=== PATIENT | female | born 1945 | race Caucasian/White ===

== ENCOUNTER 2019-04-14 16:36 | Outpatient (CLI) | payer MEDICARE, BC, SELFPAY ==
[2019-04-14 17:54] LABS: Hepatitis B Surface Antigen Negative (Negative)
[2019-04-14 18:00] LABS: HAV RESULT Negative (Negative); Hepatitis B Core IgM Result Negative (Negative)
[2019-04-14 18:12] LABS: HIV 1/2 Ab P24 Ag Result Negative (Negative); Hepatitis C Virus Antibody Negative (Negative)
[2019-04-16 22:19] LABS: NIL 0.01 IU/mL; Quantiferon TB Plus, 1T NEGATIVE (NEGATIVE)
== END 2019-04-14 16:37 | disposition home or self-care (01) ==
PROVIDERS: PCP Internal Medicine
DX: K75.9 Inflammatory liver disease, unspecified (principal); L40.0 Psoriasis vulgaris; Z79.899 Other long term (current) drug therapy; Z11.4 Encounter for screening for human immunodeficiency virus [HIV]
CPT/HCPCS: 36415; 86480; 86703; G0432

== ENCOUNTER 2019-06-02 00:29 | Day surgery (SDC) | payer MEDICARE, BC, SELFPAY ==
[2019-05-27 13:03] VITALS: BMI 25.2
[2019-06-02] MEDS: LACTATED RINGERS 1,000 ML 150 ML IV CONT ×2 (09:22→10:35)
[2019-06-02 09:24] VITALS: BP 135/63; PULSE 72; RESP 16; TEMP 36.5; O2SAT 99
--- NOTE | 2019-06-02 10:03 | WPDGICN ---
Assessment and Plan Additional Plan This is a 73-year-old white female patient seen in evaluation at the request Dr. Juvencio Ortiz. Patient presents for colonoscopy. Patient complains of episode of diarrhea alternating with constipation. She has noticed some blood in her stools. And also notes abdominal pain. She states symptoms began in November 2018. In February she was treated for sinusitis with antibiotics. She has had episodes of incontinence associated with blood in his stools episodically since that time. She now complains of a vague right-sided abdominal and back pain. She has been treated empirically with antibiotics apparently stool cultures have been negative. She denies a fever. Symptoms have improved upon starting Colace 100 mg p.o. daily. Past medical history significant for anxiety. Current medications include Atacand, Nexium, folic acid, Xanax, Colace, allergies include amoxicillin, codeine and erythromycin. Physical exam reveals patient to be alert. Vital signs stable. HEENT exam unremarkable. Lungs are clear to auscultation and percussion. Heart is without murmur or extra sounds. Abdominal exam bowel sounds present soft nontender with no hepatosplenomegaly. Digital external rectal exam normal. Impression 1. Neoplasia screening. It has been 10 years since last exam plan is for colonoscopy. 2. Rectal bleeding. Etiology unclear given her other complaints cannot be certain there is a lesion in the colon plan is for colonoscopy. 3. Constipation. Appears to alternate with diarrhea. This is a change in her usual bowel habits. Plan is to continue Colace. This will be evaluated at time of colonoscopy. High-fiber diet may also be of some benefit. GI Consult Note Consult date/time: 06/02/19 10:03 HPI: Yoana White is a 73 year old female [facility] Social History Social History Smoking status: Never smoker Second hand tobacco smoke exposure: No Alcohol intake: current Gender identity (if verbalized by the patient): Female Meds Home Medications and Allergies Home Medications Medication Instructions Recorded Confirmed Type alprazolam 0.25 mg tablet 0.25 mg PO TID PRN 02/08/19 05/27/19 History candesartan 8 mg tablet 8 mg PO DAILY 02/08/19 05/27/19 History cyanocobalamin (vitamin B-12) 1,000 mcg PO DAILY 02/08/19 05/27/19 History 1,000 mcg tablet esomeprazole magnesium 40 mg 40 mg PO BID cap 02/08/19 05/27/19 History capsule,delayed release ssbqurqr-wab-DV 200 mcg-vit K 15 1 tablet PO DAILY tablet 02/08/19 05/27/19 History mcg-lycope 150 eqj-gpglyk-vedf tablet ergocalciferol (vitamin D2) 1,250 50,000 unit PO MONTHLY #12 cap 03/04/19 05/27/19 Rx mcg (50,000 unit) capsule folic acid 1 mg tablet 1 mg PO DAILY #90 tablet 04/12/19 05/27/19 Rx calcium citrate 250 mg PO DAILY 05/27/19 05/27/19 History Allergies Allergy/AdvReac Type Severity Reaction Status Date / Time amoxicillin Allergy Unknown Gastrointestinal Verified 06/02/19 09:10 Upset clavulanic acid Allergy Unknown Gastrointestinal Verified 06/02/19 09:10 Upset codeine Allergy Unknown Fainting Verified 06/02/19 09:10 erythromycin base Allergy Unknown Gastrointestinal Verified 06/02/19 09:10 Upset Gthldfr-Sbc-Vve Reductase Allergy Unknown Gastrointestinal Verified 06/02/19 09:10 Inhibitor Upset Vital Signs Vital Signs - 24 hr 06/02/19 09:24 Temperature 36.5 C Pulse Rate 72 Respiratory Rate 16 Blood Pressure 135/63 Pulse Oximetry 99
--- NOTE | 2019-06-02 10:11 | WPDANESEPPF ---
Anes - Initial Pre Proc Eval Procedure: Operation Date: 06/02/19 10:00 Proposed Procedures p Colonoscopy - Manan Hill MD Date/Time: 06/02/19 10:11 Surgeon: Manan Hill MD Pre Op Diagnosis: Lower GI Bleeding/ Change In Bowel Habits Patient Data Age: 73 Gender: F Height: 5 ft Weight: 58.3 kg Last Vital Signs Temp 97.7 F 06/02/19 09:24 Pulse 72 06/02/19 09:24 Resp 16 06/02/19 09:24 BP 135/63 06/02/19 09:24 Pulse Ox 99 06/02/19 09:24 Allergies Allergy/AdvReac Type Severity Reaction Status Date / Time amoxicillin Allergy Unknown Gastrointestinal Verified 06/02/19 09:10 Upset clavulanic acid Allergy Unknown Gastrointestinal Verified 06/02/19 09:10 Upset codeine Allergy Unknown Fainting Verified 06/02/19 09:10 erythromycin base Allergy Unknown Gastrointestinal Verified 06/02/19 09:10 Upset Ldtgbic-Ilb-Zlt Reductase Allergy Unknown Gastrointestinal Verified 06/02/19 09:10 Inhibitor Upset Home Medications Medication Instructions Recorded Confirmed Type alprazolam 0.25 mg tablet 0.25 mg PO TID PRN 02/08/19 05/27/19 History candesartan 8 mg tablet 8 mg PO DAILY 02/08/19 05/27/19 History cyanocobalamin (vitamin B-12) 1,000 mcg PO DAILY 02/08/19 05/27/19 History 1,000 mcg tablet esomeprazole magnesium 40 mg 40 mg PO BID cap 02/08/19 05/27/19 History capsule,delayed release baycoduw-swo-MK 200 mcg-vit K 15 1 tablet PO DAILY tablet 02/08/19 05/27/19 History mcg-lycope 150 mqj-vhjbzs-jkmt tablet ergocalciferol (vitamin D2) 1,250 50,000 unit PO MONTHLY #12 cap 03/04/19 05/27/19 Rx mcg (50,000 unit) capsule folic acid 1 mg tablet 1 mg PO DAILY #90 tablet 04/12/19 05/27/19 Rx calcium citrate 250 mg PO DAILY 05/27/19 05/27/19 History Patient hx anesthesia problems: post op nausea/vomiting Family hx anesthesia problems: none PMFSH Past Medical History Medical History (Updated 06/02/19 @ 10:11 by Constantine Monroy MD) Essential (primary) hypertension Hyperthyroidism Mixed hyperlipidemia Social History Social History Smoking status: Never smoker Second hand tobacco smoke exposure: No Alcohol intake: current Gender identity (if verbalized by the patient): Female Anes - Eval Final PreProcedure Day of Procedure 06/02/19 10:11 Patient weight: normal Heart: regular rate and rhythm Lungs: clear to auscultation Airway: Mallampati scale class III Neurological: alert and oriented Last oral intake: >/= 8 hours ASA classification: II Emergent: no Anesthetic plan: proceed Anesthesia type and monitoring: general GIVS and standard monitoring Informed Consent: The patient's anesthetic plan and its attendant risks and benefits were discussed with the patient/family/POA. Questions were solicited and answers provided to the satisfaction of the patient/family/POA.
[2019-06-02 10:57] VITALS: BP 114/63; PULSE 79; RESP 20; O2SAT 94
[2019-06-02 11:07] VITALS: BP 118/68; PULSE 65; RESP 15; O2SAT 98
[2019-06-02 11:17] VITALS: BP 121/66; PULSE 61; RESP 20; O2SAT 97
== END 2019-06-02 11:32 | disposition home or self-care (01) ==
PROVIDERS: PCP Internal Medicine; Visit Provider Internal Medicine Gastroenterology
PROC: 0DJD8ZZ Inspection of Lower Intestinal Tract, Via Natural or Artificial Opening Endoscopic (ICD-10-PCS; CPT 45378; principal; 2019-06-02 10:00)
DX: Z12.11 Encounter for screening for malignant neoplasm of colon (principal); K64.8 Other hemorrhoids; R19.4 Change in bowel habit; I10 Essential (primary) hypertension; E78.2 Mixed hyperlipidemia; E05.90 Thyrotoxicosis, unspecified without thyrotoxic crisis or storm
CPT/HCPCS: G0121; J2704; J7120

== ENCOUNTER 2019-09-03 09:24 | Outpatient (CLI) | payer MEDICARE, BC, SELFPAY ==
[2019-09-03 10:12] LABS: Alanine Aminotransferase 14 U/L (4-35); Albumin Level 4.1 g/dL (3.5-5.1); Alkaline Phosphatase 71 U/L (38-126); Aspartate Amino Transferase 25 U/L (14-36); Bilirubin,Total 0.4 mg/dL (0.2-1.3); Blood Urea Nitrogen 8 mg/dL (7-17); Calcium 9.1 mg/dL (8.4-10.2); Carbon Dioxide 28 mmol/L (22-30); Chloride 104 mmol/L (98-107); Cholesterol 245 mg/dL (0-200); Estimated Glomerular Filt Rate > 60; Glucose 91 mg/dL (65-105); HDL Direct 78 mg/dL; Potassium 4.2 mmol/L (3.4-5.0); Sodium 136 mmol/L (137-145); Triglycerides 202 mg/dL (<150)
[2019-09-03 10:23] LABS: LDL Cholesterol Direct 138 mg/dL
[2019-09-03 10:48] LABS: Vitamin D 25 Hydroxy 27.1 ng/mL
== END 2019-09-03 09:25 | disposition home or self-care (01) ==
PROVIDERS: PCP Internal Medicine; Visit Provider Internal Medicine
DX: E78.5 Hyperlipidemia, unspecified (principal); I10 Essential (primary) hypertension; Z79.899 Other long term (current) drug therapy; E55.9 Vitamin D deficiency, unspecified
CPT/HCPCS: 36415; 80053; 80061; 82306

== ENCOUNTER 2020-01-21 13:07 | Outpatient (CLI) | payer MEDICARE, BC, SELFPAY ==
[2020-01-21 13:45] LABS: Alanine Aminotransferase 16 U/L (4-35); Albumin Level 4.2 g/dL (3.5-5.1); Alkaline Phosphatase 69 U/L (38-126); Anion Gap 7 mmol/L (8-16); Aspartate Amino Transferase 28 U/L (14-36); Bilirubin,Total 0.4 mg/dL (0.2-1.3); Blood Urea Nitrogen 7 mg/dL (7-17); Calcium 9.8 mg/dL (8.4-10.2); Carbon Dioxide 31 mmol/L (22-30); Chloride 101 mmol/L (98-107); Estimated Glomerular Filt Rate > 60; Glucose 119 mg/dL (65-105); Potassium 4.3 mmol/L (3.4-5.0); Sodium 139 mmol/L (137-145)
== END 2020-01-21 13:08 | disposition home or self-care (01) ==
PROVIDERS: PCP Internal Medicine; Visit Provider Internal Medicine
DX: R19.7 Diarrhea, unspecified (principal)
CPT/HCPCS: 36415; 80053

== ENCOUNTER 2020-01-22 11:20 | Outpatient (CLI) | payer MEDICARE, BC, SELFPAY | END 2020-01-22 11:21 | disposition home or self-care (01) | PROVIDERS: PCP Internal Medicine; Visit Provider Internal Medicine | DX: R19.7 Diarrhea, unspecified (principal) | CPT/HCPCS: 87045; 87046; 87427 ==

== ENCOUNTER 2020-03-11 08:47 | Outpatient (CLI) | payer MEDICARE, BC, SELFPAY ==
[2020-03-11 09:17] LABS: Alanine Aminotransferase 14 U/L (4-35); Alkaline Phosphatase 53 U/L (38-126); Anion Gap 5 mmol/L (8-16); Aspartate Amino Transferase 23 U/L (14-36); Bilirubin,Total 0.5 mg/dL (0.2-1.3); Blood Urea Nitrogen 13 mg/dL (7-17); Calcium 9.3 mg/dL (8.4-10.2); Carbon Dioxide 31 mmol/L (22-30); Chloride 101 mmol/L (98-107); Cholesterol 248 mg/dL (0-200); Estimated Glomerular Filt Rate > 60; Glucose 91 mg/dL (65-105); HDL Direct 89 mg/dL; Potassium 4.3 mmol/L (3.4-5.0); Sodium 137 mmol/L (137-145); Triglycerides 178 mg/dL (<150)
[2020-03-11 09:28] LABS: LDL Cholesterol Direct 132 mg/dL
[2020-03-11 10:57] LABS: Vitamin D 25 Hydroxy 33.6 ng/mL
== END 2020-03-11 08:48 | disposition home or self-care (01) ==
PROVIDERS: PCP Internal Medicine; Visit Provider Nurse Practitioner
DX: E78.2 Mixed hyperlipidemia (principal); E55.9 Vitamin D deficiency, unspecified
CPT/HCPCS: 36415; 80053; 80061; 82306

== ENCOUNTER 2020-04-26 11:33 | Outpatient (NON) | payer MEDICARE, BC, SELFPAY ==
[2020-04-26 22:27] LABS: SARS-CoV-2 RNA PCR Negative
== END 2020-04-26 11:34 ==
LOC: ANHCOVIDDT 11:35
PROVIDERS: Family Provider Internal Medicine; PCP Internal Medicine; Visit Provider Internal Medicine
DX: Z20.822 Contact with and (suspected) exposure to COVID-19 (principal); R09.89 Other specified symptoms and signs involving the circulatory and respiratory systems
CPT/HCPCS: C9803; U0003; U0005

== ENCOUNTER 2020-09-11 12:13 | Outpatient (CLI) | payer MEDICARE, BC, SELFPAY ==
[2020-09-11 12:44] LABS: Anion Gap 9 mmol/L (8-16); Blood Urea Nitrogen 10 mg/dL (7-17); Calcium 9.4 mg/dL (8.4-10.2); Carbon Dioxide 29 mmol/L (22-30); Chloride 102 mmol/L (98-107); Estimated Glomerular Filt Rate > 60; Glucose 102 mg/dL (65-105); Potassium 4.4 mmol/L (3.4-5.0); Sodium 140 mmol/L (137-145)
[2020-09-11 13:14] LABS: Vitamin D 25 Hydroxy 39.7 ng/mL
== END 2020-09-11 12:14 | disposition home or self-care (01) ==
PROVIDERS: PCP Internal Medicine; Visit Provider Internal Medicine
DX: E55.9 Vitamin D deficiency, unspecified (principal); I10 Essential (primary) hypertension
CPT/HCPCS: 36415; 80048; 82306

== ENCOUNTER 2021-03-03 14:23 | Emergency (ER) | payer MEDICARE, BC, SELFPAY ==
--- NOTE | ~2021-03-03 | XR_ITS ---
EXAMINATION: XR hand LT min 3V DATE: 03/03/2021 14:57 INDICATION: Left hand pain. Fall. TECHNIQUE: 3 views of left hand were obtained. COMPARISON: None. FINDINGS: Bone alignment is normal. No fracture. There is severe osteoarthritis of first carpometacar pal joint and mild osteoarthrosis of first and second metacarpophalangeal joints and second and third distal interphalangeal joints. IMPRESSION: 1. Polyarticular osteoarthritis. Reviewed, dictated and finalized at location A. WAY SIGNAL TECHNICIAN
[2021-03-03 14:35] VITALS: BP 128/74; PULSE 78; RESP 16; TEMP 37.1; O2SAT 100
--- NOTE | 2021-03-03 15:20 | ED.UPPEXIN ---
HPI - Extremity Injury (Upper) General Chief Complaint: Extremity Injury, Upper Stated Complaint: left hand swelling/pain Time Seen by Provider: 03/03/21 15:20 Source: patient Mode of arrival: ambulatory Limitations: no limitations History of Present Illness HPI narrative: Bladimir White is a 75 yo female with a PMH of anxiety, HTN, GERD, [facility] after a fall on Friday onto her left hand, has been taking Tylenol, can move but has pain and also has been wearing brace. Related Data Home Medications Medication Instructions Recorded Confirmed cyanocobalamin (vitamin B-12) 1,000 mcg PO DAILY 02/08/19 03/03/21 1,000 mcg tablet kqkwxvcs-xex-HF 200 mcg-vit K 15 1 tablet PO DAILY tablet 02/08/19 03/03/21 mcg-lycope 150 fap-otprfx-hjbi tablet calcium citrate 250 mg PO DAILY 05/27/19 03/03/21 clobetasol 0.05 % topical ointment 1 applic TOPICAL DAILY 09/08/19 03/03/21 betamethasone dipropionate TOPICAL 03/03/21 calcipotriene TOPICAL 03/03/21 triamcinolone acetonide TOPICAL 03/03/21 Allergies Allergy/AdvReac Type Severity Reaction Status Date / Time amoxicillin Allergy Mild Gastrointestinal Verified 03/03/21 14:49 Upset clavulanic acid Allergy Mild Gastrointestinal Verified 03/03/21 14:49 Upset codeine Allergy Mild Fainting Verified 03/03/21 14:49 erythromycin base Allergy Mild Gastrointestinal Verified 03/03/21 14:49 Upset Hfrnuir-NZP-LdL Reductase Allergy Mild Gastrointestinal Verified 03/03/21 14:49 Inhibitor Upset [Zvrgtce-Upx-Vhx Reductase Inhibitor] Review of Systems Review of Systems: CONSTITUTIONAL: Denies fever, chills, sweats. EYES: Denies visual changes, redness, discharge. ENT: Denies rhinorrhea, congestion, sore throat, otalgia. CARDIOVASCULAR: Denies chest pain, palpitations, edema. RESPIRATORY: Denies dyspnea, wheezing, cough GASTROINTESTINAL: Denies abdominal pain, nausea, vomiting, diarrhea. GENITOURINARY: Denies dysuria, hematuria, abnormal discharge SKIN: Denies rash or itching. NEUROLOGIC: Denies numbness, or focal weakness. PSYCHIATRIC: Denies anxiety or depression. Left hand pain after fall PMFSH Past Medical History Medical History Essential (primary) hypertension Hyperthyroidism Mixed hyperlipidemia Social History Social History Smoking status: Never smoker Second hand tobacco smoke exposure: Yes Alcohol intake: current Drinks per week: 10 Gender identity (if verbalized by the patient): Female Comments At time of signature, I agree with nursing past medical, surgical, social and family history. There is no relevant family history pertinent to the presenting complaint. Exam Narrative: GENERAL: This is a well-nourished, well-developed patient, in mild distress. HEAD: normocephalic, atraumatic. EYES: Sclera clear/white. Vision is grossly intact. EARS: External ears normal. Hearing grossly intact. NOSE: External nose normal without nasal discharge, THROAT: Mucous membranes moist, NECK: Neck supple, non-tender CARDIOVASCULAR: Regular rate and rhythm without murmurs, gallops, or rubs. RESPIRATORY: Clear to auscultation. Breath sounds equal bilaterally. No wheezes, rales, or rhonchi. GASTROINTESTINAL: Abdomen soft, SKIN: warm, intact with no suspicious lesions or rash, good texture and turgor. NEURO: awake, alert, and oriented to person, place and time. There were no obvious focal neurologic abnormalities. Steady gait EXTREMITIES: Normal range of motion. Left hand is puffy on dorsum side although patient states is less than it has been, is able to move all fingers and move wrist but has some pain BACK: Nontender without deformity Course Course Emergency Course: Patient fell while putting up [employer] decorations on Friday and hurt left hand X-ray left hand: Polyarticular osteoarthritis, no acute fracture bones were n
== END 2021-03-03 15:40 | disposition home or self-care (01) ==
PROVIDERS: Emergency Provider Nurse Practitioner; PCP Internal Medicine
DX: S63.502A Unspecified sprain of left wrist, initial encounter (principal); S66.912A Strain of unspecified muscle, fascia and tendon at wrist and hand level, left hand, initial encounter; I10 Essential (primary) hypertension; E78.2 Mixed hyperlipidemia; X58.XXXA Exposure to other specified factors, initial encounter
CPT/HCPCS: 73130; 99213; G0463

== ENCOUNTER 2021-03-14 09:46 | Outpatient (CLI) | payer MEDICARE, BC, SELFPAY ==
[2021-03-14 10:59] LABS: Alanine Aminotransferase 15 U/L (4-35); Albumin Level 4.3 g/dL (3.5-5.1); Alkaline Phosphatase 65 U/L (38-126); Anion Gap 11 mmol/L (8-16); Aspartate Amino Transferase 28 U/L (14-36); Bilirubin,Total 0.5 mg/dL (0.2-1.3); Blood Urea Nitrogen 8 mg/dL (7-17); Calcium 9.3 mg/dL (8.4-10.2); Carbon Dioxide 26 mmol/L (22-30); Chloride 102 mmol/L (98-107); Cholesterol 242 mg/dL (0-200); Estimated Glomerular Filt Rate > 60; Glucose 106 mg/dL (65-110); HDL Direct 106 mg/dL; Potassium 4.3 mmol/L (3.4-5.0); Sodium 139 mmol/L (137-145); Triglycerides 120 mg/dL (<150)
[2021-03-14 11:10] LABS: LDL Cholesterol Direct 115 mg/dL
[2021-03-14 11:24] LABS: Vitamin D 25 Hydroxy 61.1 ng/mL
== END 2021-03-14 09:47 | disposition home or self-care (01) ==
LOC: ANHLAB 09:50
PROVIDERS: PCP Internal Medicine; Visit Provider Nurse Practitioner
DX: E78.2 Mixed hyperlipidemia (principal); E55.9 Vitamin D deficiency, unspecified
CPT/HCPCS: 36415; 80053; 80061; 82306

== ENCOUNTER 2021-11-01 08:22 | Outpatient (CLI) | payer MEDICARE, BC, SELFPAY ==
[2021-11-01 09:01] LABS: Alanine Aminotransferase 16 U/L (6-35); Albumin Level 4.1 g/dL (3.5-5.1); Alkaline Phosphatase 59 U/L (38-126); Anion Gap 8 mmol/L (8-16); Aspartate Amino Transferase 28 U/L (14-36); Bilirubin,Total 0.6 mg/dL (0.2-1.3); Blood Urea Nitrogen 9 mg/dL (7-17); Calcium 8.6 mg/dL (8.4-10.2); Carbon Dioxide 27 mmol/L (22-30); Chloride 103 mmol/L (98-107); Estimated Glomerular Filt Rate > 60; Glucose 101 mg/dL (65-110); Potassium 4.5 mmol/L (3.4-5.0); Sodium 138 mmol/L (137-145)
[2021-11-01 09:14] LABS: Vitamin D 25 Hydroxy 69.4 ng/mL
== END 2021-11-01 08:23 | disposition home or self-care (01) ==
LOC: ANHLAB 08:24
PROVIDERS: PCP Internal Medicine; Visit Provider Internal Medicine
DX: E55.9 Vitamin D deficiency, unspecified (principal); Z79.899 Other long term (current) drug therapy; I10 Essential (primary) hypertension
CPT/HCPCS: 36415; 80053; 82306

== ENCOUNTER 2022-05-25 10:06 | Outpatient (CLI) | payer MEDICARE, BC, SELFPAY ==
[2022-05-25 11:16] LABS: Hematocrit 41.4 % (37.0-47.0); Hemoglobin 13.8 g/dL (12.0-15.0); Mean Corpuscular HGB Conc 33.3 g/dl (32-36); Mean Corpuscular Hemoglobin 32.5 pg (26-34); Mean Corpuscular Volume 97.4 fl (80-100); Mean Platelet Volume 11.6 fl (7.4-10.4); Platelet Count Result 226 k/mm3 (150-375); Red Blood Count 4.25 M/mm3 (4.2-5.4); Red Cell Distribution Width 12.6 % (11.5-14.5); White Blood Count 4.9 K/mm3 (4.5-10.0)
[2022-05-25 11:33] LABS: Alanine Aminotransferase 16 U/L (6-35); Albumin Level 4.2 g/dL (3.5-5.1); Alkaline Phosphatase 54 U/L (38-126); Anion Gap 5 mmol/L (8-16); Aspartate Amino Transferase 26 U/L (14-36); Bilirubin,Total 0.5 mg/dL (0.2-1.3); Blood Urea Nitrogen 8 mg/dL (7-17); Calcium 8.9 mg/dL (8.4-10.2); Carbon Dioxide 27 mmol/L (22-30); Chloride 102 mmol/L (98-107); Estimated Glomerular Filt Rate > 60; Glucose 96 mg/dL (65-110); Potassium 4.2 mmol/L (3.4-5.0); Sodium 134 mmol/L (137-145)
[2022-05-25 11:57] LABS: Vitamin D 25 Hydroxy 47.8 ng/mL
== END 2022-05-25 10:07 | disposition home or self-care (01) ==
LOC: ANHLAB 10:10
PROVIDERS: PCP Internal Medicine; Referring Provider Nurse Practitioner; Visit Provider Internal Medicine
DX: K21.9 Gastro-esophageal reflux disease without esophagitis (principal); I10 Essential (primary) hypertension; E55.9 Vitamin D deficiency, unspecified
CPT/HCPCS: 36415; 80053; 82306; 85027

== ENCOUNTER 2022-08-13 16:04 | Emergency (ER) | payer MEDICARE, BC, SELFPAY ==
[2022-08-13 16:11] VITALS: BP 146/80; PULSE 75; RESP 16; TEMP 36.6; O2SAT 99
[2022-08-13 16:15] VITALS: BP 146/80; PULSE 75; RESP 16; TEMP 36.6; O2SAT 99
--- NOTE | 2022-08-13 16:33 | ED.GENADULT ---
HPI - General Adult General Chief complaint: Dental/Oral Stated complaint: Tongue Pain Time Seen by Provider: 08/13/22 16:33 Source: patient, RN notes reviewed and old records reviewed Mode of arrival: ambulatory Limitations: no limitations History of Present Illness HPI narrative: 76-year-old female presents to the [facility] with tongue pain for 6 weeks Patient states that 6 weeks ago she burn to the left lateral tongue with some tomato soup. Went on vacation for couple weeks, tried eating some teriyaki and states the pain or burning sensation flared up. Has history of GERD and anxiety Has appointment with Dr. Alston on September 03 Related Data Home Medications Medication Instructions Recorded Confirmed cyanocobalamin (vitamin B-12) 1,000 mcg PO DAILY 02/08/19 08/13/22 1,000 mcg tablet (Vitamin B-12) calcium citrate 250 mg PO DAILY 05/27/19 08/13/22 Allergies Allergy/AdvReac Type Severity Reaction Status Date / Time amoxicillin Allergy Mild Gastrointestinal Verified 05/28/22 13:15 Upset clavulanic acid Allergy Mild Gastrointestinal Verified 05/28/22 13:15 Upset codeine Allergy Mild Fainting Verified 05/28/22 13:15 erythromycin base Allergy Mild Gastrointestinal Verified 05/28/22 13:15 Upset Aqwuybm-GGS-XlA Reductase Allergy Mild Gastrointestinal Verified 05/28/22 13:15 Inhibitor Upset [Gkbiqwc-Ngi-Vng Reductase Inhibitor] Review of Systems Review of Systems: All systems reviewed & are unremarkable except as noted in HPI and below Constitutional: Constitutional: Reports no additional constitutional complaints Eyes: Eyes: Reports no additional eye complaints ENT: Reports as per HPI Cardiovascular: Cardiovascular: Reports no additional cardiovascular complaints, Denies chest pain and Denies dyspnea Respiratory: Respiratory: Reports no additional respiratory complaints, Denies chest congestion, Denies cough and Denies dyspnea Gastrointestinal: Gastrointestinal: Reports no additional gastrointestinal complaints, Denies abdominal pain, Denies nausea and Denies vomiting Musculoskeletal: Musculoskeletal: Reports no additional musculoskeletal complaints Integumentary/Breasts: Skin/Breast: Reports system reviewed and no additional complaints, except as docu Neurologic: Reports system reviewed and no additional complaints, except as documented Psychiatric: Psychiatric: Reports no additional psychiatric complaints Allergic/Immunologic: Allergic/Immunologic: Reports no additional allergic/immunologic complaints PMFSH Past Medical History Medical History Anxiety Chronic GERD COVID-19 Essential (primary) hypertension Hyperthyroidism Mixed hyperlipidemia Seasonal allergic rhinitis Vitamin D deficiency Social History Social History Smoking status: Never smoker Second hand tobacco smoke exposure: Yes Alcohol intake: current Drinks per week: 7 Substance use: never Substance use type: does not use Gender identity (if verbalized by the patient): Female Comments At the time of my signature, I reviewed and agree with the nursing past medical, surgical, social, and family history. There is no relevant family history pertinent to the patient complaint. Exam Const: General: cooperative, healthy appearing, comfortable, no acute distress, well developed, alert and well nourished Nutritional Appearance: well nourished Orientation/consciousness: patient oriented x3 Limitations: no limitations HENMT: Head: normal to inspection Ears: hearing grossly normal bilaterally and external ears normal Face/Nose/Sinus: Normal external nose present, Normal nares present, Normal nasal mucous membranes and turbinates present and normal facial exam Face and sinus: normal facial exam Mouth: Yes Normal oral and palatal mucosa present, Yes lip normal and Yes moist mucous membranes Brittnee
== END 2022-08-13 16:59 | disposition home or self-care (01) ==
PROVIDERS: Emergency Provider Nurse Practitioner; PCP Family Medicine
DX: K14.8 Other diseases of tongue (principal); I10 Essential (primary) hypertension; E05.90 Thyrotoxicosis, unspecified without thyrotoxic crisis or storm; E78.2 Mixed hyperlipidemia; K21.9 Gastro-esophageal reflux disease without esophagitis; F41.9 Anxiety disorder, unspecified; Z86.16 Personal history of COVID-19
CPT/HCPCS: 99212; G0463

== ENCOUNTER 2022-10-03 10:00 | Outpatient (CLI) | payer MEDICARE, BC, SELFPAY | END 2022-10-03 10:01 | disposition home or self-care (01) | PROVIDERS: PCP Family Medicine; Visit Provider Family Medicine | DX: I10 Essential (primary) hypertension (principal) | CPT/HCPCS: 36415; 84443 ==

== ENCOUNTER 2022-12-06 09:53 | Outpatient (CLI) | payer MEDICARE, BC, SELFPAY ==
--- NOTE | ~2022-12-06 | DEXA_ITS ---
Bone Density Report Name: KEYLA WILKINSON Age: 77 Sex: Female Ethnicity: White Date of : 1945 Indication: postmenopausal; screening for osteoporosis; height loss; Referring Provider: TITUS BEGUM Study: Bone densitometry was performed. Exam Date: December 06, 2022 Accession number: [id number] Bone Density: Region BMD T-score Z-score Classification AP Spine(L1-L4) 0.971 -0.7 1.8 Normal Femoral Neck (Left) 0.772 -0.7 1.5 Normal Total Hip (Left) 0.849 -0.8 1.1 Normal Femoral Neck (Right) 0.769 -0.7 1.5 Normal Total Hip (Right) 0.835 -0.9 1.0 Normal Total Hip Mean 0.842 -0.9 1.1 Normal World Health Organization criteria for BMD impression classify patients as: Normal (T-score at or above -1.0), Osteopenia (T-score between -1.0 and -2.5), or Osteoporosis (T-score at or below -2.5). 10-year Fracture Risk: FRAX not reported because: All T-scores for Spine Total, Hip Total, Femoral Neck at or above -1.0 Clinical Information Provided by Patient: Has used the following medications: Vitamin D, Calcium Patient maximum height was 61 Menopause Age: 48 No regular weight bearing exercise Does not regularly consume dairy products Drinks caffeinated beverages Onset of menses at age 10 Number of children 0 Impression: The patient has normal bone mass. Discussion: BONE DENSITY IS ABOVE THE MINIMUM DESIRABLE LEVEL AT ALL SKELETAL SITES TESTED. This patient?s bone mineral density is above the minimum desirable level (T-score -1.0 or better) at all sites measured. The patient should follow a healthful lifestyle (good nutrition with adequate calcium and vitamin D, and appropriate weight-bearing exercise). Follow-Up: Consider repeating this study in 5 years or sooner if there is some new clinical indication. Reported by: MARITO on 12/06/2022 10:35:00 AM. Reviewed, dictated and finalized at location AJennifer IQBAL
== END 2022-12-06 09:54 | disposition home or self-care (01) ==
PROVIDERS: PCP Family Medicine; Visit Provider Family Medicine
DX: Z78.0 Asymptomatic menopausal state (principal)
CPT/HCPCS: 77080

== ENCOUNTER 2023-03-10 09:14 | Outpatient (CLI) | payer MEDICARE, BC, SELFPAY ==
[2023-03-10 10:29] LABS: Basophils Absolute Auto 0.1 K/mm3 (0.0-0.1); Basophils Percent Auto 1.2 % (0.2-1.2); Eosinophils Absolute Auto 0.1 K/mm3 (0-0.3); Hematocrit 42.5 % (37.0-47.0); Hemoglobin 13.5 g/dL (12.0-15.0); Immature Granulocyte Absolute 0.02 K/mm3 (0.00-0.031); Immature Granulocyte Percent A 0.4 % (0-0.5); Lymphocytes Absolute Auto 1.15 K/mm3 (0.9-3.2); Lymphocytes Percent Auto 22.5 % (18.3-44.2); Mean Corpuscular HGB Conc 31.8 g/dl (32-36); Mean Corpuscular Hemoglobin 32.5 pg (26-34); Mean Corpuscular Volume 102.2 fl (80-100); Mean Platelet Volume 11.3 fl (7.4-10.4); Monocytes Absolute Auto 0.4 K/mm3 (0.1-0.6); Monocytes Percent Auto 8.6 % (2.6-8.5); Neutrophils Absolute Auto 3.3 K/mm3 (1.3-6.7); Neutrophils Percent Auto 65.3 % (45.5-73.1); Platelet Count Result 228 k/mm3 (150-375); Red Blood Count 4.16 M/mm3 (4.2-5.4); Red Cell Distribution Width 12.8 % (11.5-14.5); White Blood Count 5.1 K/mm3 (4.5-10.0)
[2023-03-10 10:40] LABS: Alanine Aminotransferase 13 U/L (6-35); Albumin Level 4.1 g/dL (3.5-5.1); Alkaline Phosphatase 62 U/L (38-126); Anion Gap 3 mmol/L (8-16); Aspartate Amino Transferase 24 U/L (14-36); Bilirubin,Total 0.7 mg/dL (0.2-1.3); Blood Urea Nitrogen 7 mg/dL (7-17); Carbon Dioxide 29 mmol/L (22-30); Chloride 105 mmol/L (98-107); Cholesterol 245 mg/dL (0-200); Estimated Glomerular Filt Rate > 60; Glucose 95 mg/dL (65-110); HDL Direct 107 mg/dL; Sodium 137 mmol/L (137-145); Triglycerides 164 mg/dL (<150)
[2023-03-10 10:50] LABS: LDL Cholesterol Direct 106 mg/dL
[2023-03-10 12:15] LABS: Vitamin D 25 Hydroxy 43.4 ng/mL
== END 2023-03-10 09:15 | disposition home or self-care (01) ==
PROVIDERS: PCP Family Medicine; Visit Provider Family Medicine
DX: I10 Essential (primary) hypertension (principal); F32.A Depression, unspecified; E55.9 Vitamin D deficiency, unspecified; J30.2 Other seasonal allergic rhinitis; F41.9 Anxiety disorder, unspecified; K21.9 Gastro-esophageal reflux disease without esophagitis; E78.2 Mixed hyperlipidemia; M54.50 Low back pain, unspecified; G89.29 Other chronic pain; Z79.890 Hormone replacement therapy; R92.8 Other abnormal and inconclusive findings on diagnostic imaging of breast; E05.90 Thyrotoxicosis, unspecified without thyrotoxic crisis or storm
CPT/HCPCS: 36415; 80053; 80061; 82306; 85025

== ENCOUNTER 2023-07-29 15:12 | Emergency (ER) | payer MEDICARE, BC, SELFPAY ==
[2023-07-29 15:20] VITALS: BP 137/64; PULSE 94; RESP 18; TEMP 36.6; O2SAT 98
--- NOTE | 2023-07-29 15:20 | ED.URI ---
HPI - URI/Sore Throat General Chief Complaint: Upper Respiratory Infection Stated Complaint: Sinus/Sore Throat Time Seen by Provider: 07/29/23 15:38 Source: patient and RN notes reviewed Mode of arrival: ambulatory Limitations: no limitations History of Present Illness HPI Narrative: 77-year-old female presents with concern for 6 day history of sinus drainage, sore throat, painful uvula. Reports she has been taking Claritin-D, Aleve and Tylenol, Flonase without much relief. Reports she was exposed to strep about 10 days ago. MD elicited complaint: sore throat Related Data Home Medications Medication Instructions Recorded Confirmed cyanocobalamin (vitamin B-12) 1,000 mcg PO DAILY 02/08/19 07/29/23 1,000 mcg tablet (Vitamin B-12) calcium citrate 250 mg PO DAILY 05/27/19 07/29/23 Allergies Allergy/AdvReac Type Severity Reaction Status Date / Time amoxicillin Allergy Mild Gastrointestinal Verified 07/29/23 15:17 Upset clavulanic acid Allergy Mild Gastrointestinal Verified 07/29/23 15:17 Upset codeine Allergy Mild Fainting Verified 07/29/23 15:17 erythromycin base Allergy Mild Gastrointestinal Verified 07/29/23 15:17 Upset Fmfvkvp-ELV-UsK Reductase Allergy Mild Gastrointestinal Verified 07/29/23 15:17 Inhibitor Upset [Rknofxw-Kvp-Wvd Reductase Inhibitor] Review of Systems Review of Systems: CONSTITUTIONAL: Denies malaise, chills, sweats, or fever. EYES: Denies visual changes, redness, or discharge. ENT: Reports rhinorrhea, congestion, and sore throat. CARDIOVASCULAR: Denies chest pain, palpitations, or edema. RESPIRATORY: Denies cough. Denies dyspnea. GASTROINTESTINAL: Denies abdominal pain, nausea, vomiting, diarrhea SKIN: Denies rash or itching. MUSCULOSKELETAL: Denies myalgia. NEUROLOGIC: Denies headache. All systems reviewed & are unremarkable except as noted in HPI and below PMFSH Past Medical History Medical History (Updated 07/29/23 @ 15:45 by Estefany Jernigan NP) Anxiety Chronic GERD COVID-19 Essential (primary) hypertension Hyperthyroidism Internal hemorrhoid Mixed hyperlipidemia Seasonal allergic rhinitis Vitamin D deficiency Social History Social History Smoking status: Never smoker Second hand tobacco smoke exposure: Yes Alcohol intake: current Drinks per week: 7 Alcohol use details: a glass of wine at dinner Substance use: never Substance use type: does not use Lack of Transportation: No Lack of Food: Never True Current Housing: I Have Housing Concerned About Future Housing: No Difficulty Paying Gas/Electric Bills: No Difficulty Paying for Meds: No Currently Unemployed: No Education: High School Diploma/GED Difficulty w/ Childcare or Family Care: No Gender identity (if verbalized by the patient): Female Comments At time of signature, agree with nursing past medical, surgical, social and family history. There is no relevant family history pertinent to the presenting complaint Exam Narrative: GENERAL: Well-appearing, well-nourished, and in no acute distress. HEAD: Normocephalic EYES: PERRLA, conjunctivae clear ENT: Nares clear, clear discharge. Mucous membranes moist. TM pearly morris with dull light reflex bilaterally; no tragal tenderness. Oropharynx not erythematous blister noted on the roof of the mouth near the uvula. Tonsils not enlarged and without exudate, no drooling, no hoarseness, no trismus, uvula midline. NECK: Supple. No lymphadenopathy CHEST: Clear to auscultation, breath sounds equal. No wheezing, rhonchi, rales, or stridor. No respiratory distress, speaks in full sentences. HEART: Regular rate and rhythm. No murmur heard. SKIN: Warm, dry, no rash. NEURO: Alert and oriented x3. PSYCH: Normal mood and affect Course Course Emergency Course: Patient is aware of diagnosis, understands and agrees to treatment plan. Anticipatory guidance given. Vaibhav
== END 2023-07-29 15:51 | disposition home or self-care (01) ==
PROVIDERS: Emergency Provider Nurse Practitioner; PCP Family Medicine
DX: J06.9 Acute upper respiratory infection, unspecified (principal); K21.9 Gastro-esophageal reflux disease without esophagitis; I10 Essential (primary) hypertension; E05.90 Thyrotoxicosis, unspecified without thyrotoxic crisis or storm; E78.2 Mixed hyperlipidemia; Z86.16 Personal history of COVID-19
CPT/HCPCS: 87081; 87880; 99213; G0463

== ENCOUNTER 2023-09-22 09:58 | Outpatient (CLI) | payer MEDICARE, BC, SELFPAY ==
[2023-09-22 11:15] LABS: Alanine Aminotransferase 15 U/L (6-35); Albumin Level 3.9 g/dL (3.5-5.1); Alkaline Phosphatase 61 U/L (38-126); Anion Gap 5 mmol/L (4-12); Aspartate Amino Transferase 25 U/L (14-36); Bilirubin,Total 0.7 mg/dL (0.2-1.3); Blood Urea Nitrogen 10 mg/dL (7-17); Carbon Dioxide 28 mmol/L (22-30); Chloride 105 mmol/L (98-107); Estimated Glomerular Filt Rate > 60; Glucose 98 mg/dL (65-110); Potassium 4.1 mmol/L (3.4-5.0); Sodium 138 mmol/L (137-145)
== END 2023-09-22 09:59 | disposition home or self-care (01) ==
PROVIDERS: PCP Family Medicine; Visit Provider Nurse Practitioner Family
DX: E05.90 Thyrotoxicosis, unspecified without thyrotoxic crisis or storm (principal); I10 Essential (primary) hypertension
CPT/HCPCS: 36415; 80053

== ENCOUNTER 2023-10-08 08:48 | Outpatient (CLI) | payer MEDICARE, BC, SELFPAY ==
--- NOTE | 2023-10-08 08:50 | ECHO_ITS ---
Patient Info Name: Yoana White Age: 77 years : 1945 Gender: Female Ht: 60 in Wt: 127 lbs BSA: 1.57 m2 HR: 69 bpm BP: 153 / 88 mmHg Technical Quality: Good Exam Date: 10/08/2023 9:17 AM Exam Location: Echo Lab Patient Status: Outpatient Admit Date: 10/08/2023 Staff Ordering Physician: Keon Alston MD Traveling Missionary: Taz Parks RDCS Attending Provider: Keon Alston MD Referring Physician: Gamaliel HAIRSTON; Exam Type: CA echo doppler color flow Study Info Indications - Aortic valve murmur Complete two-dimensional, color flow and Doppler transthoracic echocardiogram is performed. Summary 1. Complete two-dimensional, color flow and Doppler transthoracic echocardiogram is performed. 2. Left ventricular chamber dimension is normal. 3. Left ventricular systolic function is normal, estimated at 60-65%. 4. The left ventricular diastolic function is abnormal. 5. E/e' 10 is mildly elevated. 6. There is trace mitral valve regurgitation. 7. There is trace tricuspid valve regurgitation. 8. No pulmonary hypertension, estimated pulmonary arterial systolic pressure is 27 mmHg. Left Ventricle E/e' 10 is mildly elevated. Left ventricular chamber dimension is normal. Left ventricular systolic function is normal, estimated at 60-65%. The left ventricular diastolic function is abnormal. Right Ventricle Right ventricular systolic function is normal and with normal TAPSE 1.9 cm. Right ventricular chamber dimension is normal. Left Atria Left atrial chamber dimension is normal. Right Atria Right atrial chamber dimension is normal. Aortic Valve The aortic valve is trileaflet. There is no aortic valve stenosis. There is no aortic valve regurgitation. Pulmonic Valve There is no pulmonic regurgitation. Mitral Valve There is no mitral valve stenosis. There is trace mitral valve regurgitation. Tricuspid Valve There is trace tricuspid valve regurgitation. No pulmonary hypertension, estimated pulmonary arterial systolic pressure is 27 mmHg. Pericardium/Pleural There is no pericardial effusion. Inferior Vena Cava Normal inferior vena cava with >50% collapse upon inspiration consistent with normal right atrial pressure, 5 mmHg. Aorta The aortic root size at the sinus of Valsalva is normal. Left Ventricular Outflow Tract Name Value Normal LVOT 2D LVOT Diameter 1.9 cm LVOT Doppler LVOT Peak Gradient 5 mmHg LVOT Mean Gradient 2 mmHg LVOT VTI 24 cm LVOT VTI/AV VTI Ratio 0.8 LVOT Stroke Volume 65 ml LVOT CO 4.2 l/min LVOT CI 2.7 l/min/m2 Pulmonic Valve Name Value Normal PV Doppler PV Peak Gradient 3 mmHg Mitral Valve Name
== END 2023-10-08 08:49 | disposition home or self-care (01) ==
LOC: ANHCARD 08:49
PROVIDERS: PCP Family Medicine; Visit Provider Family Medicine
DX: I35.8 Other nonrheumatic aortic valve disorders (principal); I51.89 Other ill-defined heart diseases; Z79.899 Other long term (current) drug therapy
CPT/HCPCS: 93306

== ENCOUNTER 2023-12-12 10:10 | Emergency (ER) | payer MEDICARE, BC, SELFPAY ==
--- NOTE | ~2023-12-12 | XR_ITS ---
EXAMINATION: XR chest 2V DATE: 12/12/2023 10:44 INDICATION: Cough and shortness of breath TECHNIQUE: frontal and lateral views of the chest were obtained. COMPARISON: Chest radiograph dated 12/23/2014 FINDINGS: Again seen is mild elevation of left hemidiaphragm. No focal airspace opacities, pulmonary edema, ple ural effusion or pneumothorax. The cardiomediastinal silhouette is normal. Mild thoracic kyphosis wit h moderate spondylosis. IMPRESSION: 1. Unchanged mild elevation the left hemidiaphragm. No acute cardiopulmonary disease. Reviewed, dictated and finalized at location B. IMPRESSION: 1. Unchanged mild elevation the left hemidiaphragm. No acute cardiopulmonary di sease.
[2023-12-12 10:11] VITALS: BP 144/72; PULSE 74; RESP 18; TEMP 37.3; O2SAT 99
--- NOTE | 2023-12-12 10:22 | ED.URI ---
HPI - URI/Sore Throat General Chief Complaint: Upper Respiratory Infection Stated Complaint: Sinus/SOB Time Seen by Provider: 12/12/23 10:23 Source: patient, RN notes reviewed and old records reviewed Mode of arrival: ambulatory Limitations: no limitations History of Present Illness HPI Narrative: 78-year-old female presents to the [facility] with complaints of chest congestion, intermittent shortness of breath, scratchy throat. Symptoms started 8 days ago and progressed 7 days ago. Has been taking Claritin D and NyQuil. Onset (ago): day(s) (7-8) Treatments prior to arrival: cold medicine Related Data Home Medications Medication Instructions Recorded Confirmed cyanocobalamin (vitamin B-12) 1,000 mcg PO DAILY 02/08/19 12/12/23 1,000 mcg tablet (Vitamin B-12) calcium citrate 250 mg PO DAILY 05/27/19 12/12/23 lutein 20 mg tablet 20 mg PO DAILY 09/23/23 12/12/23 Allergies Allergy/AdvReac Type Severity Reaction Status Date / Time amoxicillin Allergy Mild Gastrointestinal Verified 12/12/23 10:12 Upset clavulanic acid Allergy Mild Gastrointestinal Verified 12/12/23 10:12 Upset codeine Allergy Mild Fainting Verified 12/12/23 10:12 erythromycin base Allergy Mild Gastrointestinal Verified 12/12/23 10:12 Upset Ujobqho-NMT-ZtB Reductase Allergy Mild Gastrointestinal Verified 12/12/23 10:12 Inhibitor Upset [Qurnamh-Eyt-Ysl Reductase Inhibitor] Review of Systems Review of Systems: All systems reviewed & are unremarkable except as noted in HPI and below Constitutional: Constitutional: Reports no additional constitutional complaints Eyes: Eyes: Reports no additional eye complaints ENT: Reports as per HPI Cardiovascular: Cardiovascular: Reports no additional cardiovascular complaints, Denies chest pain and Denies dyspnea Respiratory: Respiratory: Reports as per HPI, Reports chest congestion, Reports cough and Denies dyspnea Gastrointestinal: Gastrointestinal: Reports no additional gastrointestinal complaints, Denies abdominal pain, Denies nausea and Denies vomiting Musculoskeletal: Musculoskeletal: Reports no additional musculoskeletal complaints Integumentary/Breasts: Skin/Breast: Reports system reviewed and no additional complaints, except as docu Neurologic: Reports system reviewed and no additional complaints, except as documented Psychiatric: Psychiatric: Reports no additional psychiatric complaints Allergic/Immunologic: Allergic/Immunologic: Reports no additional allergic/immunologic complaints PMFSH Past Medical History Medical History Anxiety Chronic GERD COVID-19 Essential (primary) hypertension Hyperthyroidism Internal hemorrhoid Mixed hyperlipidemia Seasonal allergic rhinitis Vitamin D deficiency Social History Social History Smoking status: Never smoker Second hand tobacco smoke exposure: Yes Alcohol intake: current Drinks per week: 7 Alcohol use details: a glass of wine at dinner Substance use: never Substance use type: does not use Lack of Transportation: No Lack of Food: Never True Current Housing: I Have Housing Concerned About Future Housing: No Difficulty Paying Gas/Electric Bills: No Difficulty Paying for Meds: No Currently Unemployed: No Education: High School Diploma/GED Difficulty w/ Childcare or Family Care: No Gender identity (if verbalized by the patient): Female Comments At the time of my signature, I reviewed and agree with the nursing past medical, surgical, social, and family history. There is no relevant family history pertinent to the patient complaint. Exam Const: General: cooperative, healthy appearing, comfortable, no acute distress, well developed, alert and well nourished Nutritional Appearance: well nourished Orientation/consciousness: patient oriented x3 Limitations: no limitations HENMT: H
== END 2023-12-12 11:06 | disposition home or self-care (01) ==
PROVIDERS: Emergency Provider Nurse Practitioner; PCP Family Medicine
DX: J40 Bronchitis, not specified as acute or chronic (principal); K21.9 Gastro-esophageal reflux disease without esophagitis; I10 Essential (primary) hypertension; E05.90 Thyrotoxicosis, unspecified without thyrotoxic crisis or storm; E78.2 Mixed hyperlipidemia; Z86.16 Personal history of COVID-19
CPT/HCPCS: 71046; 99213; G0463

== ENCOUNTER 2024-01-08 17:44 | Emergency (ER) | payer MEDICARE, BC, SELFPAY ==
[2024-01-08 17:57] VITALS: BP 143/92; PULSE 72; RESP 16; TEMP 36.4; O2SAT 99
--- NOTE | 2024-01-08 18:09 | ED.GENADULT ---
HPI - General Adult General Chief complaint: Upper Respiratory Infection Stated complaint: cough since last visit Time Seen by Provider: 01/08/24 18:10 Source: patient, RN notes reviewed and old records reviewed Mode of arrival: ambulatory Limitations: no limitations History of Present Illness HPI narrative: 78-year-old female returns to the Urgent Care with a continue cough. Was seen on December 11. Was prescribed a Medrol Dosepak as well as doxycycline, patient states it did not help her symptoms at all, continues to cough. Denies chest pain, shortness of breath. Patient medical record states symptoms have been going on 7-8 days prior to being seen. Per medical record has an appointment with her primary care provider coming up. Related Data Home Medications Medication Instructions Recorded Confirmed cyanocobalamin (vitamin B-12) 1,000 mcg PO DAILY 02/08/19 01/08/24 1,000 mcg tablet (Vitamin B-12) calcium citrate 250 mg PO DAILY 05/27/19 01/08/24 lutein 20 mg tablet 20 mg PO DAILY 09/23/23 01/08/24 Allergies Allergy/AdvReac Type Severity Reaction Status Date / Time amoxicillin Allergy Mild Gastrointestinal Verified 01/08/24 17:47 Upset clavulanic acid Allergy Mild Gastrointestinal Verified 01/08/24 17:47 Upset codeine Allergy Mild Fainting Verified 01/08/24 17:47 erythromycin base Allergy Mild Gastrointestinal Verified 01/08/24 17:47 Upset Pnkjdxd-RHM-FfL Reductase Allergy Mild Gastrointestinal Verified 01/08/24 17:47 Inhibitor Upset [Mjudafy-Opl-Snw Reductase Inhibitor] Review of Systems Review of Systems: All systems reviewed & are unremarkable except as noted in HPI and below Constitutional: Constitutional: Reports no additional constitutional complaints Eyes: Eyes: Reports no additional eye complaints ENT: Reports system reviewed and no additional complaints, except as documented Cardiovascular: Cardiovascular: Reports no additional cardiovascular complaints, Denies chest pain and Denies dyspnea Respiratory: Respiratory: Reports as per HPI, Denies chest congestion, Reports cough and Denies dyspnea Gastrointestinal: Gastrointestinal: Reports no additional gastrointestinal complaints, Denies abdominal pain, Denies nausea and Denies vomiting Musculoskeletal: Musculoskeletal: Reports no additional musculoskeletal complaints Integumentary/Breasts: Skin/Breast: Reports system reviewed and no additional complaints, except as docu Neurologic: Reports system reviewed and no additional complaints, except as documented Psychiatric: Psychiatric: Reports no additional psychiatric complaints Allergic/Immunologic: Allergic/Immunologic: Reports no additional allergic/immunologic complaints [facility] Past Medical History Medical History Anxiety Chronic GERD COVID-19 Essential (primary) hypertension Hyperthyroidism Internal hemorrhoid Mixed hyperlipidemia Seasonal allergic rhinitis Vitamin D deficiency Social History Social History Smoking status: Never smoker Second hand tobacco smoke exposure: Yes Alcohol intake: current Drinks per week: 7 Alcohol use details: a glass of wine at dinner Substance use: never Substance use type: does not use Lack of Transportation: No Lack of Food: Never True Current Housing: I Have Housing Concerned About Future Housing: No Difficulty Paying Gas/Electric Bills: No Difficulty Paying for Meds: No Currently Unemployed: No Education: High School Diploma/GED Difficulty w/ Childcare or Family Care: No Gender identity (if verbalized by the patient): Female Comments At the time of my signature, I reviewed and agree with the nursing past medical, surgical, social, and family history. There is no relevant family history pertinent to the patient complaint. Exam Const: General: cooperative, no acute distres
== END 2024-01-08 18:30 | disposition home or self-care (01) ==
PROVIDERS: Emergency Provider Nurse Practitioner; PCP Family Medicine
DX: R05.9 Cough, unspecified (principal); R09.82 Postnasal drip; K21.9 Gastro-esophageal reflux disease without esophagitis; I10 Essential (primary) hypertension; E05.90 Thyrotoxicosis, unspecified without thyrotoxic crisis or storm; E78.2 Mixed hyperlipidemia
CPT/HCPCS: 99211; G0463

== ENCOUNTER 2024-04-26 02:27 | Emergency (ER) | payer MEDICARE, BC, SELFPAY ==
[2024-04-26] VITALS (62 sets, daily range): BP systolic 64–141; BP diastolic 43–103; PULSE 76–98; RESP 9–27; TEMP 36.6–36.7; O2SAT 88–100
--- NOTE | ~2024-04-26 | XR_ITS ---
Right Shoulder Technique: AP and scapular Y views were obtained. Clinical History: Post reduction COMPARISON: 04/26/2024 Findings: No fracture or dislocation is seen. Osseous alignment is anatomic. The glenohumeral and acr omioclavicular joint spaces are preserved. Soft tissues are unremarkable. Impression: Successful reduction of previously noted humeral head dislocation. No fracture or dislocation seen cu rrently. Reviewed, dictated and finalized at location M. MATIC SPINNING LATHE OPERATOR Impression: Successful reduction of previously noted humeral head dislocation. No fracture or dislocation seen currently.
--- NOTE | ~2024-04-26 | XR_ITS ---
Right Shoulder Technique: AP and scapular Y views were obtained. Clinical History: Injury Findings: There is inferior to anteroinferior dislocation of the right humeral head. No fracture evid ent. AC joint intact. Soft tissues are unremarkable. Impression: Inferior to anteroinferior dislocation of the right humeral head. No fracture seen. Reviewed, dictated and finalized at location . DRAW OPERATOR Impression: Inferior to anteroinferior dislocation of the right humeral head. No fracture s een.
--- OUTSIDE RECORDS SUMMARY | 2024-04-26 03:47 | XMS_ITS | Clinical Summary ---
Author Organization [facility] Address [address] [place] [address] Care Team Providers Care Advertising Account Executive Name Role Phone Keon Alston MD Primary Care Provider [phone] Source Comments [facility],non-owned Affiliates and Associated Physician Practices is amultiple site organization consisting of ambulatory clinics and hospital sitesin [place], [place], [place] and [place]. This disclosure is being madepursuant to the Care Everywhere program and may not contain all information available regarding this patient. Last updated 17.[facility] Allergies Active Allergy Reactions Criticality Noted Date Comments Acitretin GI Discomfort 05/31/2020 Codeine Diarrhea Low 03/21/2017 Enalapril Diarrhea High 03/21/2017 Erythromycin Nausea and/or Vomiting High 03/21/2017 Ezetimibe Diarrhea Low 05/31/2020 Hmg-Coa-R Inhibitors Other Medium 03/21/2017 Muscle pain Muscle weakness Levofloxacin Diarrhea High 03/21/2017 Apremilast Other 05/31/2020 respiritory Tramadol Diarrhea Low 03/21/2017 Guselkumab Other 05/31/2020 respiratory Medications * Be aware that medications may not be up to date on this document. Alwaysverify current medications with the patient. Medication Sig Dispensed Refills Start Date End Date Status folic acid (FOLVITE) 1 MG tablet Take 1 (one) tablet by mouth 02/24/2017 Active Cyanocobalamin (B-12) 1000 MCG Take 1 tablet by mouth Active candesartan (ATACAND) 8 MG tablet Take 1 (one) tablet by mouth Active CALCIUM CITRATE-VITAMIN D PO Take 600 mg by mouth Acti ve esomeprazole (NEXIUM) 40 MG capsule Take 1 (one) capsule by mouth once daily 09/06/2020 Active ALPRAZolam (XANAX) 0.25 MG tablet TAKE 1 TABLET BY MOUTH THREE TIMES A DAY NEEDED FOR ANXIETY 09/12/2020 Active vitamin D, ergocalciferol, (DRISDOL) 1.25 MG (21071 UT) capsule JUAN ANTONIO 1 CAPSULE BY MOUTH ONCE MONTHLY FOR LOW VITAMIN D 09/22/2020 Active Multiple Vitamins-Minerals (OCUVITE ADULT 50+ PO) Take by mouth once daily Active betamethasone dipropionate (DIPROSONE) 0.05 % ointmentIndications :Other psoriasis Apply to thick plaques areas daily PRN 60 g 1 02/02/2021 Active triamcinolone acetonide (KENALOG) 0.1 % ointmentIndications :Other psoriasis Apply to affected areas on trunk and extremities up to twice daily. 30 days supply. 80 g 4 05/25/2021 Active estradiol (ESTRACE) 0.1 MG/GM vaginal cream APPLY 1/2 GRAM INTRAVAGINALLY THREE TIMES WEEKLY 04/17/2021 Active ketoconazole (Nizoral) 2 % cream Apply to feet twice daily. 30 days supply. 60 g 11 03/20/2022 Active ALPRAZolam (Xanax) 0.25 MG tablet Take 1 (one) tablet by mouth 3 times daily as needed Active betamethasone valerate (Valisone) 0.1 % cream Apply to affected area 3 times daily as needed 01/01/2023 Active calcipotriene (Dovonex) 0.005 % ointment Apply to affected area two times daily at 4am and 4pm Active ciprofloxacin 0.3% (Ciloxan) 0.3 % ophthalmic solution INSTILL 1-2 DROPS IN LEFT EYE EVERY 2HR UP TO 8 TIMES A DAY FOR 2 DAYS THEN 4 TIMES A DAY FOR 5DAYS. 03/12/2023 Active clotrimazole (Lotrimin AF) 1 % cream APPLY TOPICALLY TO THE AFFECTED AREA 3 TIMES DAILY NEEDED 12/31/2022 Active fluconazole (Diflucan) 150 MG tablet TAKE 1 TABLET BY MOUTH ON DAYS 1, 3, AND 7 12/05/2022 Active Proctofoam HC 1-1 % foam APPLY RECTALLY TWICE A DAY 12/29/2022 Active hydrocortisone, rectal, (Anusol-HC) 2.5 % cream Apply to affected area 2 times daily 01/31/2023 Active fluorometholone (FML) 0.1 % ophthalmic suspension 05/05/2023 Active sertraline (Zoloft) 25 MG tablet Take 1 (one) tablet by mouth once daily 05/15/2022 Active triamcinolone acetonide (Kenalog) 0.025 % lotion APPLY TOPICALLY TWICE A DAY 03/13/2023 Active Active Problems Problem Noted Date Diagnosed Date Other psoriasis 10/11/2020 Pseudophakia 10/06/2017 Immunizations Name Administration Dates Next Due INFLUENZA VACCINE, TRIV. (AF LURIA, FLUZONE TRIVALENT; 6MO+) (IIV3) 01/26/2019 netomat primary monoval ent 12+ yr 0.3mL Purple cap 05/22/2020,04/27/2020 INFLUENZA VACCINE 01/30/2022,,02/13/2020,2017,12/10/2017,01/22/2015 INFLUENZA VACCINE, ADJUVANTE D, TRIV. (FLUAD TRIVALENT; 65Y+) (AIIV3) 01/26/2019 INFLUENZA VACCINE, HIGH-DOSE , QUADR. (FLUZONE HIGH-DOSE QUADRIVALENT; 65Y+), 0.7 ML (HD-IIV4) 02/04/2020 PNEUMOCOCCAL PPSV23 11/17/2012 ZOSTER VACCINE, LIVE 07/19/2011 Family History Medical History Relation Name Comments None Known Brother Arthritis - Rheumatoid Father None Known Maternal Aunt None Known Maternal Grandfather None Known Maternal Grandmother None Known Maternal Uncle None Known Mother None Known Other None Known Paternal Aunt None Known Paternal Grandfather None Known Paternal Grandmother None Known Paternal Uncle Eczema Sister Asthma Neg Hx CVA Neg Hx Cancer - Breast Neg Hx Cancer - Other Neg Hx Cancer - Skin, Melanoma Neg Hx Cancer - Skin, Non Melanoma Neg Hx Hemophilia Neg Hx Psoriasis Neg Hx Relation Name Status Comments Brother Father Maternal Aunt Maternal Grandfather Maternal Grandmother Maternal Uncle Mother Other Paternal Aunt Paternal Grandfather Paternal Grandmother Paternal Uncle Sister Social History Tobacco Use Types Packs/Day Years Used Date Smoking Tobacco: Never Smokeless Tobacco: Never Tobacco Cessation:Counseling Given: Not Answered Alcohol Use Standard Drinks/Week Comments Yes 2 (1 standard drink = 0.6 oz pur e alcohol) 1 glass of wine per day PHQ-2 Answer Date Recorded PHQ2 TOTAL SCORE 0 10/11/2020 Sex and Gender Information Value Date Recorded Sex Assigned at Female 03/20/2022 9:42 PM MEDICAL APPLIANCE MAKER Gender Identity Female 03/20/2022 9:42 PM MEDICAL APPLIANCE MAKER Sexual Orientation Straight 03/20/2022 9: 42 PM MEDICAL APPLIANCE MAKER Last Filed Vital Signs Vital Sign Reading Time Taken Comments Blood Pressure 132/64 10/11/2020 11:07 AM CDT Pulse 63 11/13/2017 8:51 AM CDT Temperature 36.8 ??C (98.3 ??F) 10/11/2020 11:07 AM C DT Respiratory Rate 15 11/13/2017 8:51 AM CDT Oxygen Saturation 98% 11/13/2017 8:51 AM CDT Inhaled Oxygen Concentration - - Weight 59.9 kg (132 lb) 10/11/2020 11:07 AM CDT Height 152.4 cm (5') 10/11/2020 11:07 AM CDT Body Mass Index 25.78 10/11/2020 11:07 AM CDT Plan of Treatment Upcoming Encounters Date Type Department Care Team (Late st Contact Info) Description 05/12/2024 9:30 AM MEDICAL APPLIANCE MAKER Office Visit [facility] - Dermatology [address] [place] [address], [facility] [place] [phone] Prema Manning MD [address] [place] [address] [address] [place] [phone] Health Maintenance Due Date Last Done Comments BONE DENSITY TESTING 1945 MEDICARE AWV ? 12 MONTHS 1945 DTAP/TDAP/TD VACCINES (1 - Tdap) 1964 ZOSTER VACCINE (2 of 3) 09/13/2011 07/19/2011 PNEUMOCOCCAL VACCINE 50+ (2 of 2 - PCV) 11/17/2013 11/17/2012 Respiratory Syncytial Virus (RSV) Vaccine Pt: or over 60 yrs (1 - 1-dose 75+ series) 2020 COVID-19 VACCINE (3 - 2024-25 season) 2023 05/22/2020, 04/27/2020 INFLUENZA VACCINE (#1) 2023 2, 12/08/2020, 02/13/2020, Additional history exists DEPRESSION SCREENING 03/31/2024 HEPATITIS C SCREENING Completed 09/07/2020 HEPATITIS B VACCINE Aged Out No longe r eligible based on patient's age to complete this topic HIB VACCINE Aged Out No longer eligi ble based on patient's age to complete this topic HPV VACCINE Aged Out No longer eligi ble based on patient's age to complete this topic MENINGOCOCCAL (Group B) VACCINE Aged Out No longer eligible based on patient's age to complete this topic MENINGOCOCCAL VACCINE Aged Out No mehran dorita eligible based on patient's age to complete this topic Medical Devices Implanted Type Area Network Management Specialist Device Identifier Shelf Expiration Date Model / Serial / Lot Blade Acrysof Iq Toric Iol Implanted:Qty: 1 on 11/13/2017 by Cesar Roth MD at [facility] Right: Eye 06/28/2021 [id number] / [id number] / Description:5.25 CYL Procedures Procedure Name Priority Date/Time Associated Diagnosis Comments HEPATITIS C AB SCREEN RFLX NAAT QUANT Routine 09/07/2020 12:09 PM CDT Pain in joints from Last 3 Months or Most Recently Relevant to Health Maintenance Results * HEPATITIS C AB SCREEN RFLX NAAT QUANT (09/07/2020 12:09 PM CDT) Hepatitis C Antibody Non-react danielle Non-reac tive 09/07/2020 1:58 PM CDT [facility] Comment:Hepatitis C Antibody screen indicates no serologic evidence of past or current infection with Hepatitis C Virus. Patients with unexplained liver disease who are immunocompromised or suspected of having acute Hepatitis C infection may benefit from Nucleic Acid Test (ADRIANNE) for Hepatitis C Viral RNA to confirm Hepatitis C status. Blood BLOOD SPECIMEN / Unknown Lab Venipuncture / Unknown 09/07/2020 12:09 PM CDT 09/07/2020 1:09 PM CDT Bin Heard MD LAB - CHEMISTRY TROY [facility] [address] [place] [address], [facility] [phone] from Last 3 Months or Most Recently Relevant to Health Maintenance Advance Directives * Full Code (Latest Code Status on File) Date Activated Date Inactivated Comments 11/13/2017 8:47 AM 11/13/2017 10:27 AM * Full Code Date Activated Date Inactivated Comments 11/12/2017 4:12 PM 11/13/2017 8:47 AM Care Teams Advertising Account Executive Relationship Specialty Start Date End Date Keon Alston MD [address] [place] [address] PCP - General Family Medicine 05/07/23
--- OUTSIDE RECORDS SUMMARY | 2024-04-26 03:47 | XMS_ITS | Referral Summary ---
Author Organization [facility] Address [address] [place] [address] Care Team Providers Care Shaker Flatwork Name Role Phone Keon Alston MD Primary Care Provider [phone] Source Comments [facility],non-owned Affiliates and Associated Physician Practices is amultiple site organization consisting of ambulatory clinics and hospital sitesin [place], [place], [place] and [place]. This disclosure is being madepursuant to the Care Everywhere program and may not contain all information available regarding this patient. Last updated 17.[facility] Allergies Active Allergy Reactions Criticality Noted Date [...] Active vitamin D, ergocalciferol, (DRISDOL) 1.25 MG (76145 UT) capsule JUAN ANTONIO 1 CAPSULE BY [...] (AF LURIA, FLUZONE TRIVALENT; 6MO+) (IIV3) 01/26/2019 [employer] primary monoval ent 12+ yr 0.3mL Purple cap 05/22/2020,04/27/2020 INFLUENZA VACCINE 01/30/2022,,02/13/2020,2017,12/10/2017,01/22/2015 INFLUENZA VACCINE, ADJUVANTE D, TRIV. (FLUAD TRIVALENT; 65Y+) (AIIV3) 01/26/2019 INFLUENZA VACCINE, HIGH-DOSE , QUADR. (FLUZONE HIGH-DOSE QUADRIVALENT; 65Y+), 0.7 ML (HD-IIV4) 02/04/2020 PNEUMOCOCCAL PPSV23 11/17/2012 ZOSTER VACCINE, LIVE 07/19/2011 Social History Tobacco Use Types Packs/Day Years [...] Sex Assigned at Female 03/20/2022 9:42 PM TABLE TENDER SLUDGE Gender Identity Female 03/20/2022 9:42 PM TABLE TENDER SLUDGE Sexual Orientation Straight 03/20/2022 9: 42 PM TABLE TENDER SLUDGE Last Filed Vital Signs Vital Sign Reading [...] st Contact Info) Description 05/12/2024 9:30 AM TABLE TENDER SLUDGE Office Visit [facility] - Dermatology [address] [place] [address], [facility] [place] [phone] Prema Manning MD [address] [place] [address] [address] [place] [phone] Medical Devices Implanted Type Area Laborer Orchard Device Identifier Shelf Expiration Date Model / Serial / Lot Blade Acrysof Iq Toric Iol Implanted:Qty: 1 on 11/13/2017 by Cesar Roth MD at [facility] Right: Eye 06/28/2021 [id number] / [id number] / Description:5.25 CYL Procedures Procedure Name Priority Date/Time Associated Diagnosis Comments HEPATITIS C AB SCREEN RFLX NAAT QUANT Routine 09/07/2020 12:09 PM CDT Pain in joints from Last 3 Months or Most Recently Relevant to Health Maintenance Results * HEPATITIS C AB SCREEN RFLX NAAT QUANT (09/07/2020 12:09 PM CDT) Hepatitis C Antibody Non-react danielle Non-reac tive 09/07/2020 1:58 PM CDT [facility] Comment:Hepatitis C Antibody screen indicates [...] Bin Heard MD LAB - CHEMISTRY TROY Pereyra Organization Address City/State/ZIP Co de Phone Number [facility] [address] [place] [address], [facility] [phone] from Last 3 Months or Most Recently Relevant to Health Maintenance Advance Directives * Full Code (Latest Code Status on File) Date Activated Date Inactivated Comments 11/13/2017 8:47 AM 11/13/2017 10:27 AM * Full Code Date Activated Date Inactivated Comments 11/12/2017 4:12 PM 11/13/2017 8:47 AM Care Teams Shaker Flatwork Relationship Specialty Start Date End Date Keon Alston MD [address] [place] [phone] PCP - General Family Medicine 05/07/23
--- OUTSIDE RECORDS SUMMARY | 2024-04-26 03:48 | XMS_ITS | Clinical Summary ---
Author Organization [facility] Address [address] [place] [id number] Care Team Providers Care Body Maker Name Role Phone Graeme Patricia MD Unavailable [phone] Ramos Chapa MD Unavailable [phone] Keon Alston MD Primary Care Provider [phone] Allergies Active Allergy Reactions Criticality Noted Date Comments Codeine Diarrhea,Syncope High 03/21/2017 Erythromycin Nausea And Vomiting High 03/21/2017 Ezetimibe Diarrhea Low Levofloxacin Diarrhea High 03/21/2017 Spqixfe-Oxj-Ouq Reductase Inhibitors Muscle pain Medium 04/20/2018 Muscle weakness Tramadol Diarrhea Low 03/21/2017 Medications ALPRAZolam (XANAX) 0.25 mg tablet Take 0.25 mg by mouth 3 (three) times a day as needed. 02/24/2018 Active candesartan (ATACAND) 8 mg tablet Take 8 mg by mouth nightly. 02/22/[address] (NexIUM) 40 mg capsule Take 40 mg by mouth 2 (two) times a day. 02/23/2018 Active estradiol (ESTRACE) 0.01 % (0.1 mg/gram) vaginal cream Insert 1 g into the vagina daily as needed. Active folic acid (FOLVITE) 1 mg tablet Take 1 mg by mouth every morning. 02/24/2018 Active FLUZONE HIGH-DOSE 2018-19, PF, 180 mcg/0.5 mL syringe 01/12/2018 Active calcium carbonate-vitam in D3 (CALTRATE 600 + D) 1500 mg (600 mg elemental) -400 units per tablet Take 1 tablet by mouth every morning. Active cyanocobalamin (Vitamin B-12) 1,000 mcg tabletIndicatio ns:Prevention of Vitamin B12 Deficiency Take 1,000 mcg by mouth every morning. Active clobetasol (TEMOVATE) 0.05 % cream 2 (two) times a day. 04/03/2018 Active oxyCODONE (ROXICODONE) 5 mg immediate release tabletIndicatio ns:Pain Take 1 tablet (5 mg total) by mouth every 4 (four) hours as needed for pain. 8 tablet 04/20/2018 Active docusate sodium (COLACE) 100 mg capsuleIndicati ons:constipatio n Take 1 capsule (100 mg total) by mouth 2 (two) times a day. 20 capsule 04/20/2018 Active Active Problems Problem Noted Date Diagnosed Date Abnormal mammogram 03/16/2018 Arthralgia of shoulder 10/13/2013 Surgical History Surgery Date Site/Laterality Comments PARATHYROID GLAND SURGERY FOOT SURGERY 03/31/1997 - 03/30/1998 CATARACT EXTRACTION 03/31/2017 - 03/30/2018 Bilateral DILATION AND CURETTAGE OF UTERUS BREAST BIOPSY 03/18/2018 Left Medical History Medical History Date Comments Hypertension Psoriasis Arthritis PONV (postoperative nausea and vomiting) Family History Medical History Relation Name Comments Arthritis Brother Family history of arthritis - (Added by TW Conv) Arthritis Father Family history of arthritis - (Added by TW Conv) Gout Father Family history of gout - (Added by TW Conv) Hypertension Mother Family history of hypertension - (Added by TW Conv) glioblastoma Mother glioblastoma Arthritis Sister 1 Family history of arthritis - (Added by TW Conv) Breast cancer Sister 2 Family history of malignant neoplasm - (Added by TW Conv) Relation Name Status Comments Brother Father Mother Sister 1 Sister 2 Social History Tobacco Use Types Packs/Day Years Used Date Smoking Tobacco: Never Smokeless Tobacco: Never Alcohol Use Standard Drinks/Week Comments Yes 7 (1 standard drink = 0.6 oz pur e alcohol) Comments No Sex and Gender Information Value Date Recorded Sex Assigned at Not on file Legal Sex Female 5:05 AM STRATEGIC PLANNING CONSULTANT Gender Identity Female 02/06/2024 10:36 AM STRATEGIC PLANNING CONSULTANT Sexual Orientation Not on file Obstetrics History Para Term AB IAB SAB Ectopic Multiple Livin g Live Births 0 0 0 0 0 0 0 0 0 0 0 Last Filed Vital Signs Vital Sign Reading Time Taken Comments Blood Pressure 116/90 04/20/2018 11:40 AM STRATEGIC PLANNING CONSULTANT Pulse 67 04/20/2018 11:40 AM STRATEGIC PLANNING CONSULTANT Temperature 36.6 ??C (97.9 ??F) 04/20/2018 11:[address] Respiratory Rate 14 04/20/2018 11:10 AM STRATEGIC PLANNING CONSULTANT Oxygen Saturation 99% 04/20/2018 11:40 AM STRATEGIC PLANNING CONSULTANT Inhaled Oxygen Concentration - - Weight 61.2 kg (135 lb) 05/01/2018 12:39 PM STRATEGIC PLANNING CONSULTANT Height 154.9 cm (5' 1 ) 05/01/2018 12:39 PM STRATEGIC PLANNING CONSULTANT Body Mass Index 25.51 05/01/2018 12:39 PM STRATEGIC PLANNING CONSULTANT Plan of Treatment Health Maintenance Due Date Last Done Comments Depression Screening 1945 Fall Risk Assessment 1945 Hepatitis C Screening 1945 Osteoporosis Screening-Bone Density Scan 1945 DTaP/Tdap/Td Vaccine (1 - Tdap) 1956 Hepatitis B Screening 12/02/1963 Well Visit 65+ 2010 Zoster Vaccine (2 of 3) 09/13/2011 07/19/2011 Pneumococcal vaccine 65+ (2 of 2 - PCV) 11/17/2013 11/17/2012 Influenza Vaccine (#1) 2023 2, 12/08/2020, 02/13/2020, Additional history exists Breast Cancer Screening-Mammogram Discontinued 07/07/2023, 07/04/2022, 06/29/2021, Additional history exists Procedures Procedure Name Priority Date/Time Associated Diagnosis Comments SCREENING MAMMOGRAM BILATERAL W JOSE Schedule Routine, Read Routine (OP Routine) 07/07/2023 1:08 PM CDT Screening mammogram, encounter for from Last 3 Months or Most Recently Relevant to Health Maintenance Results * Screening Mammogram Bilateral W Jose (07/07/2023 1:08 PM CDT) Anatomical Region Laterality Modality Breast Bilateral Mammography Impressions 07/07/2023 2:10 PM CDT BI-RADS?? ATLAS category (overall): 2 - Benign There is no mammographic evidence of malignancy. A 1 year screening mammogram is recommended. The patient has been or will be contacted. We recommend annual screening mammography for women at average risk of breast cancer beginning at age 40, based on guidelines of the [employer] (ACR Practice Parameter for the Performance of Screening and Diagnostic Mammography) and [employer]. For women with and elevated risk of breast cancer, please refer to the ACR Practice Parameter for specific screening recommendations. The patient will be entered into a reminder system with a target due date of 1 year for her next screening exam. Narrative 07/07/2023 2:10 PM CDT Screening Mammogram Bilateral W Jose: 07/07/23 The study was acquired using full field digital technology and interpreted from soft copy. 2D digital mammographic views, as well as 3D digital tomosynthesis were performed in the CC and MLO projections. CLINICAL: ??Screening mammogram, encounter for. ??No relevant medical history has been documented for this patient. ??History of breast cancer in Sister. COMPARISONS: 07/04/2022 Screening Mammogram Bilateral W Jose 06/29/2021 Screening Mammogram Bilateral W Jose 05/23/2020 Screening Mammogram Bilateral W Jose 05/03/2019 Screening Mammogram Bilateral W Jose 04/20/2018 Mammo Guided Localization Breast Left 03/18/2018 Mammo Post Clip Placement Left 03/18/2018 Stereotactic Breast Biopsy Left 03/13/2018 US Breast Left Limited 03/13/2018 Diagnostic Mammogram Left W Jose BREAST TISSUE: The breasts are heterogeneously dense, which may obscure small masses. FINDINGS: There are benign calcifications in both breasts. There are postoperative findings in the left breast. ?? There is no new suspicious finding in either breast on mammogram. ?? us Self Screening Mammogram IMG MAMMO PROCEDURES Fi nal Result from Last 3 Months or Most Recently Relevant to Health Maintenance [facility] Member Subscriber Plan / Payer (Ef fective 2015-Present) Name:Yoana White Relation to Subscriber:Self Name:JajaYoana Doc Payer ID:[id number] (NAIC) Group ID:[id number] Type:[employer] Address: [id number] MED[address]ARE [facility] [employer] [facility] [employer] Care Teams Body Maker Relationship Specialty Start Date End Date Keon Alston MD [address] [facility] [address] [place] [address] PCP - General Family Practice 04/07/23 Graeme Patricia MD [address] [place] [address] Internal Medicine 05/18/20 Ramos Chapa MD [address] [place] [address] Referring Physician Obstetrics and Gynecology 07/04/22
--- OUTSIDE RECORDS SUMMARY | 2024-04-26 03:48 | XMS_ITS | Encounter Summary ---
Author Organization [facility] Address [address] [place] [address] Care Team Providers Care Shipyard Laborer Name Role Phone Juvencio Ortiz Sherwin CRESPO Primary Care Provider Keon Alston MD Primary Care Provider [phone] Encounter Details Date Type Department Care Team (Late Contact Info) Description 01/04/2019 Telephone [facility] [address] [place] [address] Cesar Roth MD [address] [facility] DEPT [place] [address] Social History Tobacco Use Types Packs/Day Years Used Date Smoking Tobacco: Never Smokeless Tobacco: Never Alcohol Use Standard Drinks/Week Comments Yes 0 (1 standard drink = 0.6 oz pur e alcohol) 1 glass of wine per week Sex and Gender Information Value Date Recorded Sex Assigned at Female 03/20/2022 9:42 PM SMALL ANIMAL VETERINARIAN Gender Identity Female 03/20/2022 9:42 PM SMALL ANIMAL VETERINARIAN Sexual Orientation Straight 03/20/2022 9: 42 PM SMALL ANIMAL VETERINARIAN documented as of this encounter Miscellaneous Notes * Telephone Encounter - Loretta Juárez - 01/04/2019 9:09 AM CDT Pt only documented in this encounter Plan of Treatment Upcoming Encounters Date Type Department Care Team (Late Contact Info) Description 05/12/2024 9:30 AM SMALL ANIMAL VETERINARIAN Office Visit [facility] - Dermatology [address] [facility] [place] [address] Prema Manning MD [address] [facility] [address] [place] [address] documented as of this encounter Visit Diagnoses Not on filedocumented in this encounter Care Teams Shipyard Laborer Relationship Specialty Start Date End Date Juvencio Ortiz DO [address] [place], [place] [id number] PCP - General 01/04/19 05/06/23 Keon Alston MD [address] [place] [phone] PCP - General Family Medicine 05/07/23 documented as of this encounter
--- OUTSIDE RECORDS SUMMARY | 2024-04-26 03:48 | XMS_ITS | Data Portability ---
Author Organization [employer], Main Office Address [address] [place] [address] Care Team Providers Care Cnc Mill Programmer Name Role Phone TITUS BEGUM Primary Care Provider TITUS BEGUM Referring Provider [phone] Assessment Encounter Date Assessment Date Assessment LastModified by Organization Details LastModified Time 03/03/2024 03/03/2024 78-year-old female presents for evaluation of her right hip. She has a history of longstanding trochanteric bursitis and had an injection several years ago which did help. She reports a fall in July onto her right side and she has been having pain since then. It has been getting worse over the past couple of months. Pain is located over the lateral hip radiating down to the mid thigh. She has tried icing and heating without significant improvement. Review of systems per patient questionnaire Physical exam: Nonantalgic gait. She has tenderness palpation of the greater trochanter along the ITB band. No tenderness in the groin and posterior buttocks. No pain with log roll. Flexion 120, 20 internal rotation, 40 of external rotation without pain. Negative Stinchfield. Good hip flexion, abduction, adduction strength. X-rays of the hip and pelvis were reviewed, demonstrating no acute bony abnormality, mild degenerative changes with some joint space narrowing For her trochanteric bursitis, we will continue conservative management. We will send her to physical therapy and have her use Voltaren. She can not take oral NSAIDs because of a history of GERD. We discussed that majority of patients do get improvement with this treatment, but if she has persistent symptoms after the course treatment, the next step would be to consider a cortisone injection into the lateral hip. She is in agreement with the plan. Follow-up as needed. [email or web address] Not available 03/03/2024 14:59:29 Plan of Treatment Reminders Order Date Submit Date Provider Last Modified By Organization Details Last Modified Time Details Appointments None recorded. Lab None recorded. Referral physical therapist referral - Please contact pt for apt of R hip. thanks 2023 024 [facility], [address], [place], [address], 4 10:12:27 Procedures injection/a spiration joint/bursa (PROC) - in office procedure, administere d by provider 2022 023 [email or web address] 3 In-Office Order, Internal Use Only DO Not Attach Compendium DO Not Attach Compendium, Do Not Delete/merge, [id number] 3 12:27:45 Surgeries None recorded. Imaging XR, hip + pelvis, unilateral 2023 024 [email or web address] [facility] [place], [address], [place], [address], 4 16:26:49 Medication Orders Kenalog 10 mg/mL suspension for injection 2022 023 [email or web address] [facility] [id number], [address], 4 16:29:48 ropivacaine (PF) 5 mg/mL (0.5 %) injection solution 2022 023 [email or web address] [facility] [id number], [address], 4 16:29:45 Patient TargetsNo targets recorded. Patient InstructionsNo instructions recorded. Reason for Referral Physical Therapist Referral for Pain in right hip joint R hip Please contact pt for apt of R hip. thanks Referring Physician: Ashwin Gonzalez, Orthopedic Surgery, Encounter Date: 03/03/2024 Results Created Date Observation Date Name Description Value Unit Range Abnormal Flag Note LastModifiedBy Organization Detail LastModifiedTime 08/04/19 22 08/06/2021 XR, shoul chuyita, 2 or more view No observ ation record ed. [id number] [facility] [place] [address], [place], [address], 05/29/2022 16:12:55 12/05/19 22 XR, shoul chuyita No observ ation record ed. [id number] [facility] [place] [address], [place], [address], 05/29/2022 16:12:55 03/03/20 24 XR, hip + pelvi s, unila teral No observ ation record ed. [email or web address] [facility] [place] [address], [place], [address], 03/03/2024 14:02:50 Result Notes None recorded. Problems Name Problem SNOMED Code Status Onset Date Resolution Date Notes Provider Name and Address Organization Details Recorded Time Disorder of trunk 321456454 Active Not Available [facility] 3 16:11:56 Pain of left shoulder joint 1640857508075 9109 Active 2021 Not Available [facility] 3 16:11:56 Pain of right shoulder joint 8585482958035 9100 Active 2021 Not Available [facility] 3 16:11:56 Enthesopat hy of hip region 11057436 Active Not Available [facility] 3 16:11:56 Full thickness rotator cuff tear 961375608 Active 2022 Himanshu Moraes MD [address] [facility], [facility] [address], [place], [address] , [employer] 3 13:05:01 Pain in right hip joint 4160339857348 02 Active 2023 ROSALINA Bird, [employer] 4 14:02:58 Problem Notes None recorded. Procedures Surgical History Date Name Laterality Status Provider Name and Address Organization Details Recorded Time Cataract Surgery completed Not Available [facility] 05/29/2022 16:11:09 parathyroidectomy completed Not Available [facility] 05/29/2022 16:11:09 Imaging Results Imaging Date Name Status LastModified by Organiz ation Details LastModified Time 08/06/2021 XR, shoulder, 2 or more view completed [id number] [facility] [place] [address] [facility] [address], [place], [address], 05/29/2022 16:12:55 12/04/2021 XR, shoulder completed [id number] [facility] [place] [address], [place], [address], 05/29/2022 16:12:55 03/03/2024 XR, hip + pelvis, unilateral completed [email or web address] [facility] [place] [address] [facility] [address], [place], [address], 03/03/2024 14:02:50 Procedure Notes None recorded. Medical Equipment None Reported. Allergies Allergen ID Allergen Name Allergen Category Reaction Reaction Severity Criticality Documentation Date Start Date Code Code System Note Provider Name and Address Organization Details Recorded Time 96488 erythromy honey medicatio n Not available Not available Not available 05/29/2022 4053 RxNorm Not Available [facility] 3 16:12:53 21796 codeine medicatio n Not available Not available Not available 05/29/2022 2670 RxNorm Not Available [facility] 3 16:12:53 Medications Name Sig Start Date Stop Date Status Note LastModified by Organization Details LastModified Time doxycycline hyclate 100 mg capsule TAKE 1 CAPSULE BY MOUTH TWICE A DAY 03/03 completed Not Available Not Available Not Available prednisone 20 mg tablet TAKE 2 TABLETS BY MOUTH EVERY DAY 03/03 completed Not Available Not Available Not Available clobetasol 0.05 % topical cream 06/29 completed Not Available Not Available Not Available triamcinolo ne acetonide 0.025 % lotion APPLY TOPICALLY TWICE A DAY 03/03 completed Not Available Not Available Not Available doxycycline monohydrate 100 mg tablet TAKE 1 TABLET BY MOUTH TWICE A DAY 03/03 completed Not Available Not Available Not Available Nexium 20 mg capsule,del ayed release Take 1 capsule every day by oral route. active Not Available Not Available No t Available terbinafine HCl 250 mg tablet 06/29 completed Not Available Not Available Not Available alprazolam 0.25 mg tablet TAKE 1 TABLET BY MOUTH THREE TIMES A DAY NEEDED FOR ANXIETY 03/02 completed Not Available Not Available Not Available ciprofloxac in 0.3 % eye drops INSTILL 1-2 DROPS IN LEFT EYE EVERY 2HR UP TO 8 TIMES A DAY FOR 2 DAYS THEN 4 TIMES A DAY FOR 5DAYS. 03/03 completed Not Available Not Available Not Available Kenalog 10 mg/mL suspension for injection IN OFFICE 03/02 completed [facility]: 0003- 0494- 20 Not Available Not Available Not Available benzonatate 100 mg capsule TAKE 1 CAPSULE BY MOUTH THREE TIMES A DAY NEEDED FOR COUGH 03/03 completed Not Available Not Available Not Available esomeprazol e magnesium 40 mg capsule,del ayed release 03/02 completed Not Available Not Available Not Available triamcinolo ne acetonide 0.1 % topical ointment APPLY TO AFFECTED AREAS ON TRUNK AND EXTREMITI ES UP TO TWICE DAILY. 03/02 completed Not Available Not Available Not Available fluorometho lone 0.1 % eye drops,suspe nsion INSTILL ONE DROP IN LEFT EYE THREE TIMES A DAY FOR 1 WEEK-- SHAKE WELL BEFORE USE 03/03 completed Not Available Not Available Not Available sertraline 25 mg tablet TAKE 1 TABLET BY MOUTH EVERY DAY 03/02 completed Not Available Not Available Not Available lidocaine HCl 2 % mucosal solution GARGLE AND SPIT 5 ML BY MOUTH TO AFFECTED MUCOSAL AREA FOUR TIMES DAILY NEEDED FOR PAIN 03/03 completed Not Available Not Available Not Available folic acid 1 mg tablet TAKE 1 TABLET BY MOUTH EVERY DAY 03/02 completed Not Available Not Available Not Available hydrocortis one 2.5 % topical cream 06/29 completed Not Available Not Available Not Available ergocalcife rol (vitamin D2) 1,250 mcg (50,000 unit) capsule TAKE ONE CAPSULE BY MOUTH MONTHLY FOR LOW VITAMIN D 03/02 completed Not Available Not Available Not Available clobetasol 0.05 % topical ointment RUB IN WELL TO INVOLVED AREAS OF BODY TWICE DAILY UNTIL CLEAR DIRECTED 11/14 completed Not Available Not Available Not Available estradiol 0.01% (0.1 mg/gram) vaginal cream APPLY 1/2 GRAM INTRAVAGI ROSALIND THREE TIMES WEEKLY 03/02 completed Not Available Not Available Not Available scopolamine 1 mg over 3 days transdermal patch PLEASE SEE ATTACHED FOR DETAILED DIRECTION S 12/04 completed Not Available Not Available Not Available methylpredn isolone 4 mg tablets in a dose pack TAKE 6 TABLETS ON DAY 1 DIRECTED ON PACKAGE AND DECREASE BY 1 TAB EACH DAY FOR A TOTAL OF 6 DAYS 03/03 completed Not Available Not Available Not Available ketoconazol e 2 % topical cream APPLY TO FEET TWICE DAILY 03/02 completed Not Available Not Available Not Available betamethaso ne dipropionat e 0.05 % topical ointment APPLY TO THICK PLAQUE AREAS DAILY NEEDED 03/02 completed Not Available Not Available Not Available sertraline 50 mg tablet TAKE 1 TABLET BY MOUTH EVERY DAY 03/02 completed Not Available Not Available Not Available candesartan 8 mg tablet 03/02 completed Not Available Not Available Not Available ipratropium bromide 21 mcg (0.03 %) nasal spray INSTILL 2 SPRAY INTO EACH NOSTRIL THREE TIMES A DAY NEEDED FOR NASAL DRAINAGE 03/03 completed Not Available Not Available Not Available tobramycin 0.3 %-dexametha sone 0.1 % eye drops,suspe nsion INSTILL 1 DROP INTO LEFT EYE FOUR TIMES A DAY DIRECTED RUB EXCESS DROP ON LASHES. 12/04 completed Not Available Not Available Not Available calcipotrie ne 0.005 % topical ointment APPLY TO AFFECTED AREA TWICE A DAY 03/02 completed Not Available Not Available Not Available oxycodone 5 mg tablet 06/29 completed Not Available Not Available Not Available Premarin 0.625 mg/gram vaginal cream APPLY 1/2 GRAM INTO VAGINA THREE TIMES A WEEK 03/03 completed Not Available Not Available Not Available nitrofurant oin monohydrate /macrocryst als 100 mg capsule TAKE ONE CAPSULE EVERY 12HR FOR SEVEN DAYS, MUST TAKE WITH FOOD/A MEAL 11/14 completed Not Available Not Available Not Available folic acid active Not Available Not Av ailable Not Available lidocaine (PF) 10 mg/mL (1 %) injection solution In office injection administe red by the provider 12/04 completed [facility]: 0409- 4276- 17 Not Available Not Available Not Available ropivacaine (PF) 5 mg/mL (0.5 %) injection solution IN OFFICE 03/02 completed [facility] 11037 -064- 01 Not Available Not Available Not Available Tremfya 100 mg/mL subcutaneou s auto-inject or INJECT 100MG UNDER THE SKIN AT WEEK 0, WEEK 4, AND EVERY 8 WEEKS THEREAFTE R 11/14 completed Not Available Not Available Not Available Paxlovid 300 mg (150 mg x 2)-100 mg tablets in a dose pack TAKE TWO TABLETS OF NIRMATREL VIR WITH 1 TABLET OF RITONAVIR BY MOUTH TWICE DAILY FOR 5 DAYS 12/04 completed Not Available Not Available Not Available Vitals Date Recorded Body mass index (BMI) Body height Body weight Provider Name and Address Organization Details Last Updated DateTime 08/03/2021 24.8 kg/m2 152.4 cm 92354.23 g Not Available [employer] 05/29/2022 16:11:13 Date Recorded Body mass index (BMI) Body height Body weight Provider Name and Address Organization Details Last Updated DateTime 12/04/2021 25.4 kg/m2 152.4 cm 25986.01 g Not Available [employer] 05/29/2022 16:11:13 Date Recorded Body height Provider Name an d Address Organization Details Last Updated DateTime 03/19/2022 152.4 cm Not Available [employer] 16:11:13 Date Recorded Body height Body mass index (BMI) Body weight Provider Name and Address Organization Details Last Updated DateTime 06/18/2022 152.4 cm 24.2 kg/m2 53217.45 g ROSALINA Flowers [facility] [place] [employer] [facility] 06/18/2022 11:29:49 Date Recorded Body height Body mass index (BMI) Body weight Provider Name and Address Organization Details Last Updated DateTime 03/03/2024 152.4 cm 23.8 kg/m2 45603.27 g Mary Raquel [facility] [employer] [facility] 03/03/2024 13:59:23 Social History Question Answer Notes LastModified by Organizat ion Details LastModified Time Tobacco Smoking Status Never Smoker Miranda Holman kevin, [facility] [employer] [facility] 06/18/2022 11:29:10 What Is Your Level Of Alcohol Consumption? Occasional [id number] Information not available 05/29/2022 What Was The Date Of Your Most Recent Tobacco Screening? 03/03/2024 [email or web address] Information not available 03/03/2024 Sex: Unknown Functional Status None recorded. Mental Status None recorded. Family History Relationship Description Onset Age of this Age Resolved Age Notes LastModified by Organization Details LastModified Time Mother Family history of malignant neoplasm [email or web address] Not available 03/03 13:47:40 Sister Family history of malignant neoplasm [email or web address] Not available 03/03 13:47:40 Unspecified Relation Hypertensive disorder [id number] Not available 05/29/2022 16:11:09 Medical History Condition Response BLINDNESS N KIDNEY STONES N CARPAL TUNNEL SYNDROME N MRSA N LUNG DISEASE/DISORDER N HISTORY OF DRUG ABUSE N RADIATION / CHEMOTHERAPY N COPD N SPORTS INJURY N ANKLE PAIN N BLOOD DISEASES N SCHIZOPHRENIA N SHINGLES N SHOULDER PAIN N BOWEL PROBLEMS N DEPRESSION (INCLUDING POST ) N STROKE/TIA N ULCERS N KNEE PAIN N BENIGN PROSTATIC HYPERPLASIA N OBESITY N GERD/NAUSEA N ANEURYSM N URINARY/BLADDER/KIDNEY PROBLEMS N CORONARY ARTERY DISEASE (CAD) N ADDICTION CONCERNS N USE OF BLOOD THINNERS N SKIN PROBLEMS Y EMPHYSEMA N MUSCLE,JOINT OR BONE PROBLEMS N DVT N STOMACH ULCERS N BLOOD CLOTS N USE OF NSAIDS N CONCUSSION OR SPINAL TRAUMA N NEUROPATHY N AIDS/HIV N FRACTURES N HYPERTENSION Y ELBOW PAIN N TOURETTE'S N Metal allergy N ANXIETY DISORDER N BLOOD TRANSFUSION N ANEMIA/BLOOD DISORDER N BIPOLAR DISORDER N BRONCHITIS N OSTEOARTHRITIS N TUBERCULOSIS N FOOT PROBLEM N HEART VALVE DISORDERS N ALLERGIES/HAYFEVER N SOFT TISSUE INJURY N INFECTIOUS DISEASE N HEART ARRHYTHMIA N INSOMNIA N HIGH CHOLESTEROL / HYPERLIPIDEMIA N RHEUMATOID ARTHRITIS N EDEMA N CHRONIC PAIN SYNDROME N CAROTID BLOCKAGE N BACK / NECK PROBLEMS N HAVE YOU BEEN HOSPITALIZED OR SEEN IN TH E ER IN THE PAST YEAR ? N BURSITIS N HERNIATED DISC N DIALYSIS N FIBROMYALGIA N OSTEOPOROSIS N ARTHRITIS Y NO SIGNIFICANT PAST MEDICAL HISTORY N PERIPHERAL NEUROPATHY N DIABETES, TYPE N HEARTBURN / REFLUX N HEPATITIS / LIVER DISEASE N GOUT N ALZHEIMER'S DISEASE N SLEEP DISORDER N HERPES N HEADACHES/MIGRAINES N SEIZURES/EPILEPSY N VASCULAR DISEASE N Blood Disorder N HIP PAIN N DIZZINESS N HEAD TRAUMA OR INJURY N HEART DISEASE/HEART PROBLEMS N MULTIPLE SCLEROSIS N CANCER: SPECIFY N CARDIAC ARRHYTHMIA N ANESTHESIA COMPLICATIONS N ATRIAL FIBRILLATION N AUTOIMMUNE DISEASE N Gynecological HistoryNo gynecological history recorded. Obstetrics History GPAL:G 0 P 0 0 0 0 Past Encounters Encounter ID Performer Location Encounter Start Date Encounter Closed Date Diagnosis/Indication Diagnosis SNOMED-CT Code Diagnosis ICD10 Code Diagnosis Note [id number] [facility] [place] [address] [place] [address] 11/14/2020 00:00:00 11/14/2020 14:39:42 [id number] [facility] [place] [address] [place] [address] 08/03/2021 00:00:00 08/03/2021 10:54:27 [id number] [facility] [place] [address] [place] [address] 12/04/2021 00:00:00 12/04/2021 10:09:05 [id number] [facility] [place] [address] [place] [address] 03/19/2022 00:00:00 03/19/2022 13:38:08 [id number] Himanshu Moraes MD [facility] [place] [address] [place] [address] 06/18/2022 11:27:45 06/18/2022 12:37:23 Pain of right shoulder joint 7702230503 9285232 M25.511 Full thick ness rotator cuff tear 442419940 M75.121 discussed the treatment options patient trying to avoid surgery as this is been a chronic issue that just flares from time to time probably has some atrophy of the supraspina tus musculatur e by now as well. We injected subacromia l bursa today 8cc xylocaine 2 cc Kenalog starting standard protocol she will do her home therapy program if it is not helping we will have her go back to work with therapy again [id number] Ashwin Gonzalez MD [facility] [place] [address] [place] [address] 03/03/2024 13:43:28 03/03/2024 14:24:02 Pain in right hip joint 0537468403 67226 M25.551 Health Concerns Section Related Observation LastModified by Organization Detai ls LastModified Time None Recorded Concern Status LastModified by Organization Details LastModified Time None Recorded Advance Directives Directive None Recorded Payers Encounter Date Sequence Insurance Name Policy Number Policy Meyer Covered Member ID Meyer Member ID Guarantor Name 06/18/2022 1 [place]ARE[place] Yoana Roach Christopher [id number] Yoana Roach Ax 06/18/2022 2 [place]) 104 Yoana Roach Christopher [id number] Yoana Doc Ax 03/03/2024 1 [place] Yoana Roach Ax [id number] Yoana Roach Ax 03/03/2024 2 [place] 104 Yoana Roach Christopher [id number] Yoana Roach Christopher Notes Date Note Type Note Provider Name and Address Organization Details Recorded Time 06/18/2022 text/html patient is a 76-year-old lives alone at this point has some right shoulder pain has history of a chronic rotator cuff tear dating back to at least 5 years ago in 2018 has done well with therapy in a couple of times injection of the subacromial bursa comes in today for follow-up had a recent flare up when lifting overhead at the grocery store for heavy box of detergent Himanshu Moraes MD [address] [facility] [facility] [address], [place], [address], [facility] [employer] 06/18/2022 13:05:44 OBGyn Episode No OBEpisode recorded.
--- OUTSIDE RECORDS SUMMARY | 2024-04-26 03:48 | XMS_ITS | Referral Summary ---
Author Organization [facility] Address [address] [place] [address] Care Team Providers Care Cupola Worker Name Role Phone Graeme Patricia MD Unavailable [phone] Ramos Chapa MD Unavailable [phone] Keon Alston MD Primary Care Provider [phone] Allergies Active Allergy Reactions Criticality Noted Date Comments Codeine Diarrhea,Syncope High 03/21/2017 Erythromycin Nausea And Vomiting High 03/21/2017 Ezetimibe Diarrhea Low Levofloxacin Diarrhea High 03/21/2017 Ookzofw-Hfp-Ryz Reductase Inhibitors Muscle pain Medium 04/20/2018 Muscle [...] Abnormal mammogram 03/16/2018 Arthralgia of shoulder 10/13/2013 Social History Tobacco Use Types Packs/Day Years Used Date Smoking Tobacco: Never Smokeless Tobacco: Never Alcohol Use Standard Drinks/Week Comments Yes 7 (1 standard drink = 0.6 oz pur e alcohol) Comments No Sex and Gender Information Value Date Recorded Sex Assigned at Not on file Legal Sex Female 5:05 AM [employer] Gender Identity Female 02/06/2024 10:36 AM [employer] Sexual Orientation Not on file Last Filed Vital Signs Vital Sign Reading Time Taken Comments Blood Pressure 116/90 04/20/2018 11:40 AM [employer] Pulse 67 04/20/2018 11:40 AM [employer] Temperature 36.6 ??C (97.9 ??F) 04/20/2018 11:[address] Respiratory Rate 14 04/20/2018 11:10 AM [employer] Oxygen Saturation 99% 04/20/2018 11:40 AM [employer] Inhaled Oxygen Concentration - - Weight 61.2 kg (135 lb) 05/01/2018 12:39 PM [employer] Height 154.9 cm (5' 1 ) 05/01/2018 12:39 PM [employer] Body Mass Index 25.51 05/01/2018 12:39 PM [employer] Plan of Treatment Not on file Procedures Procedure Name Priority Date/Time Associated Diagnosis [...] age 40, based on guidelines of the [employer] (ACR Practice Parameter for the Performance of Screening and Diagnostic Mammography) and [employer]. For women [...] Recently Relevant to Health Maintenance Insurance MEDICARE [facility] ACCESS CHOICE ACCESS MEDICARE [facility] FEDERAL MEDICARE [facility] Care Teams Cupola Worker Relationship Specialty Start Date End Date Keon Alston MD [address] [address] PCP - General Family Practice 04/07/23 Graeme Patricia MD [address] [facility] [address] [place] [address] Internal Medicine 05/18/20 Ramos Chapa MD [address] [address] Referring Physician Obstetrics and Gynecology 07/04/22
--- OUTSIDE RECORDS SUMMARY | 2024-04-26 03:48 | XMS_ITS | Patient Health Summary ---
Author Organization [facility] Address [address] 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 This disclosure is being madepursuant to the Care Everywhere program and may not contain all information available regarding this patient. Last updated 17.[facility] Allergies * Acitretin(GI Discomfort) * Codeine(Diarrhea) -Low Criticality * Enalapril(Diarrhea) -High Criticality * Erythromycin(Nausea and/or Vomiting) -High Criticality * Ezetimibe(Diarrhea) -Low Criticality * Hmg-Coa-R Inhibitors(Other) -Medium Criticality * Levofloxacin(Diarrhea) -High Criticality * Apremilast(Other) * Tramadol(Diarrhea) -Low Criticality * Guselkumab(Other) Medications * Be aware that medications may not be up to date on this document. Alwaysverify current medications with the patient. * folic acid (FOLVITE) 1 MG tablet(Started 02/24/2017) Take 1 (one) tablet by mouth * Cyanocobalamin (B-12) 1000 MCG Take 1 tablet by mouth * candesartan (ATACAND) 8 MG tablet Take 1 (one) tablet by mouth * CALCIUM CITRATE-VITAMIN D PO Take 600 mg by mouth * esomeprazole (NEXIUM) 40 MG capsule(Started 09/06/2020) Take 1 (one) capsule by mouth once daily * ALPRAZolam (XANAX) 0.25 MG tablet(Started 09/12/2020) TAKE 1 TABLET BY MOUTH THREE TIMES A DAY NEEDED FOR ANXIETY * vitamin D, ergocalciferol, (DRISDOL) 1.25 MG (55271 UT) capsule(Started 09/22/2020) JUAN ANTONIO 1 CAPSULE BY MOUTH ONCE MONTHLY FOR LOW VITAMIN D * Multiple Vitamins-Minerals (OCUVITE ADULT 50+ PO) Take by mouth once daily * betamethasone dipropionate (DIPROSONE) 0.05 % ointment(Started 02/02/2021) Apply to thick plaques areas daily PRN 1 refill by 02/02/2022 * triamcinolone acetonide (KENALOG) 0.1 % ointment(Started 05/25/2021) Apply to affected areas on trunk and extremities up to twice daily. 30 days supply. 4 refills by 05/25/2022 * estradiol (ESTRACE) 0.1 MG/GM vaginal cream(Started 04/17/2021) APPLY 1/2 GRAM INTRAVAGINALLY THREE TIMES WEEKLY * ketoconazole (Nizoral) 2 % cream(Started 03/20/2022) Apply to feet twice daily. 30 days supply. 11 refills by 03/20/2023 * ALPRAZolam (Xanax) 0.25 MG tablet Take 1 (one) tablet by mouth 3 times daily as needed * betamethasone valerate (Valisone) 0.1 % cream(Started 01/01/2023) Apply to affected area 3 times daily as needed * calcipotriene (Dovonex) 0.005 % ointment Apply to affected area two times daily at 4am and 4pm * ciprofloxacin 0.3% (Ciloxan) 0.3 % ophthalmic solution(Started 03/12/2023) INSTILL 1-2 DROPS IN LEFT EYE EVERY 2HR UP TO 8 TIMES A DAY FOR 2 DAYS THEN 4 TIMES A DAY FOR 5DAYS. * clotrimazole (Lotrimin AF) 1 % cream(Started 12/31/2022) APPLY TOPICALLY TO THE AFFECTED AREA 3 TIMES DAILY NEEDED * fluconazole (Diflucan) 150 MG tablet(Started 12/05/2022) TAKE 1 TABLET BY MOUTH ON DAYS 1, 3, AND 7 * Proctofoam HC 1-1 % foam(Started 12/29/2022) APPLY RECTALLY TWICE A DAY * hydrocortisone, rectal, (Anusol-HC) 2.5 % cream(Started 01/31/2023) Apply to affected area 2 times daily * fluorometholone (FML) 0.1 % ophthalmic suspension(Started 05/05/2023) * sertraline (Zoloft) 25 MG tablet(Started 05/15/2022) Take 1 (one) tablet by mouth once daily * triamcinolone acetonide (Kenalog) 0.025 % lotion(Started 03/13/2023) APPLY TOPICALLY TWICE A DAY Active Problems Problem Noted Date Diagnosed Date Other psoriasis 10/11/2020 Pseudophakia 10/06/2017 Immunizations * INFLUENZA VACCINE, TRIV. (AFLURIA, FLUZONE TRIVALENT; 6MO+) (IIV3)(Given 01/26/2019) * Covid Chartio primary monovalent 12+ yr 0.3mL Purple cap(Given 05/22/2020, 04/27/2020) * INFLUENZA VACCINE(Given 01/30/2022, 12/08/2020, 02/13/2020, 01/12/2018, 12/10/2017, 01/22/2015) * INFLUENZA VACCINE, ADJUVANTED, TRIV. (FLUAD TRIVALENT; 65Y+) (AIIV3)(Given 01/26/2019) * INFLUENZA VACCINE, HIGH-DOSE, QUADR. (FLUZONE HIGH-DOSE QUADRIVALENT; 65Y+), 0.7 ML (HD-IIV4)(Given 02/04/2020) * PNEUMOCOCCAL PPSV23(Given 11/17/2012) * ZOSTER VACCINE, LIVE(Given 07/19/2011) Social History Tobacco Use Types Packs/Day Years [...] Sex Assigned at Female 03/20/2022 9:42 PM FLEECER Gender Identity Female 03/20/2022 9:42 PM FLEECER Sexual Orientation Straight 03/20/2022 9: 42 PM FLEECER Last Filed Vital Signs Vital Sign Reading [...] Mass Index 25.78 10/11/2020 11:07 AM CDT Medical Devices Implanted Type Area Liability Claims Representative Device Identifier Shelf Expiration Date Model / Serial / Lot Blade Acrysof Iq Toric Iol Implanted:Qty: 1 on 11/13/2017 by Cesar Roth MD at [facility] Right: Eye 06/28/2021 [id number] / [id number] / Description:5.25 CYL Procedures * IA DESTROY PREMALIG LESION, 1ST LESION(Performed 05/07/2023) Performed for Actinic keratosis * OPH OCT TEST SLU(Performed 04/08/2022) Performed for AMD (age-related macular degeneration), bilateral * IA DESTROY PREMALIG LESION, 1ST LESION(Performed 03/20/2022) Performed for Actinic keratosis * IA PHOTOCHEMOTHERAPY WITH UV-B(Performed 02/21/2021) Performed for Other psoriasis * IA PHOTOCHEMOTHERAPY WITH UV-B(Performed 02/19/2021) Performed for Other psoriasis * IA PHOTOCHEMOTHERAPY WITH UV-B(Performed 02/16/2021) Performed for Other psoriasis * IA PHOTOCHEMOTHERAPY WITH UV-B(Performed 02/14/2021) Performed for Other psoriasis * IA PHOTOCHEMOTHERAPY WITH UV-B(Performed 02/12/2021) Performed for Other psoriasis * IA PHOTOCHEMOTHERAPY WITH UV-B(Performed 02/09/2021) Performed for Other psoriasis * IA PHOTOCHEMOTHERAPY WITH UV-B(Performed 02/07/2021) Performed for Other psoriasis * IA PHOTOCHEMOTHERAPY WITH UV-B(Performed 02/05/2021) Performed for Other psoriasis * IA PHOTOCHEMOTHERAPY WITH UV-B(Performed 02/02/2021) Performed for Other psoriasis * IA PHOTOCHEMOTHERAPY WITH UV-B(Performed 01/31/2021) Performed for Other psoriasis * IA PHOTOCHEMOTHERAPY WITH UV-B(Performed 01/29/2021) Performed for Other psoriasis * IA PHOTOCHEMOTHERAPY WITH UV-B(Performed 01/26/2021) Performed for Other psoriasis * IA PHOTOCHEMOTHERAPY WITH UV-B(Performed 01/24/2021) Performed for Other psoriasis * IA PHOTOCHEMOTHERAPY WITH UV-B(Performed 01/22/2021) Performed for Other psoriasis * IA PHOTOCHEMOTHERAPY WITH UV-B(Performed 01/17/2021) Performed for Other psoriasis * IA PHOTOCHEMOTHERAPY WITH UV-B(Performed 01/12/2021) Performed for Other psoriasis * IA PHOTOCHEMOTHERAPY WITH UV-B(Performed 01/10/2021) Performed for Other psoriasis * IA PHOTOCHEMOTHERAPY WITH UV-B(Performed 01/08/2021) Performed for Other psoriasis * IA PHOTOCHEMOTHERAPY WITH UV-B(Performed 01/05/2021) Performed for Other psoriasis * IA PHOTOCHEMOTHERAPY WITH UV-B(Performed 01/03/2021) Performed for Other psoriasis * IA PHOTOCHEMOTHERAPY WITH UV-B(Performed 01/01/2021) Performed for Other psoriasis * IA PHOTOCHEMOTHERAPY WITH UV-B(Performed 12/29/2020) Performed for Other psoriasis * IA PHOTOCHEMOTHERAPY WITH UV-B(Performed 12/27/2020) Performed for Other psoriasis * IA PHOTOCHEMOTHERAPY WITH UV-B(Performed 12/25/2020) Performed for Other psoriasis * IA PHOTOCHEMOTHERAPY WITH UV-B(Performed 12/22/2020) Performed for Other psoriasis * IA PHOTOCHEMOTHERAPY WITH UV-B(Performed 12/20/2020) Performed for Other psoriasis * IA PHOTOCHEMOTHERAPY WITH UV-B(Performed 12/18/2020) Performed for Other psoriasis * IA PHOTOCHEMOTHERAPY WITH UV-B(Performed 12/15/2020) Performed for Other psoriasis * IA PHOTOCHEMOTHERAPY WITH UV-B(Performed 12/13/2020) Performed for Other psoriasis * IA PHOTOCHEMOTHERAPY WITH UV-B(Performed 12/11/2020) Performed for Other psoriasis * IA PHOTOCHEMOTHERAPY WITH UV-B(Performed 12/08/2020) Performed for Other psoriasis * IA PHOTOCHEMOTHERAPY WITH UV-B(Performed 12/06/2020) Performed for Other psoriasis * IA PHOTOCHEMOTHERAPY WITH UV-B(Performed 2020) Performed for Other psoriasis * IA PHOTOCHEMOTHERAPY WITH UV-B(Performed 11/29/2020) Performed for Other psoriasis * IA PHOTOCHEMOTHERAPY WITH UV-B(Performed 11/27/2020) Performed for Other psoriasis * IA PHOTOCHEMOTHERAPY WITH UV-B(Performed 11/24/2020) Performed for Other psoriasis * IA PHOTOCHEMOTHERAPY WITH UV-B(Performed 11/22/2020) Performed for Other psoriasis * IA PHOTOCHEMOTHERAPY WITH UV-B(Performed 11/20/2020) Performed for Other psoriasis * IA PHOTOCHEMOTHERAPY WITH UV-B(Performed 11/17/2020) Performed for Other psoriasis * IA PHOTOCHEMOTHERAPY WITH UV-B(Performed 11/15/2020) Performed for Other psoriasis * IA PHOTOCHEMOTHERAPY WITH UV-B(Performed 11/13/2020) Performed for Other psoriasis * IA PHOTOCHEMOTHERAPY WITH UV-B(Performed 11/10/2020) Performed for Other psoriasis * SS-B (SJOGREN'S) ANTIBODY(Performed 09/07/2020) Performed for Pseudophakia * SS-A (SJOGREN'S) 52+60 ANTIBODIES(Performed 09/07/2020) Performed for Pseudophakia * RHEUMATOID FACTOR BLOOD QUANTITATIVE(Performed 09/07/2020) Performed for Pain in joints * CYCLIC CITRUL PEPTIDE ANTIBODY IGG/IGA (CCP)(Performed 09/07/2020) Performed for Pain in joints * HEPATITIS C AB SCREEN RFLX NAAT QUANT(Performed 09/07/2020) Performed for Pain in joints * SS-B (SJOGREN'S) ANTIBODY(Performed 09/07/2020) Performed for Pain in joints * OJ BLOOD SCREEN W/REFLEX TITER(Performed 09/07/2020) Performed for Pain in joints * PROTEIN ELECTROPHORESIS URINE RANDOM(Performed 09/07/2020) Performed for Pain in joints * PROTEIN ELECTROPHORESIS BLOOD(Performed 09/07/2020) Performed for Pain in joints * URIC ACID BLOOD(Performed 09/07/2020) Performed for Pain in joints * C-REACTIVE PROTEIN(Performed 09/07/2020) Performed for Pain in joints * ERYTHROCYTE SEDIMENTATION RATE(Performed 09/07/2020) Performed for Pain in joints * COMPREHENSIVE METABOLIC PANEL(Performed 09/07/2020) Performed for Pain in joints * CBC W AUTO DIFFERENTIAL(Performed 09/07/2020) Performed for Pain in joints * HLA TYPING B27(Performed 09/07/2020) Performed for Pain in joints, Major depressive disorder, single episode, moderate * XR SI JOINTS 3VW OR MORE(Performed 09/07/2020) Performed for Arthritis * XR LUMBAR SPINE 4VW OR MORE(Performed 09/07/2020) Performed for Arthritis * EXTRACTION CATARACT WITH INSERTION LENS(Performed 11/13/2017) Performed for Nuclear sclerotic cataract of right eye * FROZEN SECTION(Performed 09/02/1995) Results * IA DESTROY PREMALIG LESION, 1ST LESION (05/07/2023 10:38 AM FLEECER) Narrative Prema Manning MD - 05/07/2023 10:38 AM FLEECER Prema Manning MD ? 05/07/2023 10:39 AM Diagnosis and treatment options discussed. Cryotherapy (Liquid Nitrogen) to 1 lesions for 5-6 seconds each. Number of cycles: 1. Wound care reviewed. Prema Manning MD PROCEDURE/MINOR SURG ICAL ORDERABLES * OCT (04/08/2022 11:55 AM FLEECER) Anatomical Region Laterality Modality Other 04/08/2022 11:5 5 AM FLEECER Christine Shaw OD OPHTHALMOLOGY SERVIC ES ORDERABLES * IA PHOTOCHEMOTHERAPY WITH UV-B (02/21/2021 1:15 PM FLEECER) Narrative Debora Fernandes - 02/21/2021 1:15 PM FLEECER Debora Fernandes ? 02/21/2021 ??1:17 PM Treatment Rx #: 42 Erythema Grade: No Erythema Emollient applied with assistance: Yes Treatment Comments: tolerating tx well Total Body Dose mJ Change: Hold dose at previous level mJ/cm2: 2.000 Time (min): 4:34 Total Body Dose Comments: red cabinet Exposure Face (mJ): Paper bag Goggles/protective glasses: Yes Genitals (mJ): Underwear Extra To Extremities mJ Change: Increased .050 mJ/cm2: 0.850 Time (min): 1:44 Extra to Extremities Comments: long sleeves/shorts/face covered Prema Manning MD PROCEDURE/MINOR SURG ICAL ORDERABLES * IA PHOTOCHEMOTHERAPY WITH UV-B (02/19/2021 11:12 AM FLEECER) Narrative Cherry Red - 02/19/2021 11:12 AM FLEECER Cherry Red ? 02/19/2021 11:29 AM Treatment Rx #: 41 Erythema Grade: No Erythema Emollient applied with assistance: Yes Treatment Comments: red cabinet Total Body Dose mJ Change: Hold dose at previous level mJ/cm2: 2.000 Time (min): 4:34 Total Body Dose Comments: tolerates well Exposure Face (mJ): Mask On Goggles/protective glasses: Yes Genitals (mJ): Underwear Extra To Extremities mJ Change: Increased .050 mJ/cm2: .800 Time (min): 1:38 Extra to Extremities Comments: Tolerating well with improvemet Prema Manning MD PROCEDURE/MINOR SURG ICAL ORDERABLES * IA PHOTOCHEMOTHERAPY WITH UV-B (02/16/2021 3:09 PM FLEECER) Narrative Debora Fernandes - 02/16/2021 3:09 PM FLEECER Debora Fernandes ? 02/16/2021 ??3:16 PM Treatment Rx #: 40 Erythema Grade: No Erythema Emollient applied with assistance: Yes Total Body Dose mJ Change: Hold dose at previous level mJ/cm2: 2.000 Time (min): 4:20 Total Body Dose Comments: RED CABINET Exposure Face (mJ): Paper bag Goggles/protective glasses: Yes Genitals (mJ): Underwear Extra To Extremities mJ Change: Increased .050 mJ/cm2: 0.750 Time (min): 1:29 Extra to Extremities Comments: long sleeves/shorts/face covered Prema Manning MD PROCEDURE/MINOR SURG ICAL ORDERABLES * IA PHOTOCHEMOTHERAPY WITH UV-B (02/14/2021 1:24 PM FLEECER) Narrative Debora Fernandes - 02/14/2021 1:24 PM FLEECER Debora Fernandes ? 02/14/2021 ??1:26 PM Treatment Rx #: 39 Erythema Grade: No Erythema Emollient applied with assistance: Yes Treatment Comments: tolerated last tx well Total Body Dose mJ Change: Hold dose at previous level mJ/cm2: 2.000 Time (min): 4:29 Total Body Dose Comments: red cabinet Exposure Face (mJ): Paper bag Goggles/protective glasses: Yes Genitals (mJ): Underwear Extra To Extremities mJ Change: Increased .050 mJ/cm2: 0.700 Time (min): 1:25 Extra to Extremities Comments: long sleeves/shorts/face covered Prema Manning MD PROCEDURE/MINOR SURG ICAL ORDERABLES * IA PHOTOCHEMOTHERAPY WITH UV-B (02/12/2021 3:22 PM FLEECER) Narrative Debora Fernandes - 02/12/2021 3:22 PM FLEECER Debora Fernandes ? 02/12/2021 ??3:26 PM Treatment Rx #: 38 Erythema Grade: No Erythema Emollient applied with assistance: Yes Treatment Comments: c/o itching to upper chest area over the weekend/no erythema/has some red spots; covered with scarf today; pt will use topicals in this area/will monitor and contact Dr Manning if doesn't resolve Total Body Dose mJ Change: Hold dose at previous level mJ/cm2: 2.000 Time (min): 4:37 Total Body Dose Comments: red cabinet Exposure Face (mJ): Paper bag Goggles/protective glasses: Yes Genitals (mJ): Underwear Extra To Extremities mJ Change: Increased .050 mJ/cm2: 0.650 Time (min): 1:20 Extra to Extremities Comments: long sleeves/shorts/face covered Prema Manning MD PROCEDURE/MINOR SURG ICAL ORDERABLES * IA PHOTOCHEMOTHERAPY WITH UV-B (02/09/2021 11:03 AM FLEECER) Narrative Debora Fernandes - 02/09/2021 11:03 AM FLEECER Debora Fernandes ? 02/09/2021 11:20 AM Treatment Rx #: 37 Erythema Grade: No Erythema Emollient applied with assistance: Yes Treatment Comments: tolerating tx well Total Body Dose mJ Change: Hold dose at previous level mJ/cm2: 2.000 Time (min): 4:38 Total Body Dose Comments: red cabinet Exposure Face (mJ): Paper bag Goggles/protective glasses: Yes Genitals (mJ): Underwear Extra To Extremities mJ Change: Increased .050 mJ/cm2: 0.600 Time (min): 1:13 Extra to Extremities Comments: long sleeves/shorts/face covered Prema Manning MD PROCEDURE/MINOR SURG ICAL ORDERABLES * IA PHOTOCHEMOTHERAPY WITH UV-B (02/07/2021 1:00 PM FLEECER) Narrative Debora Fernandes - 02/07/2021 1:00 PM FLEECER Debora Fernandes ? 02/07/2021 ??1:06 PM Treatment Rx #: 36 Erythema Grade: No Erythema Emollient applied with assistance: Yes Treatment Comments: tolerating tx well Total Body Dose mJ Change: Hold dose at previous level mJ/cm2: 2.000 (max dose per skin type) Time (min): 4:28 Total Body Dose Comments: red cabinet Exposure Face (mJ): Paper bag Goggles/protective glasses: Yes Genitals (mJ): Underwear Extra To Extremities mJ Change: Increased .050 mJ/cm2: 0.550 Time (min): 1:07 Extra to Extremities Comments: long sleeves/shorts/face covered Prema Manning MD PROCEDURE/MINOR SURG ICAL ORDERABLES * IA PHOTOCHEMOTHERAPY WITH UV-B (02/05/2021 11:20 AM FLEECER) Narrative Debora Fernandes - 02/05/2021 11:20 AM FLEECER Debora Fernandes ? 02/05/2021 11:24 AM Treatment Rx #: 35 Erythema Grade: No Erythema Emollient applied with assistance: Yes Treatment Comments: tolerating tx well Total Body Dose mJ Change: Increased .050 mJ/cm2: 2.000 (hold dose here per skin type protocol) Time (min): 4:29 Total Body Dose Comments: red cabinet Exposure Face (mJ): Paper bag Goggles/protective glasses: Yes Genitals (mJ): Underwear Extra To Extremities mJ Change: Increased .050 mJ/cm2: 0.500 Time (min): 1:02 Extra to Extremities Comments: long sleeves/shorts/face covered Prema Manning MD PROCEDURE/MINOR SURG ICAL ORDERABLES * IA PHOTOCHEMOTHERAPY WITH UV-B (02/02/2021 2:18 PM CDT) Narrative Debora Fernandes - 02/02/2021 2:18 PM CDT Debora Fernandes ? 02/02/2021 ??2:21 PM Treatment Rx #: 34 Erythema Grade: No Erythema Emollient applied with assistance: Yes Treatment Comments: tolerating tx well Total Body Dose mJ Change: Increased .050 mJ/cm2: 1.950 Time (min): 4:34 Total Body Dose Comments: red cabinet Exposure Face (mJ): Paper bag Goggles/protective glasses: Yes Genitals (mJ): Underwear Extra To Extremities mJ Change: Increased .050 mJ/cm2: 0.450 Time (min): 0:55 Extra to Extremities Comments: long sleeves/shorts/face covered Prema Manning MD PROCEDURE/MINOR SURG ICAL ORDERABLES * IA PHOTOCHEMOTHERAPY WITH UV-B (01/31/2021 2:04 PM CDT) Narrative Debora Fernandes - 01/31/2021 2:04 PM CDT Debora Fernandes ? 01/31/2021 ??2:06 PM Treatment Rx #: 33 Erythema Grade: No Erythema Emollient applied with assistance: Yes Treatment Comments: tolerating tx well Total Body Dose mJ Change: Increased .050 mJ/cm2: 1.875 Time (min): 4:24 Total Body Dose Comments: red cabinet Exposure Face (mJ): Paper bag Goggles/protective glasses: Yes Genitals (mJ): Underwear Extra To Extremities mJ Change: Increased .050 mJ/cm2: 0.400 Time (min): 0:49 Extra to Extremities Comments: long sleeves/shorts/face covered Prema Manning MD PROCEDURE/MINOR SURG ICAL ORDERABLES * IA PHOTOCHEMOTHERAPY WITH UV-B (01/29/2021 2:05 PM CDT) Narrative Debora Fernandes - 01/29/2021 2:05 PM CDT Debora Fernandes ? 01/29/2021 ??2:10 PM Treatment Rx #: 32 Erythema Grade: No Erythema Emollient applied with assistance: Yes Treatment Comments: tolerated last tx well Total Body Dose mJ Change: Increased .050 mJ/cm2: 1.825 Time (min): 4:04 Total Body Dose Comments: red cabinet Exposure Face (mJ): Paper bag Goggles/protective glasses: Yes Genitals (mJ): Underwear Extra To Extremities mJ Change: Increased .050 mJ/cm2: 0.350 Time (min): 4:04 Extra to Extremities Comments: long sleeves/shorts/face covered Prema Manning MD PROCEDURE/MINOR SURG ICAL ORDERABLES * IA PHOTOCHEMOTHERAPY WITH UV-B (01/26/2021 11:07 AM CDT) Narrative Debora Fernandes - 01/26/2021 11:07 AM CDT Debora Fernandes ? 01/26/2021 11:19 AM Treatment Rx #: 31 Erythema Grade: No Erythema Emollient applied with assistance: Yes Treatment Comments: tolerating tx well Total Body Dose mJ Change: Increased .050 mJ/cm2: 1.775 Time (min): 4:13 Total Body Dose Comments: red cabinet Exposure Face (mJ): Paper bag Goggles/protective glasses: Yes Genitals (mJ): Underwear Extra To Extremities mJ Change: ??(initiate today) mJ/cm2: 0.300 Time (min): 0:37 Extra to Extremities Comments: long sleeve shirt/shorts Prema Manning MD PROCEDURE/MINOR SURG ICAL ORDERABLES * IA PHOTOCHEMOTHERAPY WITH UV-B (01/24/2021 11:51 AM CDT) Narrative Debora Fernandes - 01/24/2021 11:51 AM CDT Debora Fernandes ? 01/24/2021 11:53 AM Treatment Rx #: 30 Erythema Grade: No Erythema Emollient applied with assistance: Yes Treatment Comments: tolerating tx well Total Body Dose mJ Change: Increased .050 mJ/cm2: 1.725 Time (min): 3:53 Total Body Dose Comments: red cabinet Exposure Face (mJ): Paper bag Goggles/protective glasses: Yes Genitals (mJ): Underwear Prema Manning MD PROCEDURE/MINOR SURG ICAL ORDERABLES * IA PHOTOCHEMOTHERAPY WITH UV-B (01/22/2021 12:46 PM CDT) Narrative Debora Fernandes - 01/22/2021 12:46 PM CDT Debora Fernandes ? 01/22/2021 12:51 PM Treatment Rx #: 29 Erythema Grade: No Erythema Emollient applied with assistance: Yes Treatment Comments: tolerating tx well Total Body Dose mJ Change: Increased .050 mJ/cm2: 1.675 Time (min): 3:46 Total Body Dose Comments: red cabinet Exposure Face (mJ): Mask On Goggles/protective glasses: Yes Genitals (mJ): N/A Prema Manning MD PROCEDURE/MINOR SURG ICAL ORDERABLES * IA PHOTOCHEMOTHERAPY WITH UV-B (01/17/2021 12:54 PM CDT) Narrative Debora Fernandes - 01/17/2021 12:54 PM CDT Debora Fernandes ? 01/17/2021 12:56 PM Treatment Rx #: 28 Erythema Grade: No Erythema Emollient applied with assistance: Yes Treatment Comments: tolerated last tx well Total Body Dose mJ Change: Increased .050 mJ/cm2: 1.625 Time (min): 3:42 Total Body Dose Comments: red cabinet Exposure Face (mJ): Paper bag Goggles/protective glasses: Yes Genitals (mJ): Underwear Prema Manning MD PROCEDURE/MINOR SURG ICAL ORDERABLES * IA PHOTOCHEMOTHERAPY WITH UV-B (01/12/2021 1:05 PM CDT) Narrative Debora Fernandes - 01/12/2021 1:05 PM CDT Debora Fernandes ? 01/12/2021 ??1:07 PM Treatment Rx #: 27 Erythema Grade: No Erythema Emollient applied with assistance: Yes Treatment Comments: tolerating tx well Total Body Dose mJ Change: Increased .050 mJ/cm2: 1.575 Time (min): 3:42 Total Body Dose Comments: red cabinet Exposure Face (mJ): Paper bag Goggles/protective glasses: Yes Genitals (mJ): Underwear Prema Manning MD PROCEDURE/MINOR SURG ICAL ORDERABLES * IA PHOTOCHEMOTHERAPY WITH UV-B (01/10/2021 11:09 AM CDT) Narrative Debora Fernandes - 01/10/2021 11:09 AM CDT Debora Fernandes ? 01/10/2021 11:18 AM Treatment Rx #: 26 Erythema Grade: No Erythema Emollient applied with assistance: Yes Treatment Comments: tolerating tx well Total Body Dose mJ Change: Increased .050 mJ/cm2: 1.525 Time (min): 3:43 Total Body Dose Comments: red cabinet Exposure Face (mJ): Paper bag Goggles/protective glasses: Yes Genitals (mJ): Underwear Prema Manning MD PROCEDURE/MINOR SURG ICAL ORDERABLES * IA PHOTOCHEMOTHERAPY WITH UV-B (01/08/2021 12:37 PM CDT) Narrative Debora Fernandes - 01/08/2021 12:37 PM CDT Debora Fernandes ? 01/08/2021 12:43 PM Treatment Rx #: 25 Erythema Grade: No Erythema Emollient applied with assistance: Yes Treatment Comments: tolerating tx well Total Body Dose mJ Change: Increased .050 mJ/cm2: 1.475 Time (min): 3:26 Total Body Dose Comments: red cabinet Exposure Face (mJ): Paper bag Goggles/protective glasses: Yes Genitals (mJ): Underwear Perma Manning MD PROCEDURE/MINOR SURG ICAL ORDERABLES * IA PHOTOCHEMOTHERAPY WITH UV-B (01/05/2021 11:03 AM CDT) Narrative Cherry Red - 01/05/2021 11:03 AM CDT Cherry Red ? 01/05/2021 11:24 AM Treatment Rx #: 24 Erythema Grade: No Erythema Emollient applied with assistance: Yes Treatment Comments: red cabinet Total Body Dose mJ Change: Increased .050 mJ/cm2: 1.425 Time (min): 3:25 Total Body Dose Comments: tolerates well Exposure Face (mJ): Paper bag Goggles/protective glasses: Yes Genitals (mJ): N/A Prema Manning MD PROCEDURE/MINOR SURG ICAL ORDERABLES * IA PHOTOCHEMOTHERAPY WITH UV-B (01/03/2021 11:19 AM CDT) Narrative Debora Fernandes - 01/03/2021 11:19 AM CDT Debora Fernandes ? 01/03/2021 11:21 AM Treatment Rx #: 23 Erythema Grade: No Erythema Emollient applied with assistance: Yes Treatment Comments: tolerating tx well; plaques less scaly Total Body Dose mJ Change: Increased .050 mJ/cm2: 1.375 Time (min): 3:16 Total Body Dose Comments: red cabinet Exposure Face (mJ): Paper bag Goggles/protective glasses: Yes Genitals (mJ): N/A Prema Manning MD PROCEDURE/MINOR SURG ICAL ORDERABLES * IA PHOTOCHEMOTHERAPY WITH UV-B (01/01/2021 12:44 PM CDT) Narrative Debora Fernandes - 01/01/2021 12:44 PM CDT Debora Fernandes ? 01/01/2021 12:52 PM Treatment Rx #: 22 Erythema Grade: No Erythema Emollient applied with assistance: Yes Treatment Comments: tolerated last tx well Total Body Dose mJ Change: Increased .050 mJ/cm2: 1.325 Time (min): 3:06 Total Body Dose Comments: red cabinet Exposure Face (mJ): Paper bag Goggles/protective glasses: Yes Genitals (mJ): N/A Prema Manning MD PROCEDURE/MINOR SURG ICAL ORDERABLES * IA PHOTOCHEMOTHERAPY WITH UV-B (12/29/2020 11:09 AM CDT) Narrative Debora Fernandes - 12/29/2020 11:09 AM CDT Debora Fernandes ? 12/29/2020 11:16 AM Treatment Rx #: 21 Erythema Grade: No Erythema Emollient applied with assistance: Yes Treatment Comments: tolerating tx well Total Body Dose mJ Change: Increased .050 mJ/cm2: 1.275 Time (min): 3:10 Total Body Dose Comments: red cabinet Exposure Face (mJ): Paper bag Goggles/protective glasses: Yes Genitals (mJ): Underwear Prema Manning MD PROCEDURE/MINOR SURG ICAL ORDERABLES * IA PHOTOCHEMOTHERAPY WITH UV-B (12/27/2020 11:06 AM CDT) Narrative Debora Fernandes - 12/27/2020 11:06 AM CDT Debora Fernandes ? 12/27/2020 11:14 AM Treatment Rx #: 20 Erythema Grade: No Erythema Emollient applied with assistance: Yes Treatment Comments: tolerated last tx well Total Body Dose mJ Change: Increased .050 mJ/cm2: 1.225 Time (min): 3:02 Total Body Dose Comments: red cabinet Exposure Face (mJ): Paper bag Goggles/protective glasses: Yes Genitals (mJ): N/A Prema Manning MD PROCEDURE/MINOR SURG ICAL ORDERABLES * IA PHOTOCHEMOTHERAPY WITH UV-B (12/25/2020 11:10 AM CDT) Narrative Debora Fernandes - 12/25/2020 11:10 AM CDT Debora Fernandes ? 12/25/2020 11:18 AM Treatment Rx #: 19 Erythema Grade: No Erythema Emollient applied with assistance: Yes Treatment Comments: tolerating tx well Total Body Dose mJ Change: Increased .050 mJ/cm2: 1.175 Time (min): 2:49 Total Body Dose Comments: red cabinet Exposure Face (mJ): Paper bag Goggles/protective glasses: Yes Genitals (mJ): N/A Prema Manning MD PROCEDURE/MINOR SURG ICAL ORDERABLES * IA PHOTOCHEMOTHERAPY WITH UV-B (12/22/2020 1:26 PM CDT) Narrative Debora Fernandes - 12/22/2020 1:26 PM CDT Debora Fernandes ? 12/22/2020 ??1:30 PM Treatment Rx #: 18 Erythema Grade: No Erythema Emollient applied with assistance: Yes Treatment Comments: tolerating tx well Total Body Dose mJ Change: Increased .050 mJ/cm2: 1.125 Time (min): 2:48 Total Body Dose Comments: red cabinet Exposure Face (mJ): Paper bag Goggles/protective glasses: Yes Genitals (mJ): N/A Prema Manning MD PROCEDURE/MINOR SURG ICAL ORDERABLES * IA PHOTOCHEMOTHERAPY WITH UV-B (12/20/2020 11:59 AM CDT) Narrative Debora Fernandes - 12/20/2020 11:59 AM CDT Debora Fernandes ? 12/20/2020 12:02 PM Treatment Rx #: 17 Erythema Grade: No Erythema Emollient applied with assistance: Yes Treatment Comments: tolerating tx well Total Body Dose mJ Change: Increased .050 mJ/cm2: 1.075 Time (min): 2:34 Total Body Dose Comments: red cabinet Exposure Face (mJ): Paper bag Goggles/protective glasses: Yes Genitals (mJ): N/A Prema Manning MD PROCEDURE/MINOR SURG ICAL ORDERABLES * IA PHOTOCHEMOTHERAPY WITH UV-B (12/18/2020 1:51 PM CDT) Narrative Debora Fernandes - 12/18/2020 1:51 PM CDT Debora Fernandes ? 12/18/2020 ??1:52 PM Treatment Rx #: 16 Erythema Grade: No Erythema Emollient applied with assistance: Yes Treatment Comments: tolerating tx well Total Body Dose mJ Change: Increased .050 mJ/cm2: 1.025 Time (min): 2:39 Total Body Dose Comments: red cabinet Exposure Face (mJ): Paper bag Goggles/protective glasses: Yes Genitals (mJ): Underwear Prema Manning MD PROCEDURE/MINOR SURG ICAL ORDERABLES * IA PHOTOCHEMOTHERAPY WITH UV-B (12/15/2020 11:01 AM CDT) Narrative Debora Fernandes - 12/15/2020 11:01 AM CDT Debora Fernandes ? 12/15/2020 11:09 AM Treatment Rx #: 15 Erythema Grade: No Erythema Emollient applied with assistance: Yes Treatment Comments: tolerating tx well Total Body Dose mJ Change: Increased .050 mJ/cm2: 0.975 Time (min): 2:17 Total Body Dose Comments: red cabinet Exposure Face (mJ): Paper bag Goggles/protective glasses: Yes Genitals (mJ): Underwear Prema Manning MD PROCEDURE/MINOR SURG ICAL ORDERABLES * IA PHOTOCHEMOTHERAPY WITH UV-B (12/13/2020 11:22 AM CDT) Narrative Debora Fernandes - 12/13/2020 11:22 AM CDT Debora Fernandes ? 12/13/2020 11:24 AM Treatment Rx #: 14 Erythema Grade: No Erythema Emollient applied with assistance: Yes Treatment Comments: tolerating tx well Total Body Dose mJ Change: Increased .050 mJ/cm2: 0.925 Time (min): 2:13 Total Body Dose Comments: red cabinet Exposure Face (mJ): Paper bag Goggles/protective glasses: Yes Genitals (mJ): N/A Prema Manning MD PROCEDURE/MINOR SURG ICAL ORDERABLES * IA PHOTOCHEMOTHERAPY WITH UV-B (12/11/2020 2:17 PM CDT) Narrative Debora Fernandes - 12/11/2020 2:17 PM CDT Debora Fernandes ? 12/11/2020 ??2:41 PM Treatment Rx #: 13 Erythema Grade: No Erythema Emollient applied with assistance: Yes Treatment Comments: tolerating tx well Total Body Dose mJ Change: Increased .050 mJ/cm2: 0.875 Time (min): 2:09 Total Body Dose Comments: red cabinet Exposure Face (mJ): Paper bag Goggles/protective glasses: Yes Genitals (mJ): N/A Prema Manning MD PROCEDURE/MINOR SURG ICAL ORDERABLES * IA PHOTOCHEMOTHERAPY WITH UV-B (12/08/2020 12:56 PM CDT) Narrative Debora Fernandes - 12/08/2020 12:56 PM CDT Debora Fernandes ? 12/08/2020 12:58 PM Treatment Rx #: 12 Erythema Grade: No Erythema Emollient applied with assistance: Yes Treatment Comments: tolerating tx well Total Body Dose mJ Change: Increased .050 mJ/cm2: 0.825 Time (min): 2:12 Total Body Dose Comments: red cabinet Exposure Face (mJ): Paper bag Goggles/protective glasses: Yes Genitals (mJ): N/A Prema Manning MD PROCEDURE/MINOR SURG ICAL ORDERABLES * IA PHOTOCHEMOTHERAPY WITH UV-B (12/06/2020 11:40 AM CDT) Narrative Debora Fernandes - 12/06/2020 11:40 AM CDT Debora Fernandes ? 12/06/2020 11:44 AM Treatment Rx #: 11 Erythema Grade: No Erythema Emollient applied with assistance: Yes Treatment Comments: tolerating tx well Total Body Dose mJ Change: Increased .050 mJ/cm2: 0.775 Time (min): 2:02 Total Body Dose Comments: red cabinet Exposure Face (mJ): Paper bag Goggles/protective glasses: Yes Genitals (mJ): Underwear Prema Manning MD PROCEDURE/MINOR SURG ICAL ORDERABLES * IA PHOTOCHEMOTHERAPY WITH UV-B (2020 11:01 AM CDT) Narrative Debora Fernandes - 2020 11:01 AM CDT Debora Fernandes ? 2020 11:12 AM Treatment Rx #: 10 Erythema Grade: No Erythema Emollient applied with assistance: Yes Treatment Comments: tolerating tx well Total Body Dose mJ Change: Increased .050 mJ/cm2: 0.725 Time (min): 1:47 Total Body Dose Comments: red cabinet Exposure Face (mJ): Paper bag Goggles/protective glasses: Yes Genitals (mJ): Underwear Prema Manning MD PROCEDURE/MINOR SURG ICAL ORDERABLES * IA PHOTOCHEMOTHERAPY WITH UV-B (11/29/2020 12:04 PM CDT) Narrative Debora Fernandes - 11/29/2020 12:04 PM CDT Debora Fernandes ? 11/29/2020 12:09 PM Treatment Rx #: 9 Erythema Grade: No Erythema Emollient applied with assistance: Yes Treatment Comments: tolerating tx well Total Body Dose mJ Change: Increased .050 mJ/cm2: 0.675 Time (min): 1:40 Total Body Dose Comments: red cabinet Exposure Face (mJ): Paper bag Goggles/protective glasses: Yes Genitals (mJ): N/A Prema Manning MD PROCEDURE/MINOR SURG ICAL ORDERABLES * IA PHOTOCHEMOTHERAPY WITH UV-B (11/27/2020 10:53 AM CDT) Narrative Cherry Red - 11/27/2020 10:53 AM CDT Cherry [place] ? 11/27/2020 11:04 AM Treatment Rx #: 8 Erythema Grade: No Erythema Emollient applied with assistance: Yes Treatment Comments: tolerating well Total Body Dose mJ Change: Increased .050 mJ/cm2: .625 Time (min): 1:37 Total Body Dose Comments: red cabinet Exposure Face (mJ): Paper bag Goggles/protective glasses: Yes Genitals (mJ): Underwear ?? Prema Manning MD PROCEDURE/MINOR SURG ICAL ORDERABLES * IA PHOTOCHEMOTHERAPY WITH UV-B (11/24/2020 11:54 AM CDT) Narrative Cherry Red - 11/24/2020 11:54 AM CDT Cherry [place] ? 11/24/2020 11:56 AM Treatment Rx #: 7 Erythema Grade: No Erythema Emollient applied with assistance: Yes Treatment Comments: tolerating well Total Body Dose mJ Change: Increased .050 mJ/cm2: .600 Time (min): 1:32 Total Body Dose Comments: red cabinet Exposure Face (mJ): Paper bag Goggles/protective glasses: Yes Genitals (mJ): Underwear Prema Manning MD PROCEDURE/MINOR SURG ICAL ORDERABLES * IA PHOTOCHEMOTHERAPY WITH UV-B (11/22/2020 11:14 AM CDT) Narrative Debora Fernandes - 11/22/2020 11:14 AM CDT Debora Fernandes ? 11/22/2020 11:17 AM Treatment Rx #: 6 Erythema Grade: No Erythema Emollient applied with assistance: Yes Treatment Comments: tolerating tx well Total Body Dose mJ Change: Increased .050 mJ/cm2: 0.525 Time (min): 1:23 Total Body Dose Comments: red cabinet Exposure Face (mJ): Paper bag Goggles/protective glasses: Yes Genitals (mJ): Underwear Prema Manning MD PROCEDURE/MINOR SURG ICAL ORDERABLES * IA PHOTOCHEMOTHERAPY WITH UV-B (11/20/2020 10:54 AM CDT) Narrative Debora Fernandes - 11/20/2020 10:54 AM CDT Debora Fernandes ? 11/20/2020 11:02 AM Treatment Rx #: 5 Erythema Grade: No Erythema Emollient applied with assistance: Yes Treatment Comments: tolerating tx well Total Body Dose mJ Change: Increased .050 mJ/cm2: 0.475 Time (min): 1:22 Total Body Dose Comments: red cabinet Exposure Face (mJ): Paper bag Goggles/protective glasses: Yes Genitals (mJ): N/A Prema Manning MD PROCEDURE/MINOR SURG ICAL ORDERABLES * IA PHOTOCHEMOTHERAPY WITH UV-B (11/17/2020 11:08 AM CDT) Narrative Debora Fernandes - 11/17/2020 11:08 AM CDT Debora Fernandes ? 11/17/2020 11:18 AM Treatment Rx #: 4 Erythema Grade: No Erythema Emollient applied with assistance: Yes Treatment Comments: tolerated last tx well Total Body Dose mJ Change: Increased .050 mJ/cm2: 0.425 Time (min): 1:13 Total Body Dose Comments: red cabinet Exposure Face (mJ): Paper bag Goggles/protective glasses: Yes Genitals (mJ): N/A Prema Manning MD PROCEDURE/MINOR SURG ICAL ORDERABLES * IA PHOTOCHEMOTHERAPY WITH UV-B (11/15/2020 11:11 AM CDT) Narrative Debora Fernandes - 11/15/2020 11:11 AM CDT Debora Fernandes ? 11/15/2020 11:13 AM Treatment Rx #: 3 Erythema Grade: No Erythema Emollient applied with assistance: Yes Treatment Comments: tolerated last tx well Total Body Dose mJ Change: Increased .050 mJ/cm2: 0.375 Time (min): 1:06 Total Body Dose Comments: red cabinet Exposure Face (mJ): Other (See comment) (pillow case) Goggles/protective glasses: Yes Genitals (mJ): N/A Prema Manning MD PROCEDURE/MINOR SURG ICAL ORDERABLES * IA PHOTOCHEMOTHERAPY WITH UV-B (11/13/2020 12:51 PM CDT) Narrative Debora Fernandes - 11/13/2020 12:51 PM CDT Debora Fernandes ? 11/13/2020 12:55 PM Treatment Rx #: 2 Erythema Grade: No Erythema Emollient applied with assistance: Yes Treatment Comments: tolerated 1st tx well; felt alittle warm for a few hoursin the evening, but no redness Total Body Dose mJ Change: Increased .025 mJ/cm2: 0.325 Time (min): 0:53 Total Body Dose Comments: red cabinet Exposure Face (mJ): Other (See comment) (pillow case) Goggles/protective glasses: Yes Genitals (mJ): Underwear Prema Manning MD PROCEDURE/MINOR SURG ICAL ORDERABLES * IA PHOTOCHEMOTHERAPY WITH UV-B (11/10/2020 11:50 AM CDT) Narrative Debora Fernandes - 11/10/2020 11:50 AM CDT Debora Fernandes ? 11/10/2020 11:57 AM Treatment Rx #: 1 Emollient applied with assistance: Yes Treatment Comments: initiate nbuvb per Dr Manning; consent signed Total Body Dose mJ/cm2: 0.300 Time (min): 0:51 Total Body Dose Comments: red cabinet Exposure Face (mJ): Other (See comment) (pillow case; mask on) Goggles/protective glasses: Yes Genitals (mJ): Underwear Prema Manning MD PROCEDURE/MINOR SURG ICAL ORDERABLES * SS-A (SJOGREN'S) 52+60 ANTIBODIES (09/07/2020 12:11 PM CDT) SS-A 52 Antibody 0 0 - 40 AU/mL 09/09/2020 1:55 PM CDT [facility] [employer] ([facility]) Comment: INTERPRETIVE INFORMATION: SSA-52 (Ro52) (NELSON) Antibody, IgG ??29 AU/mL or Less ............. Negative ??30 - 40 AU/mL ................ Equivocal ??41 AU/mL or Greater .......... Positive SSA-52 (Ro52) and/or SSA-60 (Ro60) antibodies are associated with a diagnosis of Sjogren syndrome, systemic lupus erythematosus (SLE), and systemic sclerosis. SSA-52 antibody overlaps significantly with the major SSc-related antibodies. SSA-52 (Ro52) antibody occurs frequently in patients with inflammatory myopathies, often in the presence of interstitial lung disease. SS-A 60 Antibody 1 0 - 40 AU/mL 09/09/2020 1:55 PM CDT [facility] [employer] ([facility]) Comment: REFERENCE INTERVAL: SSA-60 (Ro60) (NELSON) Antibody, IgG ??29 AU/mL or Less ............. Negative ??30 - 40 AU/mL ................ Equivocal ??41 AU/mL or Greater .......... Positive Performed By: [employer] [address] [place] [address] Assurance Senior: Brisa Blackburn MD Blood BLOOD SPECIMEN / Unknown Lab Venipuncture / Unknown 09/07/2020 12:11 PM CDT 09/07/2020 1:09 PM CDT Bin Heard MD LAB - CHEMISTRY TROY JSESICA [facility] Organization Address City/State/ZIP Co de Phone Number [facility] [employer] [facility]) [address] * SS-B (SJOGREN'S) ANTIBODY (09/07/2020 12:11 PM CDT) Only the most recent of2 resultswithin the time period is included. [facility] SS-B Antibody 0 0 - 40 AU/mL 09/09/2020 1:55 PM CDT [facility] ([facility]) Comment: INTERPRETIVE INFORMATION: SSB (La) (NELSON) Ab, IgG ??29 AU/mL or Less ............. Negative ??30 - 40 AU/mL ................ Equivocal ??41 AU/mL or Greater .......... Positive SSB (La) antibody is seen in 50-60% of Sjogren syndrome cases and is specific if it is the only NELSON antibody present. 15-25% of patients with systemic lupus erythematosus (SLE) and 5-10% of patients with progressive systemic sclerosis (PSS) also have this antibody. Performed By: [facility] [employer] [address] [place] [address] Assurance Senior: Brisa Blackburn MD Blood BLOOD SPECIMEN / Unknown Lab Venipuncture / Unknown 09/07/2020 12:11 PM CDT 09/07/2020 1:09 PM CDT Bin Heard MD LAB - CHEMISTRY TROY JESSICA Performing Organization Address City/[facility]/ZIP Co de Phone Number [facility] [place] [address] [place] [address] * HEPATITIS C AB SCREEN RFLX NAAT QUANT (09/07/2020 12:09 PM CDT) Hepatitis C Antibody Non-react danielle Non-reac tive 09/07/2020 1:58 PM CDT [facility] Comment:Hepatitis C Antibody screen indicates no [...] Heard MD LAB - CHEMISTRY TROY JESSICA [facility] [address] [place] [address], [facility] [phone] * CYCLIC CITRUL PEPTIDE ANTIBODY IGG/IGA (CCP) (09/07/2020 12:09 PM CDT) Pathologist [facility] CCP Antibodies IgG/IgA 4 0 - 19 units 09/09/2020 12:06 AM CDT [facility] ([facility]) Comment: ?Negative ? <20 ?Weak positive ?20 - 39 ?Moderate positive ??40 - 59 ?Strong positive ?>59 Blood BLOOD SPECIMEN / Unknown Lab Venipuncture / Unknown 09/07/2020 12:09 PM CDT 09/07/2020 1:09 PM CDT Narrative [facility] ([facility]) - 09/09/2020 12:06 AM CDT Performed at: ??01 - [address] ??[id number] Library Specialist: Kamaljit Ruelas MD, Phone: ??[phone] Bin Heard MD LAB - SEROLOGY ORDER [facility] ([facility]) [address] [place] [address], [facility] * PROTEIN ELECTROPHORESIS URINE RANDOM (09/07/2020 12:09 PM CDT) Pathologist [facility] Interpretation Urine PE See Comment Normal Pattern 09/22/2020 5:38 PM CDT [facility] Comment: Urine protein electrophoresis shows a band corresponding to albumin with small amounts of other nonspecific proteinuria. No monoclonal immunoglobulins detected. Jordana Palacio PhD, [facility] Clinical [employer] rural route mail carrier Protein Urine <7 Not Established mg/dL 09/22/2020 5:38 PM CDT [facility] Urine URINE SPECIMEN OBTAINED BY CLEAN CATCH PROCEDURE / Unknown Collection / Unknown 09/07/2020 12:09 PM CDT 09/07/2020 1:14 PM CDT Bin Heard MD LAB - URINE CHEMISTR Y ORDERABLES Performing Organization Address City/[facility]/ZIP Co de Phone Number [address] [address], [place] [phone] * URIC ACID BLOOD (09/07/2020 12:09 PM CDT) Uric Acid 5.4 2.6 - 6.0 mg/dL 09/07/2020 1:41 PM CDT [facility] Blood BLOOD SPECIMEN / Unknown Lab Venipuncture / Unknown 09/07/2020 12:09 PM CDT 09/07/2020 1:15 PM CDT Bin Heard MD LAB - CHEMISTRY TROY JESSICA Performing Organization Address [facility]/ZIP Co de Phone Number [address] [address], [place] [phone] * RHEUMATOID FACTOR BLOOD QUANTITATIVE (09/07/2020 12:09 PM CDT) Rheumatoid Factor <15 <30 IU/mL 09/07/2020 1:39 PM CDT [facility] Rheumatoid Factor Screen Negative Negative 09/07/2020 1:39 PM CDT [facility] Blood BLOOD SPECIMEN / Unknown Lab Venipuncture / Unknown 09/07/2020 12:09 PM CDT 09/07/2020 1:09 PM CDT Bin Heard MD LAB - CHEMISTRY TROY JESSICA Performing Organization Address City/[facility]/ZIP Co de Phone Number [address] [address], [place] [phone] * C-REACTIVE PROTEIN (09/07/2020 12:09 PM CDT) C-Reactive Protein <0.5 <=0.5 mg/dL 09/07/2020 1:37 PM CDT [facility] Blood BLOOD SPECIMEN / Unknown Lab Venipuncture / Unknown 09/07/2020 12:09 PM CDT 09/07/2020 1:10 PM CDT Bin Heard MD LAB - CHEMISTRY ORDE ARACELY [facility] [address] [place] [address], [facility] [phone] * OJ BLOOD SCREEN W/REFLEX TITER (09/07/2020 12:09 PM CDT) Pathologist [facility] OJ IgG None Detected None Detected 09/09/2020 4:18 PM CDT [employer] ([facility]) Comment: If suspicion of connective tissue disease is strong and OJ EIA is negative, consider testing for OJ by IFA ([id number]). INTERPRETIVE INFORMATION: Anti-Nuclear Antibodies (OJ), IgG by TRAVIS Antinuclear Antibodies (OJ), IgG by TRAVIS: OJ specimens are screened using enzyme-linked immunosorbent assay (TRAVIS) methodology. All TRAVIS results reported as Detected are further tested by indirect fluorescent assay (IFA) using HEp-2 substrate with an IgG-specific conjugate. The OJ TRAVIS screen is designed to detect antibodies against dsDNA, histones, SS-A (Ro), SS-B (La), Guillermo, Guillermo/DELPHI PROGRAMMER, Scl-70, Almaz-1, centromeric proteins, other antigens extracted from the HEp-2 cell nucleus. OJ TRAVIS assays have been reported to have lower sensitivities than OJ IFA for systemic autoimmune rheumatic diseases (SARD). Negative results do not necessarily rule out SARD. Performed By: [employer] [address] [place] [id number] Assurance Senior: Brisa Blackburn MD Blood BLOOD SPECIMEN / Unknown Lab Venipuncture / Unknown 09/07/2020 12:09 PM CDT 09/07/2020 1:09 PM CDT Bin Heard MD LAB - CHEMISTRY TROY JESSICA Performing Organization Address [facility]/ZIP Co de Phone Number [facility] [employer] [facility]) [address] [place] [address] * HLA TYPING B27 (09/07/2020 12:09 PM CDT) Pathologist [facility] HLA-B27 Negative Negative 09/09/2020 10:38 PM CDT [facility] ([facility]) Comment: INTERPRETIVE INFORMATION: HLA-B27 HLA-B27 is a serologically defined allele of the human HLA-B locus. The presence of the HLA-B27 antigen is strongly associated with ankylosing spondylitis and related disorders. This test was developed and its performance characteristics determined by [employer]. It has not been cleared or approved by the [place] Food and Drug Administration. This test was performed in a CLIA certified laboratory and is intended for clinical purposes. Performed by [facility], [address] [place] [address] [email or web address], Brisa Blackburn MD, Lab. Director Blood BLOOD SPECIMEN / Unknown Lab Venipuncture / Unknown 09/07/2020 12:09 PM CDT 09/07/2020 12:47 PM CDT Bin Heard MD LAB - CHEMISTRY TROY JESSICA Performing Organization Address [facility]/[place] Co de Phone Number [facility] [place] [address] [place] [address] * ERYTHROCYTE SEDIMENTATION RATE (09/07/2020 12:09 PM CDT) Pathologist [facility] Erythrocyte Sedimentation Rate Westergren 17 0 - 30 MM/HR 09/07/2020 1:56 PM CDT [facility] Blood BLOOD SPECIMEN / Unknown Lab Venipuncture / Unknown 09/07/2020 12:09 PM CDT 09/07/2020 1:13 PM CDT Bin Heard MD LAB - HEMATOLOGY ORD BORA [facility] [place] [address], [facility] [phone] * (ABNORMAL) CBC WITH DIFFERENTIAL (09/07/2020 12:09 PM [facility] Signature WBC 6.6 3.5 - 10.5 10? 3 /uL 09/07/2020 1:30 PM [facility] RBC 4.32 3.80 - 5.20 10? 6 /uL 09/07/2020 1:30 PM [facility] Hemoglobin 14.0 12.0 - 15.6 g/dL 09/07/2020 1:30 PM [facility] Hematocrit 43.8 35.0 - 45.0 % 09/07/2020 1:30 PM [facility] MCV 101.4(H) 80.7 - 98.3 fL 09/07/2020 1:30 PM [facility] MCH 32.4 26.7 - 34.0 pg 09/07/2020 1:30 PM [facility] MCHC 32.0 30.8 - 35.9 g/dL 09/07/2020 1:30 PM [facility] Platelet Count 237 150 - 400 10? 3 /uL 09/07/2020 1:30 PM [facility] RDW-SD 46.1 36.0 - 50.0 fL 09/07/2020 1:30 PM [facility] RDW-CV 12.2 11.2 - 14.8 % 09/07/2020 1:30 PM [facility] MPV 11.6 9.4 - 12.9 fL 09/07/2020 1:30 PM [facility] nRBC Absolute 0.00 0 10? 3 /uL 09/07/2020 1:30 PM [facility] nRBC Auto 0.0 0 /100 WBC 09/07/2020 1:30 PM [facility] Neutrophils % 58.3 35.0 - 70.0 % 09/07/2020 1:30 PM [facility] Lymphocytes % 30.0 20.0 - 43.0 % 09/07/2020 1:30 PM [facility] Monocytes % 8.8 5.0 - 13.0 % 09/07/2020 1:30 PM CDT [facility] Eosinophils % 1.2 0.0 - 6.0 % 09/07/2020 1:30 PM CDT [facility] Basophil % 1.2 0.0 - 2.0 % 09/07/2020 1:30 PM CDT [facility] Neutrophils Absolute 3.9 1.6 - 7.0 10? 3 /uL 09/07/2020 1:30 PM CDT [facility] Lymphocyte Absolute 2.0 1.1 - 3.9 10? 3 /uL 09/07/2020 1:30 PM CDT [facility] Monocytes Absolute 0.58 0.26 - 1.07 10? 3 /uL 09/07/2020 1:30 PM T [facility] Eosinophils Absolute 0.08 0.00 - 0.47 10? 3 /uL 09/07/2020 1:30 PM T [facility] Basophils Absolute 0.08 0.00 - 0.08 10? 3 /uL 09/07/2020 1:30 PM [facility] Immature Granulocytes % 0.5 0.0 - 1.0 % 09/07/2020 1:30 PM T [facility] Immature Granulocytes Absolute 0.03 09/07/2020 1:30 PM [facility] Blood BLOOD SPECIMEN / Unknown Lab Venipuncture / Unknown 09/07/2020 12:09 PM CDT 09/07/2020 1:13 PM CDT Bin Heard MD LAB - HEMATOLOGY ORD ERABLES Performing Organization Address City/State/RUST Co de Phone Number [facility] [address] [place] [address], [facility] [phone] * (ABNORMAL) COMPREHENSIVE METABOLIC PANEL (09/07/2020 12:09 PM CDT) BUN 10 7 - 26 mg/dL 09/07/2020 1:41 PM T [facility] Creatinine 0.74 0.56 - 0.96 mg/dL 09/07/2020 1:41 PM T [facility] Sodium 141 136 - 145 mmol/L 09/07/2020 1:41 PM [facility] Potassium 4.2 3.5 - 4.5 mmol/L 09/07/2020 1:41 PM [facility] Chloride 102 98 - 107 mmol/L 09/07/2020 1:41 PM [facility] CO2 28 22 - 29 mmol/L 09/07/2020 1:41 PM [facility] Glucose 96 70 - 115 mg/dL 09/07/2020 1:41 PM [facility] Calcium 9.3 8.4 - 10.2 mg/dL 09/07/2020 1:41 PM [facility] Protein Total 7.3 6.0 - 8.3 g/dL 09/07/2020 1:41 PM [facility] Albumin 4.1 3.4 - 5.0 g/dL 09/07/2020 1:41 PM [facility] Bilirubin Total 0.5 0.2 - 1.2 mg/dL 09/07/2020 1:41 PM [facility] Alkaline Phosphatase 66 40 - 150 U/L 09/07/2020 1:41 PM [facility] ALT 14 5 - 55 U/L 09/07/2020 1:41 PM [facility] AST 21 5 - 34 U/L 09/07/2020 1:41 PM [facility] Anion Gap 15 8 - 18 09/07/2020 1:41 PM [facility] BUN/Creatinine Ratio 14 7 - 23 09/07/2020 1:41 PM [facility] Osmolality Calculated 291 270 - 300 mOsm/kg 09/07/2020 1:41 PM [facility] Albumin/Globulin Ratio 1.3 1.1 - 2.3 09/07/2020 1:41 PM [facility] eGFR by CKD-EPI 80(L) >=90 mL/min/1.7 3 m2 09/07/2020 1:41 PM [facility] Blood BLOOD SPECIMEN / Unknown Lab Venipuncture / Unknown 09/07/2020 12:09 PM CDT 09/07/2020 1:15 PM T Bin Heard MD LAB - CHEMISTRY [facility] [address] [place] [address], [facility] [phone] * PROTEIN ELECTROPHORESIS BLOOD (09/07/2020 12:09 PM CDT) Interpretation Serum PE Normal Pattern Normal Pattern 09/12/2020 10:53 AM T [facility] Comment: Serum capillary electrophoresis shows characteristic bands corresponding to albumin, alpha and beta globulins and polyclonal immunoglobulins. No monoclonal immunoglobulins detected. Non-secretory myeloma (NSM) and light chain only myeloma cannot be excluded based on this result. ??Recommend serum free light chain measurements for complete evaluation of plasma cell disorders. ?? Jordana Palacio PhD, [facility] Clinical [employer] mail [employer] *The electrophoresis pattern and the interpretation have been reviewed and verified by the teaching physician. Protein Total 6.9 6.0 - 8.3 g/dL 09/12/2020 10:53 AM CDT [facility] Albumin 4.1 3.3 - 5.6 g/dL 09/12/2020 10:53 AM T [facility] Alpha-1 Globulins 0.3 0.2 - 0.4 g/dL 09/12/2020 10:53 AM T [facility] Alpha-2 Globulins 0.8 0.5 - 1.0 g/dL 09/12/2020 10:53 AM T [facility] Beta Globulins 0.8 0.6 - 1.1 g/dL 09/12/2020 10:53 AM T [facility] Gamma Globulins 0.9 0.6 - 1.6 g/dL 09/12/2020 10:53 AM T [facility] Blood BLOOD SPECIMEN / Unknown Lab Venipuncture / Unknown 09/07/2020 12:09 PM CDT 09/07/2020 1:10 PM CDT Bin Heard MD LAB - CHEMISTRY [facility] [address] [place] [address], [facility] [phone] * XR SI JOINTS 3VW OR MORE (09/07/2020 11:36 AM CDT) Anatomical Region Laterality Modality Pelvis, Lower Extremity Radiogra [facility] 09/07/2020 11:4 1 AM CDT Impressions 09/07/2020 1:04 PM CDT IMPRESSION: Mild degenerative changes of the sacroiliac joints. No sacroiliitis. Mild degenerative changes of the lumbar spine most prominent at L4-L5 and L5-S1. Chronic appearing deformity of the anterior superior endplate of L3, correlate with history. Dictated by Сергей Roberts MD (vice president diversity). I, Dr. DORI GONZALEZ have personally reviewed and interpreted this examination/study. This report was electronically signed by DORI GONZALEZ ??on 09/07/2020 1:04 PM . Narrative 09/07/2020 1:04 PM CDT EXAMINATION: XR SI JOINTS 3VW , XR LUMBAR SPINE 4VW HISTORY: M19.90: Arthritis COMPARISON: No prior study is available for comparison. FINDINGS: Sacroiliac joints: There is mild degenerative changes of the sacroiliac joints with no evidence of effusion. There is no acute fracture or dislocation. The femoral heads appear well-seated within their respective acetabula. The pubic symphysis is intact. Bone density and texture are normal. Lumbar spine: The vertebral bodies are normally aligned on flexor and extension views. There is a chronic appearing displaced deformity of the anterior superior endplate of L3 with mild wedging of the anterior vertebral body resulting in minimal vertebral body height loss. Minimal osteophyte formation at the superior and inferior endplates of L4 and superior endplate of L5. There is mild joint space narrowing at L4-L5 and L5-S1. Procedure Note Dori Gonzalez MD - 09/07/2020 EXAMINATION: XR SI JOINTS 3VW , XR LUMBAR SPINE 4VW HISTORY: M19.90: Arthritis COMPARISON: No prior study is available for comparison. FINDINGS: Sacroiliac joints: There is mild degenerative changes of the sacroiliac joints with no evidence of effusion. There is no acute fracture or dislocation. The femoral heads appear well-seated within their respective acetabula. The pubic symphysis is intact. Bone density and texture are normal. Lumbar spine: The vertebral bodies are normally aligned on flexor and extension views. There is a chronic appearing displaced deformity of the anteriorsuperior endplate of L3 with mild wedging of the anterior vertebral bodyresulting in minimal vertebral body height loss. Minimal osteophyte formation atthe superior and inferior endplates of L4 and superior endplate of L5. There is mild joint space narrowing at L4-L5 and L5-S1. IMPRESSION: Mild degenerative changes of the sacroiliac joints. No sacroiliitis. Mild degenerative changes of the lumbar spine most prominent at L4-L5and L5-S1. Chronic appearing deformity of the anterior superior endplate of L3, correlate with history. Dictated by Сергей Roberts MD (vice president diversity). Dr. DORI Davalos have personally reviewed and interpreted this examination/study. This report was electronically signed by DORI GONZALEZ on 09/07/2020 1:04PM . Bin Heard MD DIAGNOSTIC IMAGING O RDERABLES * XR LUMBAR SPINE 4VW OR MORE (09/07/2020 11:36 AM CDT) Anatomical Region Laterality Modality Spine Radiographic Dunia ging 09/07/2020 11:4 1 AM CDT Impressions 09/07/2020 1:04 PM CDT IMPRESSION: Mild degenerative changes of the sacroiliac joints. No sacroiliitis. Mild degenerative changes of the lumbar spine most prominent at L4-L5 and L5-S1. Chronic appearing deformity of the anterior superior endplate of L3, correlate with history. Dictated by Сергей Roberts MD (vice president diversity). Dr. DORI Davalos have personally reviewed and interpreted this examination/study. This report was electronically signed by DORI GONZALEZ ??on 09/07/2020 1:04 PM . Narrative 09/07/2020 1:04 PM CDT EXAMINATION: XR SI JOINTS 3VW , XR LUMBAR SPINE 4VW HISTORY: M19.90: Arthritis COMPARISON: No prior study is available for comparison. FINDINGS: Sacroiliac joints: There is mild degenerative changes of the sacroiliac joints with no evidence of effusion. There is no acute fracture or dislocation. The femoral heads appear well-seated within their respective acetabula. The pubic symphysis is intact. Bone density and texture are normal. Lumbar spine: The vertebral bodies are normally aligned on flexor and extension views. There is a chronic appearing displaced deformity of the anterior superior endplate of L3 with mild wedging of the anterior vertebral body resulting in minimal vertebral body height loss. Minimal osteophyte formation at the superior and inferior endplates of L4 and superior endplate of L5. There is mild joint space narrowing at L4-L5 and L5-S1. Procedure Note Dori Gonzalez MD - 09/07/2020 EXAMINATION: XR SI JOINTS 3VW , XR LUMBAR SPINE 4VW HISTORY: M19.90: Arthritis COMPARISON: No prior study is available for comparison. FINDINGS: Sacroiliac joints: There is mild degenerative changes of the sacroiliac joints with no evidence of effusion. There is no acute fracture or dislocation. The femoral heads appear well-seated within their respective acetabula. The pubic symphysis is intact. Bone density and texture are normal. Lumbar spine: The vertebral bodies are normally aligned on flexor and extension views. There is a chronic appearing displaced deformity of the anteriorsuperior endplate of L3 with mild wedging of the anterior vertebral bodyresulting in minimal vertebral body height loss. Minimal osteophyte formation atthe superior and inferior endplates of L4 and superior endplate of L5. There is mild joint space narrowing at L4-L5 and L5-S1. IMPRESSION: Mild degenerative changes of the sacroiliac joints. No sacroiliitis. Mild degenerative changes of the lumbar spine most prominent at L4-L5and L5-S1. Chronic appearing deformity of the anterior superior endplate of L3, correlate with history. Dictated by Сергей Roberts MD (vice president diversity). I, Dr. DORI GONZALEZ have personally reviewed and interpreted this examination/study. This report was electronically signed by DORI GONZALEZ on 09/07/2020 1:04PM . Bin Heard MD DIAGNOSTIC IMAGING O RDERABLES * FROZEN SECTION (09/02/1995 9:00 AM CDT) Result CASE NUMBER [id number] Comment: ORDERING PHYSICIAN ??LEODAN MCLEAN SPECIMEN TYPE ?Parathyroid Gland Date ? 09/02/1995 Physician ?Faisal Gross Description ? The specimen is received fresh and is labeled with the patient's name and parathyroid tissue . ??It consists of an oval fragment of tissue measuring 1.2 x 0.6 x 0.3 cm which weighs 0.71 grams. ??The specimen is entirely submitted in one cassette labeled FSA. ??JF/lmj Microscopic Exam ? Sections of the parathyroid reveal a fragment of parathyroid tissue with some surrounding adipose tissue. ??No malignant features are seen. ??No rim of compressed normal parathyroid is identified. The features could, therefore, present either an adenoma or a hyperplasia and clinical correlation, with respect to the remaining parathyroid glands is necessary to make the distinction. ??The lesion is composed primarily of sheets of chief cells with some intermixed areas of oxyphilic cells. Diagnosis ? I. ?? Parathyroid tissue , parathyroidectomy ?A. Parathyroid tissue, 0.71 grams (see ? microscopic description). *Snomed Code 1 ? F06071 - [id number] Software Applications Developer ? kn Pathologist ?Austin Chapin M.D. MISCELLANEOUS SAMPLES / Unknown 09/02/1995 9:00 AM CDT 09/02/1995 9:00 AM CDT Historical Provider LAB - PATHOLOGY/C YTOLOGY ORDERABLES Care Teams Office Machine Repair Shop Supervisor Relationship Specialty Start Date End Date Keon Alston MD [address] [place] [id number] PCP - General Family Medicine 05/07/23
[2024-04-26] MEDS: HYDROmorphone HCL INJ (*CRX) 1 MG/ML SYR IV PUSH (03:49)
[2024-04-26] MEDS: SODIUM CHLORIDE 0.9% IV 1,000 ML 999 ML (03:49)
--- NOTE | 2024-04-26 04:05 | PC.NURSE ---
edp at bedside. 0405 Verbal consent obtained. 0406 Time out conducted. 0407 Propofol 100mg pushed by edp 0407 Shoulder reduced 0408 desat 72% BMV by EDP/RT 0409 Pt Awake 0420 xray obtained 042
--- NOTE | 2024-04-26 04:25 | PC.NURSE ---
Propofol 100mg wasted with rhys lin.
[2024-04-26] MEDS: PROPOFOL IV EMULSION 200 MG/20 ML VIAL 120 MG IV PUSH (05:06)
--- NOTE | 2024-04-26 05:19 | ED_ITS ---
HPI - Extremity Injury (Upper) General Chief Complaint: Extremity Injury, Upper Stated Complaint: POSSIBLE RIGHT SHOULDER DISLOCATION Time Seen by Provider: 04/26/24 03:26 History of Present Illness HPI narrative: 78-year-old female presenting to the emergency department after a mechanical fall with right shoulder pain. Patient states that she was leaning over to reach for something, fell forward and felt a popping sensation in her right shoulder. She has a obvious deformity and suspicion for shoulder dislocation. She is able to range her shoulder briefly and finds position of comfort with her right arm above her head. Fifty of fentanyl was provided prior to arrival by EMS. She has good cardiology coordinator strength and no sensory changes to the arm. Was otherwise in her normal state of health. No recent injuries. Denies any head trauma or other injury today. Related Data Home Medications ?Medication ?Instructions ?Recorded ?Confirmed ?Last Taken ?Type cyanocobalamin (vitamin B-12) 1,000 mcg PO DAILY 02/08/19 01/08/24 Unknown History 1,000 mcg tablet (Vitamin B-12) calcium citrate 250 mg PO DAILY 05/27/19 01/08/24 Unknown History lutein 20 mg tablet 20 mg PO DAILY 09/23/23 01/08/24 Unknown History Allergies Allergy/AdvReac Type Severity Reaction Status Date / Time amoxicillin Allergy Mild Gastrointestinal Verified 01/13/24 12:59 Upset clavulanic acid Allergy Mild Gastrointestinal Verified 01/13/24 12:59 Upset codeine Allergy Mild Fainting Verified 01/13/24 12:59 erythromycin base Allergy Mild Gastrointestinal Verified 01/13/24 12:59 Upset Xrldtag-GWJ-CyV Reductase Allergy Mild Gastrointestinal Verified 01/13/24 12:59 Inhibitor (Cttmslp-Hav-Voo Upset Reductase Inhibitor) Review of Systems Review of Systems: As reviewed above [facility] HPI [facility] Past Medical History Medical History Internal hemorrhoid Chronic GERD COVID-19 Hyperthyroidism Anxiety Essential (primary) hypertension Mixed hyperlipidemia Seasonal allergic rhinitis Vitamin D deficiency Social History Social History Smoking status: Never smoker Second hand tobacco smoke exposure: Yes Alcohol intake: current Drinks per week: 7 Alcohol use details: a glass of wine at dinner Substance use: never Substance use type: does not use Lack of Transportation: No Lack of Food: Never True Current Housing: I Have Housing Concerned About Future Housing: No Difficulty Paying Gas/Electric Bills: No Difficulty Paying for Meds: No Currently Unemployed: No Education: High School Diploma/GED Difficulty w/ Childcare or Family Care: No Gender identity (if verbalized by the patient): Female Exam Narrative: GENERAL: Uncomfortable appearing in pain, not any acute distress HEAD: [Normocephalic, atraumatic.] EYES: [PERRLA and EOMI.] ENT: Nares clear, no rhinorrhea or epistaxis. Mucous membranes moist. NECK: Supple. CHEST: [Clear to auscultation. No respiratory distress.] HEART: [Regular rate and rhythm]. No murmur heard. [Normal peripheral pulses.] ABDOMEN: [Soft, nondistended], [nontender], [No rigidity or guarding] EXTREMITIES: The right shoulder has an obvious deformity and appears out of pl castillo with a squaring off the shoulder, held in abduction and flexed position. Senior Application Software Engineer strength 5/5, full range of motion of the elbow and wrist. No appreciable step-offs, no scapular pain, no midline thoracic, cervical or lumbar pain. No other appreciable injuries. SKIN: Warm, dry, no rash. NEURO: [No focal deficits]. Alert and oriented [x3.] PSYCH: [Normal mood and affect.] Course Vital Signs Vital signs: Vital Signs Temperature 36.7 C 04/26/24 02:27 Pulse Rate 91 04/26/24 02:27 Respiratory Rate 16 04/26/24 02:27 Blood Pressure 137/59 L 04/26/24 02:27 Pulse Oximetry 96 04/26/24 02:27 Oxygen Delivery Room Air 04/26/24 02:27 Temperature 36.6 C 04/26/24 04:20 Pulse Rate 92 04/26/24 04:50 Respiratory Rate 14 04/26/24 04:50 Blood Pressure 134/57 L 04/26/24 04:50 Pulse Oximetry 99 04/26/24 04:50 Oxygen Delivery Nasal Cannula 04/26/24 04:50 Oxygen Flow Rate 2 04/26/24 04:50 Procedures Orthopedic Joint Reduction Joint #1: Orthopedic Joint Reduction Date: 04/26/24 Orthopedic Joint Reduction Time: 04:10 Time Out Performed: Yes Side: right Joint Reduction Location: shoulder Analgesia: procedural sedation Pre-Procedure Neuro Vascular Exam: normal Shoulder Technique Used (if applicable): scapula manipulation and external rotation Post-reduction neuro exam: intact Post-reduction vascular: intact Post Reduction X-Ray Obtained: Yes Post Reduction X-Ray Results: reduced Splint Applied: Yes Patient Tolerated Procedure: well Procedural Sedation Procedural Sedation #1: Procedural Sedation Date: 04/26/24 Procedural Sedation Time: 04:04 Presedation Evaluation: Mallampati score 2, last oral intake greater than 8 hours prior, normal teeth without any dentures. Normal range of motion of the jaw and mouth. Procedure: Right-sided shoulder reduction Provider Performed: sedation and procedure Time Out: 0404 Informed Consent Obtained: yes Equipment in Room: bag and mask, capnography, division field inspector, crash cart, oxygen, pulse oximeter and suction Plan for Sedation: moderate sedation ASA Class: II Mallampati Classification: class II NPO Status: last solid food (hours ago) and last liquid food (hours ago) Explanation to Patient/Family: Risk/Benefits/Alternatives and Pt/Family agreed with plan Pt. Educated on Procedural Sedation: Yes Re-evaluated immediately prior: Yes Preparation: division field inspector applied, pulse oximeter, capnometry used, supplemental O2 applied, reversal agents at bedside, suction/airway equipment at bedside and IV secured IV Propofol dose (mg): 100 Reversal Agents Used: none Complications: hypoventilation (Hypoventilation after induction requiring BVM via RT for several minutes, emerged without complication) Interventions: oxygen applied, airway repositioned and assist by BVM Total Sedation Time (min): 20 Additional Comments: Successful reduction, patient woke up without any further complication and remained asymptomatic thereafter. MDM - Extremity Injury (Upper) MDM Narrative Medical decision making narrative: 78-year-old female presenting to the emergency room with suspected right shoulder dislocation. Patient states she leaned forward too far and fell forward bracing herself with her wrist. She sustained an obvious appearing shoulder dislocation but did not strike her head or lose consciousness. Not any kind of blood thinner medications. She has normal neuro vasculature but does have a squared off right externally rotated and abducted shoulder joint. X-ray obtained and confirmed to be dislocated per my interpretation. No appreciable fracture. Laboratory studies were obtained and procedural sedation, joint reduction performed as dictated above in the procedure note. Patient tolerated the procedures, observed in the emergency department for several hours after anesthesia and remained asymptomatic, pain improved and repeat film shows successful reduction without complication. She remains in a shoulder immobilizer at this time and stable for discharge home with outpatient evaluation by Orthopedic surgery. Patient verbalized understanding these instructions and safely discharged home with pain control medications. Medical Records Attestation: I reviewed the patient's medical records. Lab Data Attestation: I reviewed the patient's lab results. Imaging Data Attestation: I personally reviewed and interpreted this imaging study as follows: My impression: Initial x-ray shows anterior dislocation of the right shoulder. Second x-ray post reduction shows successful reduction of the anterior dislocation without any complications such as fracture or remaining dislocation. Discharge Plan Discharge Clinical Impression: Anterior dislocation of right shoulder Patient Disposition: Home, Self-Care Condition: Stable Instructions: Antibiotic Form, Shoulder Dislocation (ED), Moderate Sedation (ED), Closed Reduction (ED), Shoulder Immobilizer (ED) Additional Instructions: Remain in the shoulder immobilizer and sling for comfort and to maintain the joint in the appropriate space. Take Tylenol ibuprofen for pain control. Call the orthopedic clinic for follow-up appointment information. Return with any new or worsening concerns at any time. Patient Language: Paraguayan Prescriptions: New acetaminophen [Tylenol Extra Strength] 500 mg tablet 1,000 mg PO Q8H PRN (Reason: pain) Qty: 30 0RF ibuprofen 600 mg tablet 600 mg PO TID PRN (Reason: pain) Qty: 20 0RF No Action benzonatate 100 mg capsule 100 mg PO TID PRN (Reason: cough) Qty: 10 0RF Proctofoam HC 1-1 % foam 1 applic RECTAL BID Qty: 10 2RF prednisone 20 mg tablet 40 mg PO DAILY Qty: 10 0RF levofloxacin 500 mg tablet 500 mg PO DAILY Qty: 5 0RF cyanocobalamin (vitamin B-12) [Vitamin B-12] 1,000 mcg tablet 1,000 mcg PO DAILY lutein 20 mg tablet 20 mg PO DAILY Rx Instructions: give with meal/snack calcium citrate 250 mg calcium Tablet 250 mg PO DAILY ergocalciferol (vitamin D2) 1,250 mcg (50,000 unit) capsule See Rx Instructions .ROUTE .COMPLEX Qty: 3 3RF Dose Instruction: TAKE 1 CAPSULE BY MOUTH MONTHLY Rx Instructions: TAKE 1 CAPSULE BY MOUTH MONTHLY alprazolam [Xanax] 0.25 mg tablet 0.25 mg PO TID PRN (Reason: Anxiety) Qty: 90 0RF folic acid 1 mg tablet See Rx Instructions .ROUTE .COMPLEX Qty: 90 1RF Dose Instruction: TAKE 1 TABLET BY MOUTH EVERY DAY Rx Instructions: TAKE 1 TABLET BY MOUTH EVERY DAY candesartan 8 mg tablet See Rx Instructions .ROUTE .COMPLEX Qty: 90 1RF Dose Instruction: TAKE 1 TABLET DAILY Rx Instructions: TAKE 1 TABLET DAILY esomeprazole magnesium 40 mg capsule,delayed release(DR/EC) See Rx Instructions .ROUTE .COMPLEX Qty: 180 1RF Dose Instruction: TAKE 1 CAPSULE TWICE DAILY Rx Instructions: TAKE 1 CAPSULE TWICE DAILY Follow-up/Referrals: Chau Oliveros MD [Physician] - 1 Week (Anterior shoulder dislocation status post closed reduction) Keon Alston MD [Primary Care Provider] - Time of Disposition: 05:31
--- NOTE | 2024-04-26 07:27 | PC.NURSE ---
Entered pt room to pt resting comfortably in bed. Pt oxygen saturation between 88-90% on room air. This RN woke pt up, repositioned, and pt oxygen increased to 95% room air.
== END 2024-04-26 08:20 | disposition home or self-care (01) ==
PROVIDERS: Emergency Provider Student in an Organized Health Care Education/Training Program; PCP Family Medicine
DX: S43.004A Unspecified dislocation of right shoulder joint, initial encounter (principal); W18.30XA Fall on same level, unspecified, initial encounter; E05.90 Thyrotoxicosis, unspecified without thyrotoxic crisis or storm; E55.9 Vitamin D deficiency, unspecified; E78.2 Mixed hyperlipidemia
CPT/HCPCS: 23650; 46050; 73030; 96374; 96375; 99285; J1171; J2704; J7030

== ENCOUNTER 2024-05-14 07:11 | Outpatient (CLI) | payer MEDICARE, BC, SELFPAY ==
--- NOTE | ~2024-05-14 | MR_ITS ---
EXAMINATION: MR shoulder RT wo con DATE: 05/14/2024 07:55 INDICATION: Unspecified rotator cuff tear or rupture. Right shoulder pain. TECHNIQUE: Magnetic resonance imaging (MRI) of the right shoulder was performed without intravenous c ontrast. Sequences included axial PD-weighted FS FSE, coronal oblique PD-weighted FS FSE and T2-weigh christiana FS FSE, and sagittal oblique T2-weighted FS FSE and T1-weighted FSE. COMPARISON: Right shoulder radiographs 05/03/2024 FINDINGS: Coracoacromial arch: The acromion undersurface is curved in morphology (type II). There is severe acromioclavicular joint osteoarthritis. There is moderate subacromial/subdeltoid bursitis. Rotator cuff: There is a full-thickness tear of anterior supraspinatus tendon. There is an articular sided partial- thickness tear of posterior supraspinatus tendon and anterior infraspinatus tendon. Together, the tea r components measure 16 mm anterior to posterior by 31 mm proximal to distal. Teres minor tendon is n ormal. There is mild subscapularis tendinopathy. There is no asymmetric fatty atrophy of the rotator cuff muscle bellies. Biceps tendon and glenoid labrum: There is a complete tear of biceps tendon with scarred tendon in the bicipital groove. There is degen erative tearing of the glenoid labrum (SLAP tear). Fluid: There is a small glenohumeral joint effusion. Bones/cartilage: There is shallow partial-thickness cartilage loss of glenoid and humeral head. IMPRESSION: 1. Full-thickness rotator cuff tear. 2. Mild glenohumeral joint chondrosis. 3. Severe acromioclavicular joint osteoarthritis. 4. Complete tear of proximal biceps tendon. 5. Small glenohumeral joint effusion and moderate subacromial/subdeltoid bursitis. Reviewed, dictated and finalized at location A. URE ROOM WORKER IMPRESSION: 1. Full-thickness rotator cuff tear. 2. Mild glenohumeral joint chondrosis. 3. Severe acromioclavicular joint osteoarthritis. 4. Complete tear of proximal biceps tendon. 5. Small glenohumeral joint effusion and moderate subacromial/subdeltoid bursit is.
== END 2024-05-14 07:12 | disposition home or self-care (01) ==
LOC: MICIMG 07:12
PROVIDERS: PCP Family Medicine; Visit Provider Orthopaedic Surgery
DX: M75.101 Unspecified rotator cuff tear or rupture of right shoulder, not specified as traumatic (principal); M94.211 Chondromalacia, right shoulder; M19.011 Primary osteoarthritis, right shoulder; M25.411 Effusion, right shoulder; M75.51 Bursitis of right shoulder
CPT/HCPCS: 73221

== ENCOUNTER 2025-01-04 09:06 | Outpatient (CLI) | payer MEDICARE, BC, SELFPAY ==
--- OUTSIDE RECORDS SUMMARY | 2025-01-04 09:29 | XMS_ITS | Encounter Summary ---
Author Organization [facility] Health Address [address] [facility] [place] [address] Care Team Providers Care Juvenile Detention Officer Name Role Phone Keon Alston MD Primary Care Provider [phone] Reason for Visit * Reason Onset Date Comments Med Question 09/10/2024 Encounter Details Date Type Department Care Team (Late st Contact Info) Description 09/10/2024 Telephone [facility] - Dermatology [address] [place] [address], [facility] [place] [address] Prema Manning MD [address] [place] [address] [address] [place] [address] Med Question Social History Tobacco Use Types Packs/Day Years Used Date Smoking Tobacco: Never Smokeless Tobacco: Never Alcohol Use Standard Drinks/Week Comments Yes 2 (1 standard drink = 0.6 oz pur e alcohol) 1 glass of wine per day PHQ-2 Answer Date Recorded PHQ2 TOTAL SCORE 0 10/11/2020 Comments No Sex and Gender Information Value Date Recorded Sex Assigned at Female 03/20/2022 9:42 PM LABORATORY TESTER Legal Sex Female 6:16 AM LABORATORY TESTER Gender Identity Female 03/20/2022 9:42 PM LABORATORY TESTER Sexual Orientation Straight 03/20/2022 9: 42 PM LABORATORY TESTER documented as of this encounter Miscellaneous Notes * Telephone Encounter - Maxwell Spear - 09/10/2024 11:05 AM CDT Spoke to pt she is needing more refills on her photo therapy at home machine. * Telephone Encounter - Svetlana Lee - 09/10/2024 8:49 AM CDT Pt has left a message regarding refill for her treatment. Please follow up with pt for further information. CB# [phone] documented in this encounter Plan of Treatment Upcoming Encounters Date Type Department Care Team (Late st Contact Info) Description 04/13/2025 12:50 PM LABORATORY TESTER Office Visit [facility] - Dermatology [address] [place] [address], [place] [id number] Prema Manning MD [address] [place] [address] 3 [place] [address] documented as of this encounter Visit Diagnoses Not on filedocumented in this encounter Care Teams Juvenile Detention Officer Relationship Specialty Start Date End Date Keon Alston MD [address] [place] [phone] PCP - General Family Medicine 05/07/23 documented as of this encounter
--- OUTSIDE RECORDS SUMMARY | 2025-01-04 09:29 | XMS_ITS | Clinical Summary ---
Author Organization [facility] Address [address] [place] [address] Care Team Providers Care Net Wpf Developer Name Role Phone Keon Alston MD Primary Care Provider [phone] Source Comments [facility],non-owned Affiliates and Associated Physician Practices is amultiple site organization consisting of ambulatory clinics and hospital sitesin [place], [place], [place] and [place]. This disclosure is being madepursuant to the Care Everywhere program and may not contain all information available regarding this patient. Last updated 17.[facility] Allergies Active Allergy Reactions Criticality Noted Date [...] document. Alwaysverify current medications with the patient. folic acid (FOLVITE) 1 MG tablet Take 1 (one) tablet by mouth 02/25/20 17 Active Cyanocobalamin (B-12) 1000 MCG Take 1 tablet by mouth Active candesartan (ATACAND) 8 MG tablet Take 1 (one) tablet by mouth Active CALCIUM CITRATE-VITAMIN D PO Take 600 mg by mouth Active esomeprazole (NEXIUM) 40 MG capsule Take 1 (one) capsule by mouth once daily 09/07/19 21 Active ALPRAZolam (XANAX) 0.25 MG tablet TAKE 1 TABLET BY MOUTH THREE TIMES A DAY NEEDED FOR ANXIETY 09/13/19 21 Active vitamin D, ergocalciferol, (DRISDOL) 1.25 MG (18683 UT) capsule JUAN ANTONIO 1 CAPSULE BY MOUTH ONCE MONTHLY FOR LOW VITAMIN D 09/23/19 21 Active Multiple Vitamins-Mineral s (OCUVITE ADULT 50+ PO) Take by mouth once daily Active triamcinolone acetonide (KENALOG) 0.1 % ointmentIndicati ons:Other psoriasis Apply to affected areas on trunk and extremities up to twice daily. 30 days supply. 80 g 4 05/25/19 22 Active estradiol (ESTRACE) 0.1 MG/GM vaginal cream APPLY 1/2 GRAM INTRAVAGINALLY THREE TIMES WEEKLY 04/17/19 22 Active ketoconazole (Nizoral) 2 % cream Apply to feet twice daily. 30 days supply. 60 g 11 03/20/20 22 Active ALPRAZolam (Xanax) 0.25 MG tablet Take 1 (one) tablet by mouth 3 times daily as needed Active betamethasone valerate (Valisone) 0.1 % cream Apply to affected area 3 times daily as needed 01/02/20 23 Active calcipotriene (Dovonex) 0.005 % ointment Apply to affected area two times daily at 4am and 4pm Active ciprofloxacin 0.3% (Ciloxan) 0.3 % ophthalmic solution INSTILL 1-2 DROPS IN LEFT EYE EVERY 2HR UP TO 8 TIMES A DAY FOR 2 DAYS THEN 4 TIMES A DAY FOR 5DAYS. 03/12/20 23 Active clotrimazole (Lotrimin AF) 1 % cream APPLY TOPICALLY TO THE AFFECTED AREA 3 TIMES DAILY NEEDED 01/01/20 23 Active fluconazole (Diflucan) 150 MG tablet TAKE 1 TABLET BY MOUTH ON DAYS 1, 3, AND 7 12/06/19 23 Active Proctofoam HC 1-1 % foam APPLY RECTALLY TWICE A DAY 12/30/19 23 Active hydrocortisone, rectal, (Anusol-HC) 2.5 % cream Apply to affected area 2 times daily 02/01/20 23 Active fluorometholone (FML) 0.1 % ophthalmic suspension 05/05/19 24 Active sertraline (Zoloft) 25 MG tablet Take 1 (one) tablet by mouth once daily 05/15/19 23 Active triamcinolone acetonide (Kenalog) 0.025 % lotion APPLY TOPICALLY TWICE A DAY 03/13/20 23 Active betamethasone dipropionate (Diprosone) 0.05 % ointmentIndicati ons:Other psoriasis Apply to thick plaques areas daily PRN 60 g 1 09/23/19 25 Active Active Problems Problem Noted Date Diagnosed Date Other psoriasis 10/11/2020 Pseudophakia 10/06/2017 Immunizations Immunization Administration Dates Next Due INFLUENZA VACCINE, TRIV. (AF LURIA, FLUZONE TRIVALENT; 6MO+) (IIV3) 01/26/2019 Bombfell primary monoval ent 12+ yr 0.3mL Purple [...] Sex Assigned at Female 03/20/2022 9:42 PM SUPERVISOR PREP Legal Sex Female 6:16 AM SUPERVISOR PREP Gender Identity Female 03/20/2022 9:42 PM SUPERVISOR PREP Sexual Orientation Straight 03/20/2022 9: 42 PM SUPERVISOR PREP Last Filed Vital Signs Vital Sign Reading Time Taken Comments Blood Pressure 132/64 10/11/2020 11:07 AM CDT Pulse 63 11/13/2017 8:51 AM CDT Temperature 36.8 C (98.3 F) 10/11/2020 11:07 AM CDT Respiratory Rate 15 11/13/2017 8:51 AM CDT Oxygen Saturation 98% 11/13/2017 8:51 AM CDT Inhaled Oxygen Concentration - - Weight 59.9 kg (132 lb) 10/11/2020 11:07 AM CDT Height 152.4 cm (5') 10/11/2020 11:07 AM CDT Body Mass Index 25.78 10/11/2020 11:07 AM CDT Plan of Treatment Upcoming Encounters Date Type Department Care Team (Late st Contact Info) Description 04/13/2025 12:50 PM SUPERVISOR PREP Office Visit [facility] - Dermatology [address] [place] [address], [facility] [place] [address] Prema Manning MD [address] [place] [address] [address] [place] [address] Health Maintenance Due Date Last Done Comments BONE DENSITY TESTING 1945 MEDICARE AWV 12 MONTHS 1945 DTAP/TDAP/TD VACCINES (1 - Tdap) 1964 ZOSTER VACCINE (2 of 3) 09/13/2011 07/19/2011 PNEUMOCOCCAL VACCINE 50+ (2 of 2 - PCV) 11/17/2013 11/17/2012 Respiratory Syncytial Virus (RSV) Vaccine Pt: or over 60 yrs (1 - 1-dose 75+ series) 2020 DEPRESSION SCREENING 03/31/2024 COVID-19 VACCINE ( season) 2024 05/22/2020, 04/27/2020 INFLUENZA VACCINE (#1) 2024 2, 12/08/2020, 02/13/2020, Additional history exists HEPATITIS B VACCINE Aged Out No longe r eligible based on patient's age to complete this topic HIB VACCINE Aged Out No longer eligi ble based on patient's age to complete this topic HPV VACCINE Aged Out No longer eligi ble based on patient's age to complete this topic MENINGOCOCCAL (Group B) VACCINE SHARED DECISION-MAKING Aged Out No longer eligible based on patient's age to complete this topic MENINGOCOCCAL GROUPS A/C/Y/W VACCINE Aged Out No longer eligible based on patient's age to complete this topic Medical Devices Implanted Type Area Social Work Manager Device Identifier Shelf Expiration Date Model / Serial / Lot Blade Acrysof Iq Toric Iol Implanted:Qty: 1 on 11/13/2017 by Cesar Roth MD at [facility] Right: Eye 06/28/2021 [id number] / [id number] / Description:5.25 CY[place] [address] [facility] ANTH MEDICARE Advance Directives * Full Code (Latest Code Status on File) Date Activated Date Inactivated Comments 11/13/2017 8:47 AM 11/13/2017 10:27 AM * Full Code Date Activated Date Inactivated Comments 11/12/2017 4:12 PM 11/13/2017 8:47 AM Care Teams Net Wpf Developer Relationship Specialty Start Date End Date Keon Alston MD [address] [place] [phone] PCP - General Family Medicine 05/07/23
--- OUTSIDE RECORDS SUMMARY | 2025-01-04 09:29 | XMS_ITS | Encounter Summary ---
Author Organization [facility] Address [address] [facility] [place] [address] Care Team Providers Care Purchasing Expeditor Name Role Phone AngelJuvencio henderson Sherwin CRESPO Primary Care Provider [phone] Keon Alston MD Primary Care Provider [phone] Encounter Details Date Type Department Care Team (Late st Contact Info) Description 01/04/2019 Telephone [facility] [address] [place] [address] Cesar Roth MD [address] [facility] [place] [address] Social History Tobacco Use Types Packs/Day Years Used Date Smoking Tobacco: Never Smokeless Tobacco: Never Alcohol Use Standard Drinks/Week Comments Yes 0 (1 standard drink = 0.6 oz pur e alcohol) 1 glass of wine per week Comments Unknown Sex and Gender Information Value Date Recorded Sex Assigned at Female 03/20/2022 9:42 PM SYSTEMS PROGRAM MANAGER Legal Sex Female 6:16 AM SYSTEMS PROGRAM MANAGER Gender Identity Female 03/20/2022 9:42 PM SYSTEMS PROGRAM MANAGER Sexual Orientation Straight 03/20/2022 9: 42 PM SYSTEMS PROGRAM MANAGER documented as of this encounter Miscellaneous Notes * Telephone Encounter - Loretta Juárez - 01/04/2019 9:09 AM CDT Pt only documented in this encounter Plan of Treatment Upcoming Encounters Date Type Department Care Team (Late st Contact Info) Description 04/13/2025 12:50 PM SYSTEMS PROGRAM MANAGER Office Visit [facility] - Dermatology [address] [facility], [place] [address] Prema Manning MD [address] [place] [address] [address] [place] [phone] documented as of this encounter Visit Diagnoses Not on filedocumented in this encounter Care Teams Purchasing Expeditor Relationship Specialty Start Date End Date Juvencio Ortiz DO [address] [place], [place] [id number] PCP - General 01/04/19 05/06/23 Keon Alston MD [address] [place] [phone] PCP - General Family Medicine 05/07/23 documented as of this encounter
--- OUTSIDE RECORDS SUMMARY | 2025-01-04 09:29 | XMS_ITS | Clinical Summary ---
Author Organization [facility] Address [address] [place] [address] Care Team Providers Care Garage Supervisor Name Role Phone Graeme Patricia MD Unavailable [phone] Ramos Chapa MD Unavailable [phone] Keon Alston MD Primary Care Provider [phone] Allergies Active Allergy Reactions Criticality Noted Date Comments Codeine Diarrhea,Syncope High 03/21/2017 Erythromycin Nausea And Vomiting High 03/21/2017 Ezetimibe Diarrhea Low Levofloxacin Diarrhea High 03/21/2017 Fecfzts-Zld-Yji Reductase Inhibitors Muscle pain Medium 04/20/2018 Muscle [...] on file Legal Sex Female 5:05 AM AIRPLANE TUBE BUILDER Gender Identity Female 02/06/2024 10:36 AM AIRPLANE TUBE BUILDER Sexual Orientation Not on file Obstetrics History Para Term AB IAB SAB Ectopic Multiple Livin g Live Births 0 0 0 0 0 0 0 0 0 0 0 Last Filed Vital Signs Vital Sign Reading Time Taken Comments Blood Pressure 116/90 04/20/2018 11:40 AM AIRPLANE TUBE BUILDER Pulse 67 04/20/2018 11:40 AM AIRPLANE TUBE BUILDER Temperature 36.6 C (97.9 F) 04/20/2018 11:10 AM AIRPLANE TUBE BUILDER Respiratory Rate 14 04/20/2018 11:10 AM AIRPLANE TUBE BUILDER Oxygen Saturation 99% 04/20/2018 11:40 AM AIRPLANE TUBE BUILDER Inhaled Oxygen Concentration - - Weight 61.2 kg (135 lb) 05/01/2018 12:39 PM AIRPLANE TUBE BUILDER Height 154.9 cm (5' 1) 05/01/2018 12:39 PM AIRPLANE TUBE BUILDER Body Mass Index 25.51 05/01/2018 12:39 PM AIRPLANE TUBE BUILDER Plan of Treatment Health Maintenance Due Date Last Done Comments Depression Screening 1945 Fall Risk Assessment 1945 Hepatitis C Screening 1945 Osteoporosis Screening-Bone Density Scan 1945 DTaP/Tdap/Td Vaccine (1 - Tdap) 1956 Hepatitis B Screening 12/02/1963 Well Visit 65+ 2010 Zoster Vaccine (2 of 3) 09/13/2011 07/19/2011 Pneumococcal vaccine 65+ (2 of 2 - PCV) 11/17/2013 11/17/2012 Influenza Vaccine (#1) 2024 2, 12/08/2020, 02/13/2020, Additional history exists Breast Cancer Screening-Mammogram Discontinued 07/12/2024, 07/07/2023, 07/04/2022, Additional history exists Procedures Procedure Name Priority Date/Time Associated Diagnosis Comments SCREENING MAMMOGRAM BILATERAL W JOSE Schedule Routine, Read Routine (OP Routine) 07/12/2024 1:26 PM CDT Screening mammogram, encounter for from Last 3 Months or Most Recently Relevant to Health Maintenance Results * Screening Mammogram Bilateral W Jose (07/12/2024 1:26 PM CDT) Anatomical Region Laterality Modality Breast Bilateral Mammography Impressions 07/12/2024 1:59 PM CDT BI-RADS ATLAS category (overall): 2 - Benign There is no mammographic evidence of malignancy. A 1 year screening mammogram is recommended. The patient has been or will be contacted. We recommend annual screening mammography for women at average risk of breast cancer beginning at age 40, based on guidelines of the [employer] (ACR Practice Parameter for the Performance of Screening and Diagnostic Mammography) and [employer]. For women with and elevated risk of breast cancer, please refer to the ACR Practice Parameter for specific screening recommendations. The patient will be entered into a reminder system with a target due date of 1 year for her next screening exam. Narrative 07/12/2024 1:59 PM CDT Screening Mammogram Bilateral W Jose: 07/12/24 The study was acquired using full field digital technology and interpreted from soft copy. 2D digital mammographic views, as well as 3D digital tomosynthesis were performed in the CC and MLO projections. This study was resulted using Computer-Aided Detection (CAD). CLINICAL: Screening mammogram, encounter for. No relevant medical history has been documented for this patient. History of breast cancer in Sister. COMPARISONS: 07/07/2023 Screening Mammogram Bilateral W Jose 07/04/2022 Screening Mammogram Bilateral W Jose 06/29/2021 Screening Mammogram Bilateral W Jose BREAST TISSUE: The breasts are heterogeneously dense, which may obscure small masses. FINDINGS: There are post op changes on the left. No suspicious masses, suspicious calcifications, or other suspicious findings are seen within either breast. There has been no suspicious change. us Self Screening Mammogram IMG MAMMO PROCEDURES Fi nal Result from Last 3 Months or Most Recently Relevant to Health Maintenance Insurance MEDICARE [facility] ACCESS CHOICE ANTHEM ACCESS MEDICARE [facility] MEDICARE [facility] Care Teams Garage Supervisor Relationship Specialty Start Date End Date Keon Alston MD [address] [address] PCP - General Family Practice 04/07/23 Graeme Patricia MD Internal Medicine 05/18/20 Ramos Chapa MD [address] [address] Referring Physician Obstetrics and Gynecology 07/04/22
[2025-01-04 09:36] LABS: Hematocrit 41.7 % (37.0-47.0); Hemoglobin 13.5 g/dL (12.0-15.0); Mean Corpuscular HGB Conc 32.4 g/dl (32-36); Mean Corpuscular Hemoglobin 32.3 pg (26-34); Mean Corpuscular Volume 99.8 fl (80-100); Platelet Count Result 203 k/mm3 (150-375); Red Blood Count 4.18 M/mm3 (4.2-5.4); White Blood Count 5.0 K/mm3 (4.5-10.0)
[2025-01-04 10:03] LABS: Alanine Aminotransferase 12 U/L (6-35); Albumin Level 4.0 g/dL (3.5-5.1); Alkaline Phosphatase 57 U/L (38-126); Anion Gap 5 mmol/L (4-12); Aspartate Amino Transferase 26 U/L (14-36); Bilirubin,Total 0.4 mg/dL (0.2-1.3); Blood Urea Nitrogen 8 mg/dL (7-17); Calcium 9.0 mg/dL (8.4-10.2); Carbon Dioxide 29 mmol/L (22-30); Chloride 103 mmol/L (98-107); Estimated Glomerular Filt Rate > 60; Glucose 98 mg/dL (65-110); Potassium 4.0 mmol/L (3.4-5.0); Sodium 137 mmol/L (137-145); Total Protein 6.7 g/dL (6.3-8.2)
[2025-01-04 10:39] LABS: Thyroid Stimulating Hormone 3.110 uIU/mL (0.465-4.680)
[2025-01-04 11:00] LABS: Vitamin B12 > 1000.0 pg/mL (239-931)
== END 2025-01-04 09:07 | disposition home or self-care (01) ==
LOC: ANHLAB 09:08
PROVIDERS: PCP Family Medicine; Visit Provider Family Medicine
DX: K21.9 Gastro-esophageal reflux disease without esophagitis (principal); I10 Essential (primary) hypertension; E55.9 Vitamin D deficiency, unspecified; F41.9 Anxiety disorder, unspecified; F32.A Depression, unspecified; Z79.899 Other long term (current) drug therapy; I35.8 Other nonrheumatic aortic valve disorders; E78.2 Mixed hyperlipidemia; E05.90 Thyrotoxicosis, unspecified without thyrotoxic crisis or storm; Z79.890 Hormone replacement therapy
CPT/HCPCS: 36415; 80053; 82306; 82607; 84443; 85027